=== PATIENT | male | born 1970 | race Caucasian/White ===

== ENCOUNTER 2021-06-05 08:30 | Inpatient (IN) | payer MEDICARE, SELFPAY ==
[2021-06-05] VITALS (14 sets, daily range): BP systolic 81–108; BP diastolic 46–75; PULSE 62–83; RESP 14–20; TEMP 36.1–39.4; O2SAT 94–100; BMI 25.4; BMI 25.7
--- NOTE | 2021-06-05 08:44 | RAD_ITS ---
STUDY: X-RAY CHEST REASON FOR EXAM: Male, 50 years old. Chest pain TECHNIQUE: Single AP portable view of the chest. COMPARISON: Comparison is made with prior study dated 11/25/2011. FINDINGS: EKG electrodes are seen. Patchy bilateral pulmonary infiltrates. Follow-up is recommended. There is no demonstrated pleural abnormality. Sternal cerclage wires are present from a prior sternotomy. Normal mediastinum and ang. Normal visualized pulmonary arteries. Normal visualized aortic arch and descending thoracic aorta. There is a dextroscoliosis of the thoracic spine. Normal visualized ribs, clavicles, and shoulders. There is no demonstrated abnormality of the visualized soft tissue structures of the upper abdomen. RAD/Chest 1 View (Portable) IMPRESSION: Patchy bilateral pulmonary infiltrates. Follow-up is recommended. Electronically Signed: Alex Atkinson MD at 9:15 EDT , Service support ,
--- NOTE | 2021-06-05 08:44 | EKG12_ITS ---
Test Reason : SYNCOPE Blood Pressure : / mmHG Vent. Rate : 061 BPM Atrial Rate : 061 BPM P-R Int : 140 ms QRS Dur : 090 ms QT Int : 430 ms P-R-T Axes : 038 047 027 degrees QTc Int : 432 ms Normal sinus rhythm Incomplete right bundle branch block Confirmed by MATEO PARKER, SHAYNE ([id number]), telegraph editor JOSE ARITA ([id number]) on 06/06/2021 1:21:34 PM Referred By: JANNA Confirmed By:SHAYNE GALINDO MD
--- NOTE | 2021-06-05 09:03 | EDS_ITS ---
HPI History of Present Illness Chief Complaint: Syncope Narrative Narrative: 50-year-old male with high functioning MRDD presenting with syncope. Patient initially had syncope at [facility] on Friday. His father and mother thought that he was just overheated and they put a rag with cold water on him and he seemed to be okay at that point. They state that they all ate at [facility] and all developed a little bit of diarrhea. Patient does states he has some epigastric discomfort. This morning he had an episode of syncope at home which was unwitnessed. His father states that he heard him fall in the bathroom. He states he told him to go get dressed so he can take him to the emergency room. Patient had another episode of syncope. His mother states that he was clammy. He denies any chest pain or shortness of breath. He has nausea without vomiting. His parents state that he has not been eating as much for the last couple of days. She sent him to school yesterday with a sandwich and he came back with half of a sandwich and was not very hungry. She tried to make him chicken soup. They state that he has a history of spontaneous intracranial bleeding in 2011. He had similar symptoms around that time. There is no known head injury. Patient is not on blood thinners. He is not currently having a headache. He states that he has not had fever or coughing. His father states that he watched him through the rearview mirror and he is falling asleep in the car. He was found to be incontinent of urine upon arrival to the ED. There is no known seizure activity. PFSH PFSH Home Medications bupropion HCl 150 mg PO DAILY 06/05/21 [History Last Taken Unknown] cholecalciferol (vitamin D3) [Vitamin D3] 50 mcg PO DAILY 06/05/21 [History Last Taken Unknown] levothyroxine 88 mcg PO DAILY 06/05/21 [History Last Taken Unknown] simvastatin 20 mg PO DAILY 06/05/21 [History Last Taken Unknown] Allergy/AdvReac Type Severity Reaction Status Date / Time No Known Allergies Allergy Verified 06/05/21 08:35 Social History Smoking Status: Never smoker ROS [facility] ED Constitutional Constitutional ED: Denies chills or fever(s) Eyes Eyes: Denies blurry vision or diplopia ENT ENT ED: Denies rhinorrhea or sore throat Cardiovascular Cardiovascular: Denies chest pain, palpitations or racing heartbeat Respiratory/Chest Respiratory/Chest: Denies cough or dyspnea Gastrointestinal Gastrointestinal: Reports abdominal pain, diarrhea and nausea Genitourinary Genitourinary ED: Denies dysuria or hematuria Musculoskeletal Musculoskeletal: Denies arthralgias or myalgias Integumentary Denies abscess or rash Neurologic Neurologic: Denies headache(s) or weakness EXAM Physical Exam Const Vital Signs: 06/05/21 08:31 06/05/21 10:32 Temperature 98.6 F Temperature Source Oral Pulse Rate 64 64 Respiratory Rate 18 18 Blood Pressure 83/65 L 99/69 Blood Pressure Mean 71 79 Pulse Ox 95 94 Oxygen Delivery Method Room Air Room Air Positive well nourished General Appearance ED: NAD; Negative for pallor HEENT Reports moist mucous membranes Negative for trauma or tenderness Eyes PERRL and EOMs intact bilaterally Resp normal respiratory effort and clear to auscultation bilaterally Cardio regular rate and regular rhythm GI GI Narrative: Mild epigastric tenderness. Back/Spine no CVA tenderness Extremity normal to inspection Neuro oriented x3, CN's II-XII intact bilaterally and no sensory deficits noted Sensorium / Orientation: alert Motor Exam: strength 5/5 throughout Psych mental status grossly normal Skin no rashes or lesions noted and no wounds General Skin Exam: Negative for jaundice or pallor MDM MDM MDM Narrative Medical decision making narrative: Patient presenting with 3 episodes of syncope this morning. Patient also had an episode of syncope at [facility] on Friday. His parents state that he has decreased p.o. intake since yesterday. He has not had a known fever. He did complain of some nausea. His EKG on my interpretation is a normal sinus rhythm with a ventricular rate of 61 bpm without sign of ischemic changes. Chest x-ray on my interpretation shows patchy bilateral infiltrates. Patient is leukopenic and lymphopenic. Hemoglobin and hematocrit are stable. Renal function and electrolytes are normal. LFTs are slightly elevated. Patient had a D-dimer of 7.24 [address] a CT of the chest. He does have diffuse pneumonitis but no pulmonary emboli or dissection. CT of the abdomen pelvis showed diffuse bladder wall thickening and bilateral hydronephrosis. Urinalysis was negative for infection. Patient attempted to stand to give a urine sample and had an episode of syncope while in the emergency room. Once he laid down he felt improved. He was immediately responsive and I do not believe he had a seizure. He states that he feels fine when he is laying in bed. Patient's Covid testing did come back positive. He has not required any oxygen. He was given IV fluids and his blood pressure did improve however given that episode of syncope I do not feel he will be safe to go home. Patient discussed with hospitalist and is admitted in stable condition. Impression: 1. Syncope 2. COVID-19 pneumonitis 3. Hypertension Lab Data Labs: Laboratory Results - last 24 hr 06/05/21 06/05/21 06/05/21 09:33 09:33 09:33 WBC 2.1 L RBC 4.69 Hgb 15.2 Hct 44.5 MCV 94.9 H MCH 32.4 H MCHC 34.2 RDW Std Deviation 48.6 H RDW Coeff of Annelise 13.9 Plt Count 82 L MPV 9.3 Immature Gran % (Auto) 1.400 H Neut % (Auto) 78.9 H Lymph % (Auto) 14.4 L [place] % (Auto) 4.8 Eos % (Auto) 0.0 Baso % (Auto) 0.5 Absolute Neuts (auto) 1.7 L Absolute Lymphs (auto) 0.30 L Nucleated RBC % 0 Differential Comment COMMENT Diff Path Review May foll Platelet Estimate MOD DEC PT 13.1 INR 1.1 D-Dimer Quant (PE/DVT) 7.24 H* Sodium 136 Potassium 3.6 Chloride 104 Carbon Dioxide 26.0 Anion Gap 6 BUN 13 Creatinine 1.10 Estim Creat Clear Calc 66.39 Est GFR (MDRD) Af Amer 92 Est GFR (MDRD) Non-Af 76 BUN/Creatinine Ratio 11.8 Glucose 124 H Lactic Acid Calcium 8.1 L Total Bilirubin 0.40 Direct Bilirubin 0.16 AST 189 H ALT 187 H Alkaline Phosphatase 115 Troponin I High Sens 58 Total Protein 6.7 Albumin 2.9 L Globulin 3.8 Lipase 174 Urine Color Urine Clarity Urine pH Ur Specific [place] Urine Protein Urine Glucose (UA) Urine Ketones Urine Occult Blood Urine Nitrite Urine Bilirubin Urine Urobilinogen Ur Leukocyte Esterase Urine RBC Urine WBC Ur Squamous Epith Cells Urine Bacteria Urine Mucus 06/05/21 06/05/21 09:33 11:42 WBC RBC Hgb Hct MCV MCH MCHC RDW Std Deviation RDW Coeff of Annelise Plt Count MPV Immature Gran % (Auto) Neut % (Auto) Lymph % (Auto) [place] % (Auto) Eos % (Auto) Baso % (Auto) Absolute Neuts (auto) Absolute Lymphs (auto) Nucleated RBC % Differential Comment Diff Path Review Platelet Estimate PT INR D-Dimer Quant (PE/DVT) Sodium Potassium Chloride Carbon Dioxide Anion Gap BUN Creatinine Estim Creat Clear Calc Est GFR (MDRD) Af Amer Est GFR (MDRD) Non-Af BUN/Creatinine Ratio Glucose Lactic Acid 1.1 Calcium Total Bilirubin Direct Bilirubin AST ALT Alkaline Phosphatase Troponin I High Sens Total Protein Albumin Globulin Lipase Urine Color Yellow Urine Clarity Clear Urine pH 7.0 Ur Specific [place] 1.010 Urine Protein Negative Urine Glucose (UA) Normal Urine Ketones 5 H Urine Occult Blood 50 H Urine Nitrite Negative Urine Bilirubin Negative Urine Urobilinogen Normal Ur Leukocyte Esterase Negative Urine RBC 0 SEEN Urine WBC 0 SEEN Ur Squamous Epith Cells 0 SEEN Urine Bacteria 0 SEEN Urine Mucus 0 SEEN Radiography Diagnostic Testing: Radiology Impression Chest X-Ray 06/05/21 08:44 IMPRESSION: Patchy bilateral pulmonary infiltrates. Follow-up is recommended. Electronically Signed: Alex Atkinson MD at 9:15 EDT , Service support , Brain CT 06/05/21 09:06 IMPRESSION: Findings in keeping with encephalomalacia in the deep right frontal lobe with mild degree of dilatation of the right lateral ventricle at that site. Electronically Signed: Alex Atkinson MD at 10:59 EDT , Service support , Abdomen/Pelvis CT 06/05/21 09:07 IMPRESSION: Patchy bibasilar pulmonary infiltrates. Fatty infiltration of the liver. Bilateral hydronephrosis. Diffuse bladder wall thickening with small caliber urinary bladder. Electronically Signed: Alex Atkinson MD at 11:02 EDT , Service support , Chest CTA 06/05/21 10:22 IMPRESSION: Diffuse bilateral focal alveolar infiltrates in both lungs. Pneumonitis secondary to Covid should be ruled out. Electronically Signed: Alex Atkinson MD at 11:16 EDT , Service support , Discharge Plan Disposition Disposition: Acute Care Hospital [facility] Discharge Date/Time: 06/05/21 12:43
--- NOTE | 2021-06-05 09:06 | CT_ITS ---
STUDY: CT BRAIN WITHOUT CONTRAST REASON FOR EXAM: Male, 50 years old. Syncope RADIATION DOSAGE (If Supplied By Facility): CTDIvol = ( 44.99 ) mGy, DLP = ( 796.11 ) mGycm TECHNIQUE: Transaxial CT imaging of the brain was performed without administration of intravenous contrast material. Individualized dose optimization techniques were used for this CT. COMPARISON: Comparison is made with prior study dated 09/08/2012. FINDINGS: Normal soft tissue structures. Normal calvarium. Normal size ventricles and extra-axial spaces for the patient''s age. Focal encephalomalacia is seen in the right deep frontal lobe. This most likely represents an old area of infarction. This has progressed as compared to prior study. Mild degree of compensatory dilatation of the right lateral ventricle. Normal basal ganglia and thalami. Normal brainstem. Normal cerebellum. There is no intracranial hemorrhage. There are no findings of an acute ischemic infarction. Normal visualized paranasal sinuses. CT/Brain/Head without Contrast IMPRESSION: Findings in keeping with encephalomalacia in the deep right frontal lobe with mild degree of dilatation of the right lateral ventricle at that site. Electronically Signed: Alex Atkinson MD at 10:59 EDT , Service support ,
--- NOTE | 2021-06-05 09:07 | CT_ITS ---
STUDY: CT ABDOMEN AND PELVIS WITH CONTRAST REASON FOR EXAM: Male, 50 years old. Abdominal pain RADIATION DOSAGE (If Supplied By Facility): CTDIvol = ( 12.99 ) mGy, DLP = ( 1031.89 ) mGycm TECHNIQUE: Transaxial images were obtained from the dome of the diaphragm to the symphysis pubis without oral contrast. IV 100mL Isovue-370 was administered. Sagittal and coronal images were reconstructed. Individualized dose optimization techniques were used for this CT. COMPARISON: None. FINDINGS: Patchy alveolar infiltrates are seen at the lung bases in keeping with her bilateral patchy pneumonias. The visualized portions of the heart are within normal limits. There is decreased attenuation of the liver consistent with steatosis. The patient is status post cholecystectomy. Normal spleen. Normal pancreas. Normal bilateral adrenal glands. Mild degree of bilateral hydronephrosis. Normal visualized stomach. Normal small intestine. Normal colon. The appendix is visualized and appears normal. Normal abdominal aorta. Normal inferior vena cava. Normal retroperitoneum. Diffuse bladder wall thickening. Small capacity urinary bladder. There is a small umbilical hernia containing fat. There are degenerative changes of the visualized lumbar spine. CT/Abdomen/Pelvis W IV Cont ONLY IMPRESSION: Patchy bibasilar pulmonary infiltrates. Fatty infiltration of the liver. Bilateral hydronephrosis. Diffuse bladder wall thickening with small caliber urinary bladder. Electronically Signed: Alex Atkinson MD at 11:02 EDT , Service support ,
[2021-06-05 09:47] LABS: Absolute Neutrophil Count 1.7 X10^3/uL (2.0-7.7); Basophil# 0.01 X10^3/uL; Basophil% 0.5 % (0-1); Differential Indicated SCAN CRITERIA MET; Hematocrit 44.5 % (40-54); Hemoglobin 15.2 g/dL (13.0-16.5); Lymphocyte % 14.4 % (19-41); Mean Corp Hgb Conc 34.2 g/dL (32-36); Mean Corpuscular Hgb 32.4 pg (27.0-32.0); Mean Corpuscular Volume 94.9 fL (80-94); Mean Platelet Vol. 9.3 fl (6.2-12.0); Monocyte% 4.8 % (0-10); NRBC Flagged by Analyzer 0 % (0-5); Neutrophil # 1.65 X10^3/uL (2.7-7.7); Neutrophil % 78.9 % (47-70); POSITIVE COUNT YES; POSITIVE DIFFERENTIAL YES; POSITIVE MORPHOLOGY YES; Platelet Count 82 K/mm3 (150-450); RBC Distribution Width CV 13.9 % (11.6-14.6); RBC Distribution Width SD 48.6 fl (35.1-43.9); Red Blood Count 4.69 M/mm3 (4.6-6.2); White Blood Count 2.1 K/mm3 (4.4-11.0)
[2021-06-05 09:57] LABS: International Normalized Ratio 1.1; Prothrombin Time (Protime)PT. 13.1 SECONDS (11.7-14.9)
[2021-06-05 10:03] LABS: AST(SGOT) 189 U/L (15-37); Alanine Aminotransfer ALT/SGPT 187 U/L (16-61); Albumin, Serum 2.9 g/dL (3.2-5.0); Alkaline Phosphatase 115 U/L (45-117); Anion Gap 6 (5-15); BUN 13 mg/dL (7-18); BUN/Creat Ratio 11.8 RATIO (10-20); Bilirubin, Direct 0.16 mg/dL (0.00-0.30); Calcium,Total 8.1 mg/dL (8.5-10.1); Chloride 104 mmol/L (98-107); EST Glomerular Filtration Rate 76 mL/min (>60); Est Glom Filt Rate - Afr Amer 92 mL/min (>60); Estimated Creatinine Clearance 66.39 ml/min; Globulin 3.8 g/dL (2.2-4.2); Glucose 124 mg/dL (74-106); Lipase 174 U/L (73-393); Potassium 3.6 mmol/L (3.5-5.1); Protein, Total 6.7 g/dL (6.4-8.2); Sodium Level 136 mmol/L (136-145); Troponin-I HS 58 pg/mL (3.0-78.0)
[2021-06-05 10:20] LABS: D-Dimer Quantitative (DVT/PE) 7.24 FEU/ug/m (0.27-0.49)
--- NOTE | 2021-06-05 10:22 | CT_ITS ---
STUDY: CTA CHEST REASON FOR EXAM: Male, 50 years old. Dyspnea RADIATION DOSAGE (If Supplied By Facility): CTDIvol = ( 12.99 ) mGy, DLP = ( 1031.89 ) mGycm TECHNIQUE: The examination was performed with the intravenous administration of IV 100mL Isovue-370. Post-processing of the angiographic images was performed, with multiplanar reformation and 3D reconstruction. Individualized dose optimization techniques were used for this CT. COMPARISON: Comparison is made with prior chest radiograph done earlier in the day. FINDINGS: Normal enhancement of the main pulmonary artery and right and left pulmonary arteries. Normal enhancement of the bilateral peripheral pulmonary arteries. There is no demonstrated pulmonary embolism. Normal thoracic aorta and visualized great vessels. There is no demonstrated aortic dissection. Normal heart and pericardium. Normal mediastinum. Normal hilar regions. Normal visualized trachea and bronchi. The lungs are well expanded. There are diffuse bilateral focal alveolar infiltrates in both lungs. This is more prominent in the lower lobes. Pneumonitis secondary to Covid should be ruled out. Normal pleura. Normal chest wall structures. Normal osseous structures. Normal visualized upper abdomen. CT/CTA Chest W/WO Contrast IMPRESSION: Diffuse bilateral focal alveolar infiltrates in both lungs. Pneumonitis secondary to Covid should be ruled out. Electronically Signed: Alex Atkinson MD at 11:16 EDT , Service support ,
[2021-06-05 10:27] LABS: Platelet Estimate MOD DEC (ADEQ)
[2021-06-05 10:29] LABS: Lactic Acid 1.1 mmol/L (0.4-1.9)
[2021-06-05 11:46] LABS: Bacteria 0 SEEN /hpf (None Seen); Mucous, Urine 0 SEEN /hpf (<or=2+); Red Blood Cells-Urine 0 SEEN /hpf (0-5); Squamous Epithelial Cells - UA 0 SEEN /hpf (0-5); White Blood Cells 0 SEEN /hpf (0-5)
[2021-06-05 11:47] LABS: Color, Urine Yellow (Yellow); Glucose, Dipstick Normal (Normal); Ketone-Dipstick 5 mg/dl (Negative); Leukocyte Esterase-Dipstick Negative /ul (Negative); Nitrite-Dipstick Negative (Negative); Occult Blood-Urine 50 /ul (Negative); Protein-Dipstick Negative (Negative); Urine Bilirubin Dipstick Negative (Negative); Urine Clarity Clear (Clear); Urine Urobilinogen Normal (Normal)
--- NOTE | 2021-06-05 12:06 | NURSING ---
HOSPITALIST FOR DR [facility]
--- NOTE | 2021-06-05 12:14 | NURSING ---
[facility] COVID [facility], SYNCOPE
--- NOTE | 2021-06-05 12:24 | HP.PCM.HOS_ITS ---
HPI - General General Date of Admission: 06/05/21 Date of Service: 06/05/21 Chief Complaint: Recurrent syncope HPI Narrative RAMYA GUILLERMO, is a 50 M who presents with the above. Patient was seen in [place] over the weekend and subsequently was in [facility]. The weather was hot. Patient had a syncopal episode of the symmetry the lasted for few minutes. He was treated like heat exhaustion with cool packs. On the way home to [place], he slept for the most of the journey. On the day of admission, patient was in the bathroom and had a syncopal episode. It was not known how long this lasted. His dad found him on the bathroom floor, helped him out. He asked him to go to the bedroom and change. He had a witnessed syncope. In the emergency room, patient also had and a syncopal episode. He has history of Down syndrome, status post open heart surgery for VSD. History of hemorrhagic stroke in 2011. He has not been vaccinated. Vitals in the ED were low. Patient received IV fluids [facility] Medical History (Updated 06/06/21 @ 07:[address] Laila Bergman MD) Congenital heart disease Stroke, hemorrhagic Home Medications bupropion HCl 150 mg PO DAILY 06/05/21 [History Last Taken Unknown] cholecalciferol (vitamin D3) [Vitamin D3] 50 mcg PO DAILY 06/05/21 [History Last Taken Unknown] levothyroxine 88 mcg PO DAILY 06/05/21 [History Last Taken Unknown] simvastatin 20 mg PO DAILY 06/05/21 [History Last Taken Unknown] Allergy/AdvReac Type Severity Reaction Status Date / Time No Known Allergies Allergy Verified 06/05/21 08:35 Family History (Updated 06/06/21 @ 07:[address] Laila Bergman MD) Father No problems noted. Mother No problems noted. Surgical History (Updated 06/06/21 @ 07:[address] Laila Bergman MD) Hx of cholecystectomy S/P VSD repair Social History (Updated 06/06/21 @ 07:[address] Laila Bergman MD) household members: family Smoking Status: Never smoker alcohol intake: never substance use type: does not use ROS Review of Systems ROS Unobtainable: other Details: Unable to obtain secondary to MRDD Vital Signs Vital Signs Vital Signs: 06/05/21 08:31 06/05/21 10:32 06/05/21 12:21 Temperature 98.6 F 97 F L Temperature Source Oral Temporal Pulse Rate 64 64 67 Respiratory Rate 18 18 20 H Blood Pressure 83/65 L 99/69 98/75 Blood Pressure Mean 71 79 82 Pulse Ox 95 94 95 Oxygen Delivery Method Room Air Room Air Room Air Weight Weight: 57.153 kg Body Mass Index (BMI) 25.4 Physical Exam Narrative Physical exam: General: Alert, Oriented x3, Cooperative, No apparent distress, Well developed HEENT: Atraumatic, moist oral mucosa Oral: Moist Mucosa Neck: Supple Lungs: Clear to auscultation Cardiovascular: HS I+II, regular, no murmurs Abdomen: Bowel Sounds Present, Soft, Non Tender Results Lab / Micro Data Result Diagrams: 06/06/21 06:55 06/06/21 06:55 Labs: Laboratory Results - last 24 hr 06/05/21 09:33: WBC 2.1 L, RBC 4.69, Hgb 15.2, Hct 44.5, MCV 94.9 H, MCH 32.4 H, MCHC 34.2, RDW Std Deviation 48.6 H, RDW Coeff of Annelise 13.9, Plt Count 82 L, MPV 9.3, Immature Gran % (Auto) 1.400 H, Neut % (Auto) 78.9 H, Lymph % (Auto) 14.4 L , [place] % (Auto) 4.8, Eos % (Auto) 0.0, Baso % (Auto) 0.5, Absolute Neuts (auto) 1.7 L, Absolute Lymphs (auto) 0.30 L, Nucleated RBC % 0, Differential Comment COMMENT, Diff Path Review May foll, Platelet Estimate MOD 06/05/21 09:33: Sodium 136, Potassium 3.6, Chloride 104, Carbon Dioxide 26.0, Anion Gap 6, BUN 13, Creatinine 1.10, Estim Creat Clear Calc 66.39, Est GFR (MDRD) Af Amer 92, Est GFR (MDRD) Non-Af 76, BUN/Creatinine Ratio 11.8, Glucose 124 H, Calcium 8.1 L, Total Bilirubin 0.40, Direct Bilirubin 0.16, AST 189 H, ALT 187 H, Alkaline Phosphatase 115, Troponin I High Sens 58, Total Protein 6.7, Albumin 2.9 L, Globulin 3.8, Lipase 174 06/05/21 09:33: PT 13.1, INR 1.1, D-Dimer Quant (PE/DVT) 7.24 H* 06/05/21 09:33: Lactic Acid 1.1 06/05/21 11:42: Urine Color Yellow, Urine Clarity Clear, Urine pH 7.0, Ur Specific [place] 1.010, Urine Protein Negative, Urine Glucose (UA) Normal, Urine Ketones 5 H, Urine Occult Blood 50 H, Urine Nitrite Negative, Urine Bilirubin Negative, Urine Urobilinogen Normal, Ur Leukocyte Esterase Negative, Urine RBC 0 SEEN, Urine WBC 0 SEEN, Ur Squamous Epith Cells 0 SEEN, Urine Bacteria 0 SEEN, Urine Mucus 0 SEEN Micro: Microbiology 06/05/21 09:10 Nasal Secretion SARS-CoV-2 Antigen (Rapid) - Final SARS-CoV-2 (COVID 19) Radiology Impression Chest X-Ray 06/05/21 08:44 IMPRESSION: Patchy bilateral pulmonary infiltrates. Follow-up is recommended. Electronically Signed: Alex Atkinson MD at 9:15 EDT , Service support , Brain CT 06/05/21 09:06 IMPRESSION: Findings in keeping with encephalomalacia in the deep right frontal lobe with mild degree of dilatation of the right lateral ventricle at that site. Electronically Signed: Alex Atkinson MD at 10:59 EDT , Service support , Abdomen/Pelvis CT 06/05/21 09:07 IMPRESSION: Patchy bibasilar pulmonary infiltrates. Fatty infiltration of the liver. Bilateral hydronephrosis. Diffuse bladder wall thickening with small caliber urinary bladder. Electronically Signed: Alex Atkinson MD at 11:02 EDT , Service support , Chest CTA 06/05/21 10:22 IMPRESSION: Diffuse bilateral focal alveolar infiltrates in both lungs. Pneumonitis secondary to Covid should be ruled out. Electronically Signed: Alex Atkinson MD at 11:16 EDT , Service support , Assessment & Plan Assessment/Plan (1) Pneumonia due to COVID-19 virus: (2) Recurrent syncope: (3) Dehydration: PLAN: 1. Recurrent syncope, likely secondary to dehydration, CT brain shows encephalomalacia in the deep right frontal lobe with mild degree of dilatation of the right lateral ventricle. Blood pressure was low in the ED, status post fluid boluses Check orthostatic vitals, continue gentle IV fluids, recheck orthostatic vitals in a.m. 2. Acute COVID-19 pneumonia without hypoxia, Chest x-ray shows bilateral patchy pulmonary infiltrates CTA chest shows diffuse bilateral focal alveolar infiltrates in both lungs. We will continue to monitor patient 3. Leukopenia secondary to COVID-19 pneumonia, will trend 4. Elevated D-dimer, acute PE ruled out 5. Elevated liver function test secondary to COVID-19 pneumonia, will trend 6. Slight elevation in troponin, likely demand secondary to #2 EKG shows no acute ST changes We will get 2D echo 7. Abnormal CT of the abdomen and pelvis - Bilateral hydronephrosis, diffuse bladder wall thickening with small caliber urinary bladder.\ UA is unremarkable Will start empiric antibiotics, urology consult, check bladder scan, possible gibson catheter placement Charges/Coding Visit Charges Inpatient E&M: 77930 Init Hosp L3
[2021-06-05] MEDS: 0.9% Normal Saline 1,000 ML 999 ML IV (12:40)
[2021-06-05 14:21] LABS: Troponin-I HS 80 pg/mL (3.0-78.0)
[2021-06-05 16:30] LABS: Troponin-I HS 81 pg/mL (3.0-78.0)
[2021-06-05] MEDS: Mag Hydrox/Al Hydrox/Simeth 30 ML UDC PO (21:09)
[2021-06-05] MEDS: Acetaminophen 325 MG Tablet 650 MG PO (21:10)
[2021-06-05] MEDS: 0.9% Normal Saline 1,000 ML 100 ML IV (21:26)
[2021-06-05] MEDS: Ceftriaxone 1 GM/50 ML BAG IV (21:27)
[2021-06-05] MEDS: Atorvastatin Calcium 10 MG Tablet PO (23:33)
[2021-06-05] MEDS: buPROPion (XL) 150 MG TABLET.XL PO (23:33)
[2021-06-05] MEDS: Levothyroxine 88 MCG Tablet PO (23:33)
[2021-06-06 02:55] VITALS: PULSE 67
[2021-06-06 05:45] VITALS: BP 95/60; PULSE 64; RESP 18; TEMP 36.9; O2SAT 93
[2021-06-06 07:00] VITALS: PULSE 61
[2021-06-06 07:10] LABS: Absolute Lymphocyte Count 0.55 X10^3/uL (0.83-4.51); Absolute Neutrophil Count 1.8 X10^3/uL (2.0-7.7); Basophil# 0.01 X10^3/uL; Basophil% 0.4 % (0-1); Hematocrit 41.3 % (40-54); Hemoglobin 14.1 g/dL (13.0-16.5); Lymphocyte # 0.55 X10^3/ul (0.83-4.51); Lymphocyte % 22.2 % (19-41); Mean Corp Hgb Conc 34.1 g/dL (32-36); Mean Corpuscular Hgb 32.3 pg (27.0-32.0); Mean Corpuscular Volume 94.5 fL (80-94); Mean Platelet Vol. 9.6 fl (6.2-12.0); NRBC Flagged by Analyzer 0 % (0-5); Neutrophil # 1.81 X10^3/uL (2.7-7.7); POSITIVE COUNT YES; POSITIVE DIFFERENTIAL YES; POSITIVE MORPHOLOGY YES; Platelet Count 85 K/mm3 (150-450); RBC Distribution Width CV 13.9 % (11.6-14.6); RBC Distribution Width SD 48.6 fl (35.1-43.9); Red Blood Count 4.37 M/mm3 (4.6-6.2); White Blood Count 2.5 K/mm3 (4.4-11.0)
[2021-06-06 07:12] LABS: Differential Indicated SCAN CRITERIA MET
--- NOTE | 2021-06-06 07:27 | ECHOD_ITS ---
Reason For Study: Syncope Procedure This was a 2D Doppler, Color Flow transthoracic echocardiogram. The study was technically difficult. Exam performed portable in patient room. The exam was abbreviated due to the COVID 19 protocol. Left Ventricle Normal LV size. Left ventricular systolic function is normal. The estimated ejection fraction is 55 %. No evidence for diastolic dysfunction. No regional wall motion abnormalities noted. Right Ventricle Normal RV size. Normal systolic function. Atria Normal left atrium. Normal right atrium. No doppler evidence for ASD. Mitral Valve There is no mitral annular calcification. Normal mitral valve. Trivial mitral valve insufficiency. Tricuspid Valve Normal tricuspid valve. Trivial tricuspid valve insufficiency. Right ventricular systolic pressure estimated to be 21 mmHg. Aortic Valve Trisinus/trileaflet aortic valve. Mild focal aortic valve thickening. Pulmonic Valve The pulmonic valve is not well visualized. Trivial pulmonic valve insufficiency. Great Vessels Normal sized aortic root. Pericardium/Pleural No pericardial effusion. MMode/2D Measurements & Calculations LVIDd: 3.7 cm IVSd: 0.76 cm Ao root diam: 3.2 cm LVIDs: 2.4 cm LVPWd: 0.68 cm FS: 35.6 % LAV(MOD-bp): 25.6 ml LA A4 area: 12.1 cm2 LA dimension(2D): 3.5 cm LAV(MOD-bp) Indexed: 16.9 ml/m2 LAV(MOD-sp2): 22.2 ml LAV(MOD-sp4): 26.5 ml RA A4 area: 8.7 cm2 Doppler Measurements & Calculations MV E max ronnie: 92.5 cm/sec Lat Peak E' Ronnie: 11.3 cm/sec Med Peak E' Ronnie: 9.4 cm/sec MV A max ronnie: 52.8 cm/sec E/E' lat: 8.2 E/E' med: 9.8 MV E/A: 1.8 Ao V2 max: 92.5 cm/sec LV V1 max: 77.8 cm/sec PA V2 max: 94.4 cm/sec Ao max P.4 mmHg LV V1 max P.4 mmHg TR max ronnie: 209.9 cm/sec TR max P.6 mmHg ECHO/Echo Complete Interpretation Summary The study was technically difficult. Left ventricular systolic function is normal. The estimated ejection fraction is 55 %. Trivial mitral valve insufficiency. Trivial tricuspid valve insufficiency. Mild focal aortic valve thickening. Trivial pulmonic valve insufficiency. Right ventricular systolic pressure estimated to be 21 mmHg. No evidence for diastolic dysfunction. Ordering Physician: Laila Bergman Referring Physician: Sunday Mcclelland Performed By: Patricia Norris RDCS
[2021-06-06 07:29] LABS: ALB/GLOB Ratio 0.7 RATIO (0.9-2.4); AST(SGOT) 147 U/L (15-37); Alanine Aminotransfer ALT/SGPT 148 U/L (16-61); Albumin, Serum 2.3 g/dL (3.2-5.0); Alkaline Phosphatase 103 U/L (45-117); Anion Gap 5 (5-15); BUN 9 mg/dL (7-18); BUN/Creat Ratio 11.2 RATIO (10-20); Calcium,Total 7.4 mg/dL (8.5-10.1); Chloride 108 mmol/L (98-107); EST Glomerular Filtration Rate 109 mL/min (>60); Est Glom Filt Rate - Afr Amer 131 mL/min (>60); Estimated Creatinine Clearance 92.16 ml/min; Globulin 3.2 g/dL (2.2-4.2); Glucose 119 mg/dL (74-106); Potassium 3.5 mmol/L (3.5-5.1); Protein, Total 5.5 g/dL (6.4-8.2); Sodium Level 139 mmol/L (136-145)
[2021-06-06 07:43] LABS: Platelet Estimate MOD DEC (ADEQ)
[2021-06-06] MEDS: 0.9% Normal Saline 1,000 ML 100 ML IV (09:26)
[2021-06-06] MEDS: Cholecalciferol (VIT D3) 25 MCG TABLET (1,000 UNITS) 50 MCG PO (09:27)
[2021-06-06] MEDS: buPROPion (XL) 150 MG TABLET.XL PO (09:27)
[2021-06-06 09:40] VITALS: BP 91/57; PULSE 60; RESP 18; TEMP 37.1; O2SAT 96
--- NOTE | 2021-06-06 11:25 | PCM.DC ---
Discharge Instructions Diet Discharge Diet: No restrictions Activity Discharge Activity: Return to Normal Activity Follow Up Care Test Results: Test results from this visit will be discussed in further detail at your follow-up appointment, if applicable. Discharge Plan Admission Admit Date/Time: 06/05/21 12:07 Primary Reason for Your Visit: Recurrent syncope Attending Provider: Laila Bergman Primary Care Provider: Sunday Mcclelland Consulting Providers: Coy Drake Instructions Additional Instructions / Restrictions: Take note of your new medications. Complete your antibiotics. Keep yourself hydrated. Follow-up with your primary care doctor within 2 weeks. Continue to current time for a total of 10 days from start of symptoms. Discharge Orders/Prescriptions Prescriptions: New cefdinir 300 mg Capsule 300 mg PO Q12 5 Days Qty: 10 RF: 0 tamsulosin [Flomax] 0.4 mg capsule 0.4 mg PO DAILY 30 Days Qty: 30 RF: 0 Continued levothyroxine 88 mcg tablet 88 mcg PO DAILY RF: 0 simvastatin 20 mg tablet 20 mg PO DAILY RF: 0 bupropion HCl 150 mg tablet extended release 24 hr 150 mg PO DAILY RF: 0 cholecalciferol (vitamin D3) [Vitamin D3] 50 mcg (2,000 unit) Tablet 50 mcg PO DAILY RF: 0 Referrals / Follow Up: Sunday Mcclelland MD [Primary Care Provider] - Within 2 Weeks Coy Drake MD [STAFF PHYSICIAN] - Within 2 Weeks Disposition Disposition (needs filled in before D/C Order can be placed): Home, Self Care
--- NOTE | 2021-06-06 11:29 | PCM.PN.BLA ---
Progress Note 50-year-old male seen here today had a CAT scan done that demonstrated some mild hydronephrosis bilaterally but this does not look from obstruction just looks normal anatomy I do not think there is no hydroureter. He does have a very thickened bladder on CAT scan he has some symptoms of obstruction I wonder if he has some chronic obstruction from his prostate recommend we put him on Flomax and also an antibiotic he can follow-up in my office as a new patient in a few weeks.
--- NOTE | 2021-06-06 11:37 | DS.PCM_ITS ---
Providers Date of Admission: 06/05/21 Date of Discharge: 06/06/21 Primary Care Physician: Dr. Sunday Mcclelland MD Consultations 06/05/21 19:09 Consult: Urology Routine Consulting Provider: Coy Drake Reason for Consult: Abnormal CT scan EMERGENT Consult: No MD Notified: Yes Date Notified: 06/05/21 Time Notified: 19:09 Method of Notification: Verbal Reason For Visit: SYNCOPE/COVID19 Diagnosis Discharge Diagnosis (1) Pneumonia due to COVID-19 virus: Status: Acute Code(s): U07.1 - COVID-19; J12.82 - Pneumonia due to coronavirus disease 2019 (2) Recurrent syncope: Status: Acute Code(s): R55 - Syncope and collapse (3) Dehydration: Status: Acute Code(s): E86.0 - Dehydration (4) BPH (benign prostatic hyperplasia): Status: Acute Code(s): N40.0 - Benign prostatic hyperplasia without lower urinary tract symptoms (5) Elevated d-dimer: Status: Acute Code(s): R79.89 - Other specified abnormal findings of blood chemistry (6) Abnormal CT of the abdomen: Status: Acute Code(s): R93.5 - Abnormal findings on diagnostic imaging of other abdominal regions, including retroperitoneum (7) UTI symptoms: Status: Acute Code(s): R39.9 - Unspecified symptoms and signs involving the genitourinary system Medications at Discharge Home Medications bupropion HCl 150 mg PO DAILY 06/05/21 cholecalciferol (vitamin D3) [Vitamin D3] 50 mcg PO DAILY 06/05/21 levothyroxine 88 mcg PO DAILY 06/05/21 simvastatin 20 mg PO DAILY 06/05/21 cefdinir 300 mg PO BID 5 Days #10 cap 06/06/21 tamsulosin [Flomax] 0.4 mg PO DAILY 30 Days #30 cap 06/06/21 Hospital Course Operations None Procedures 2-D Echocardiogram Summary of Care Provided Minutes Spent on Discharge: 50 Hospital Course: 50-year-old male with past medical history of MRDD, history of VSD status post repair, 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 Patient was with his parents in [place] and subsequently went to [facility]. The weather was hot. [place] Subsequently he had 3 syncopal episodes on the day of admission. Patient's blood pressure was low in the 70s?80s in the ED. Patient received IV fluids. His work-up was unremarkable except for positive Covid. He was not on oxygen. CT of the chest showed diffuse bilateral focal alveolar infiltrates in both lungs. Chest x-ray showed patchy bilateral pulmonary infiltrates. Abdomen/pelvis CT shows bilateral hydronephrosis, fatty infiltration of the liver, diffuse bladder wall thickening with small caliber urinary bladder. Patient's UA was unremarkable. He was started on empiric antibiotics-IV ceftriaxone. Urology was consulted. Bladder scan was normal. Urology felt that patient had BPH. Recommended the patient be started on Flomax. He was discharged on empiric 5 days of antibiotics -cefdinir. He will follow up with urology outpatient. His orthostatic vitals were negative during this hospital stay. He was recomm ended to complete 10 days of quarantine. Physical Exam Narrative Physical exam: General: Alert, Oriented x3, Cooperative, No apparent distress, Well developed HEENT: Atraumatic, moist oral mucosa Oral: Moist Mucosa Neck: Supple Lungs: Clear to auscultation Cardiovascular: HS I+II, regular, no murmurs Abdomen: Bowel Sounds Present, Soft, Non Tender Weight / BMI Weight Weight: 59.6 kg Body Mass Index (BMI) 25.7 ABG / Lab / Microbiology Data Result Diagrams: 06/06/21 06:55 06/06/21 06:55 Laboratory: Laboratory Results - last 24 hr 06/05/21 11:42: Urine Color Yellow, Urine Clarity Clear, Urine pH 7.0, Ur Specific [place] 1.010, Urine Protein Negative, Urine Glucose (UA) Normal, Urine Ketones 5 H, Urine Occult Blood 50 H, Urine Nitrite Negative, Urine Bilirubin Negative, Urine Urobilinogen Normal, Ur Leukocyte Esterase Negative, Urine RBC 0 SEEN, Urine WBC 0 SEEN, Ur Squamous Epith Cells 0 SEEN, Urine Bacteria 0 SEEN, Urine Mucus 0 SEEN 06/05/21 13:56: Troponin I High Sens 80 H 06/05/21 15:50: Troponin I High Sens 81 H 06/06/21 06:55: WBC 2.5 L, RBC 4.37 L, Hgb 14.1, Hct 41.3, MCV 94.5 H, MCH 32.3 H, MCHC 34.1, RDW Std Deviation 48.6 H, RDW Coeff of Annelise 13.9, Plt Count 85 L, MPV 9.6, Immature Gran % (Auto) 0.400, Neut % (Auto) 73.0 H, Lymph % (Auto) 22.2, [place] % (Auto) 4.0, Eos % (Auto) 0.0, Baso % (Auto) 0.4, Absolute Neuts (auto) 1.8 L, Absolute Lymphs (auto) 0.55 L, Nucleated RBC % 0, Differential Comment COMMENT, Diff Path Review January foll, Platelet Estimate MOD 06/06/21 06:55: Sodium 139, Potassium 3.5, Chloride 108 H, Carbon Dioxide 26.0, Anion Gap 5, BUN 9, Creatinine 0.80, Estim Creat Clear Calc 92.16, Est GFR (MDRD) Af Amer 131, Est GFR (MDRD) Non-Af 109, BUN/Creatinine Ratio 11.2, Glucose 119 H, Calcium 7.4 L, Total Bilirubin 0.30, AST 147 H, ALT 148 H, Alkaline Phosphatase 103, Total Protein 5.5 L, Albumin 2.3 L, Globulin 3.2, Albumin/Globulin Ratio 0.7 L Microbiology: Microbiology 06/05/21 11:42 Urine, Clean Catch Urine Culture - Preliminary Culture exhibits no growth. 06/05/21 09:10 Nasal Secretion SARS-CoV-2 Antigen (Rapid) - Final SARS-CoV-2 (COVID 19) Radiography Diagnostic Testing: Radiology Impression Echocardiogram 06/06/21 07:27 Interpretation Summary The study was technically difficult. Left ventricular systolic function is normal. The estimated ejection fraction is 55 %. Trivial mitral valve insufficiency. Trivial tricuspid valve insufficiency. Mild focal aortic valve thickening. Trivial pulmonic valve insufficiency. Right ventricular systolic pressure estimated to be 21 mmHg. No evidence for diastolic dysfunction. Ordering Physician: Laila Bergman Referring Physician: Sunday Mcclelland Performed By: Patricia Norris RDCS D/C Instructions Discharge Diet: No restrictions Meaningful Use Info Meaningful Use Diagnoses (Choose all that apply): None applicable Discharge Plan Admission Admit Date/Time: 06/05/21 12:07 Primary Reason for Your Visit: Recurrent syncope Attending Provider: Laila Bergman Primary Care Provider: Sunday Mcclelland Consulting Providers: Coy Drake Instructions Additional Instructions / Restrictions: Take note of your new medications. Complete your antibiotics. Keep yourself hydrated. Follow-up with your primary care doctor within 2 weeks. Continue to current time for a total of 10 days from start of symptoms. Discharge Orders/Prescriptions Prescriptions: New tamsulosin [Flomax] 0.4 mg capsule 0.4 mg PO DAILY 30 Days Qty: 30 RF: 0 cefdinir 300 mg capsule 300 mg PO BID 5 Days Qty: 10 RF: 0 Continued levothyroxine 88 mcg tablet 88 mcg PO DAILY RF: 0 simvastatin 20 mg tablet 20 mg PO DAILY RF: 0 bupropion HCl 150 mg tablet extended release 24 hr 150 mg PO DAILY RF: 0 cholecalciferol (vitamin D3) [Vitamin D3] 50 mcg (2,000 unit) Tablet 50 mcg PO DAILY RF: 0 Referrals / Follow Up: Sunday Mcclelland MD [Primary Care Provider] - Within 2 Weeks Coy Drake MD [STAFF PHYSICIAN] - Within 2 Weeks Disposition Disposition (needs filled in before D/C Order can be placed): Home, Self Care Charges/Coding Visit Charges Inpatient E&M: 70222 Disch Hosp
[2021-06-06] MEDS: Potassium Chloride Oral Tablet 20 MEQ PO (12:08)
[2021-06-06 12:23] VITALS: BP 91/57; PULSE 60; RESP 18; TEMP 37.1; O2SAT 96
--- NOTE | 2021-06-06 12:28 | PCM.CONS.U ---
Assessment & Plan Assessment/Plan (1) BPH (benign prostatic hyperplasia): HPI Consult Data Date of Consult: 06/06/21 HPI Narrative HPI Narrative: RAMYA GUILLERMO, is a 50 M who presents to the hospital with episodes of syncope, work-up has been negative. History of Down syndrome, CAT scan revealed dilated renal pelvises bilaterally but no hydroureter or hydronephrosis does have a very thickened bladder and the family does report some difficulty with urination frequency at night can sleep the whole night through during the daytime has to go frequently has a slow stream occasionally a strong stream. CAT scan does demonstrate a very thick bladder but no obvious tumors. The prostate does not appear to be enlarged on CAT scan but I suspect he has outlet obstruction. [facility] Medical History (Updated 06/06/21 @ 12:[address] Coy Drake MD) Congenital heart disease Stroke, hemorrhagic Home Medications bupropion HCl 150 mg PO DAILY 06/05/21 [History Last Taken Unknown] cholecalciferol (vitamin D3) [Vitamin D3] 50 mcg PO DAILY 06/05/21 [History Last Taken Unknown] levothyroxine 88 mcg PO DAILY 06/05/21 [History Last Taken Unknown] simvastatin 20 mg PO DAILY 06/05/21 [History Last Taken Unknown] cefdinir 300 mg PO BID 5 Days #10 cap 06/06/21 [Rx Last Taken Unknown] tamsulosin [Flomax] 0.4 mg PO DAILY 30 Days #30 cap 06/06/21 [Rx Last Taken Unknown] Allergy/AdvReac Type Severity Reaction Status Date / Time No Known Allergies Allergy Verified 06/05/21 08:35 Family History (Updated 06/06/21 @ 07:[address] Laila Bergman MD) Father No problems noted. Mother No problems noted. Surgical History (Updated 06/06/21 @ 07:[address] Laila Bergman MD) Hx of cholecystectomy S/P VSD repair Social History (Updated 06/06/21 @ 07:[address] Laila Bergman MD) household members: family Smoking Status: Never smoker alcohol intake: never substance use type: does not use ROS Constitutional Constitutional: Denies chills, fever(s) or malaise Eyes Eyes: Denies blurry vision or change in vision ENT HEENT: Reports none Cardiovascular Cardiovascular: Denies chest pain or palpitations Respiratory/Chest Respiratory/Chest: Denies cough or shortness of breath with exertion Gastrointestinal Gastrointestinal: Denies abdominal pain, constipation or diarrhea Musculoskeletal Musculoskeletal: Denies back pain, joint stiffness or joint swelling Integumentary Integumentary: Denies dry skin, jaundice, lesions or rash Neurologic Neurologic: Denies confusion, syncope or weakness Psychiatric Psychiatric: Reports none; Denies anxiety or depression Endocrine Endocrinology: Denies excessive sweating, fatigue or flushing Hematologic/Lymphatic Hematologic/Lymphatic: Denies anemia, easy bleeding or easy bruising Physical Exam Const alert and oriented x3 General Appearance: cooperative HEENT normocephalic, head/scalp atraumatic, EAC's normal and TM's normal bilaterally Eyes PERRL and EOMs intact bilaterally Pupil: sluggish Neck no lymphadenopathy, supple and no JVD General: trachea midline Lymph Lymphatic: no lymphadenopathy noted, lymphedema and lymphadenopathy Resp normal respiratory effort, normal air movement and clear to auscultation bilaterally Cardio regular rate, regular rhythm and peripheral pulses 2+ throughout GI soft to palpation, non-tender and non-distended Extremity normal capillary refill and no clubbing, cyanosis or edema General Extremity: no tenderness to palpation of joints or extremities Skin no rashes or lesions noted General Skin Exam: turgor normal Lesions: no lesions Rashes: no rashes Neuro CN's II-XII intact bilaterally Speech: speech normal Motor Exam: strength 5/5 throughout; Negative for general weakness Psych thought process normal, cooperative and affect normal Appearance: appropriate Lab / Micro Data Result Diagrams: 06/06/21 06:55 06/06/21 06:55 Labs: Laboratory Results - last 24 hr 06/05/21 13:56: Troponin I High Sens 80 H 06/05/21 15:50: Troponin I High Sens 81 H 06/06/21 06:55: WBC 2.5 L, RBC 4.37 L, Hgb 14.1, Hct 41.3, MCV 94.5 H, MCH 32.3 H, MCHC 34.1, RDW Std Deviation 48.6 H, RDW Coeff of Annelise 13.9, Plt Count 85 L, MPV 9.6, Immature Gran % (Auto) 0.400, Neut % (Auto) 73.0 H, Lymph % (Auto) 22.2, [place] % (Auto) 4.0, Eos % (Auto) 0.0, Baso % (Auto) 0.4, Absolute Neuts (auto) 1.8 L, Absolute Lymphs (auto) 0.55 L, Nucleated RBC % 0, Differential Comment COMMENT, Diff Path Review May foll, Platelet Estimate MOD 06/06/21 06:55: Sodium 139, Potassium 3.5, Chloride 108 H, Carbon Dioxide 26.0, Anion Gap 5, BUN 9, Creatinine 0.80, Estim Creat Clear Calc 92.16, Est GFR (MDRD) Af Amer 131, Est GFR (MDRD) Non-Af 109, BUN/Creatinine Ratio 11.2, Glucose 119 H, Calcium 7.4 L, Total Bilirubin 0.30, AST 147 H, ALT 148 H, Alkaline Phosphatase 103, Total Protein 5.5 L, Albumin 2.3 L, Globulin 3.2, Albumin/Globulin Ratio 0.7 L Micro: Microbiology 06/05/21 11:42 Urine, Clean Catch Urine Culture - Preliminary Culture exhibits no growth. 06/05/21 09:10 Nasal Secretion SARS-CoV-2 Antigen (Rapid) - Final SARS-CoV-2 (COVID 19) Radiology Impression Echocardiogram 06/06/21 07:27 Interpretation Summary The study was technically difficult. Left ventricular systolic function is normal. The estimated ejection fraction is 55 %. Trivial mitral valve insufficiency. Trivial tricuspid valve insufficiency. Mild focal aortic valve thickening. Trivial pulmonic valve insufficiency. Right ventricular systolic pressure estimated to be 21 mmHg. No evidence for diastolic dysfunction. Ordering Physician: Laila Bergman Referring Physician: Sunday Mcclelland Performed By: Patricia Norris, JORGE
--- NOTE | 2021-06-06 12:40 | CASEMGMT ---
RN [facility] [employer] CM to room to meet with patient and father who is at bedside for initial transition planning/care coordination assessment. SUHAS BYRD introduced self and role at [facility]. Pt is [facility]. Father voices understanding and consents to assessment at this time. Pt sitting up in recliner chair in room in no distress at this time. Care providers, pharmacy, and demographics verified/updated at this time w/father and the following information also obtained from pt's father. PCP: Dr Mcclelland Specialists:None previously. They are planning on scheduling appt w/Dr Drake Preferred Pharmacy: [facility] Retail Insurance: [employer] Secure Prescription Benefit: Yes LNOK: Parents: Leonardo Living Arrangements: Lives w/his parents in 2-story home w/2 steps to enter. No difficulty w/stairs. Pt is independent w/ADL's, does his own laundry and some cooking. Parents help to take care of pt. Pt involved in [facility]: [employer] [facility] [employer] recovery program @ the [facility]. He goes M-F from 11:30-3 PM. They provide transportation to/from. Pt also goes to [employer] program Tues and Thurs. Transportation: Parents DME: Uses no DME and father declines any needs. If pt qualifies for O2, father has no preference of DME co. He was provided w/list of local DME co. HHC/SNF: Hx of [facility] RU after cerebral hemorrhage in 2011. Father declines need for HHC or OP therapy. Father wishes for pt to return home and states has no concerns with him going home at time of discharge. CM to follow for home oxygen needs and any further discharge planning/needs. Father voices no concerns/needs at this time. Advised him to ask for CM if any further questions/concerns/needs arise. Voices understanding. PLAN: Home w/family support and discharge plans in place. Follow for any O2 needs @ discharge. Mick ALVES RN, CM
[2021-06-06] MEDS: Cefdinir 300 MG Capsule PO (13:19)
[2021-06-06 13:20] VITALS: O2SAT 96; O2SAT 97
--- NOTE | 2021-06-06 13:23 | PHA.DC.MR ---
Pharmacy Service has performed discharge medication reconciliation for this patient. The patient's discharge medication list was reviewed for discrepancies and discrepancies were resolved. Cefdinir was not transmitted to a pharmacy. This [facility] spoke with Dr. Bergman who then re-sent the prescription. Home Medications bupropion HCl 150 mg PO DAILY 06/05/21 cholecalciferol (vitamin D3) [Vitamin D3] 50 mcg PO DAILY 06/05/21 levothyroxine 88 mcg PO DAILY 06/05/21 simvastatin 20 mg PO DAILY 06/05/21 cefdinir 300 mg PO BID 5 Days #10 cap 06/06/21 tamsulosin [Flomax] 0.4 mg PO DAILY 30 Days #30 cap 06/06/21
--- NOTE | 2021-06-06 13:25 | CASEMGMT ---
No therapy recommended per notes. Awaiting ambulatory pulse ox prior to discharge. SStsilvio DAI CM
[2021-06-06 13:38] LABS: Pathologist Review Reviewed
[2021-06-06 13:44] LABS: Pathologist Review Reviewed
--- NOTE | 2021-06-06 14:07 | CASEMGMT ---
Per Sukhwinder, pt does not qualify for O2 at rest or with ambulation at this time. SStsilvio DAI CM
--- NOTE | 2021-06-07 15:02 | CASEMGMT ---
SUHAS BYRD Discharge F/U Phone Call LACE: 9 Strata: 2 Discharge date: 06/06/21 Call date: 06/07/21 Call time: [id number] Admission dx: Syncope/COVID 19 Call to pt's mom and she states pt 'seems pretty good.' Mother states they do have a pulse ox at home and mother aware to occasionally check, voices understanding. Mother states f/u appt with PCP on 06/21/21 and mother states no questions with d/c instructions/medications. Mother states no suggestions for [facility] and states It was good, they let us stay with him. Mother voices no further questions/concerns/needs. SStaten SUHAS BYRD
== END 2021-06-06 15:09 | disposition home or self-care (01) | DRG 177 ==
LOC: ED 09:32 → PCU 12:32
PROVIDERS: Admitting Provider Internal Medicine; Emergency Provider Student in an Organized Health Care Education/Training Program; PCP Family Medicine; Visit Provider Internal Medicine
DX: U07.1 COVID-19 (principal); J12.82 Pneumonia due to coronavirus disease 2019; N13.30 Unspecified hydronephrosis; R55 Syncope and collapse; N40.0 Benign prostatic hyperplasia without lower urinary tract symptoms; I10 Essential (primary) hypertension; Q90.9 Down syndrome, unspecified; Z86.73 Personal history of transient ischemic attack (TIA), and cerebral infarction without residual deficits; Z79.899 Other long term (current) drug therapy; E86.0 Dehydration; D72.819 Decreased white blood cell count, unspecified; R79.1 Abnormal coagulation profile; R94.5 Abnormal results of liver function studies; Z87.74 Personal history of (corrected) congenital malformations of heart and circulatory system; K76.0 Fatty (change of) liver, not elsewhere classified
CPT/HCPCS: 36415; 70450; 71045; 71275; 74177; 80048; 80053; 80076; 81001; 83605; 83690; 84484; 85025; 85379; 85610; 87040; 87086; 87426; 93005; 93306; 97162; 97165; 97802; 99285; J7030; J7040; Q9967

== ENCOUNTER 2021-06-09 11:04 | Inpatient (IN) | payer MEDICARE, SELFPAY ==
[2021-06-09] VITALS (13 sets, daily range): BP systolic 87–104; BP diastolic 53–66; PULSE 59–79; RESP 18–33; TEMP 36.3–37.1; O2SAT 89–96; BMI 27.5; BMI 26.4
--- NOTE | 2021-06-09 11:18 | RAD_ITS ---
STUDY: X-RAY CHEST REASON FOR EXAM: Male, 50 years old. Dyspnea TECHNIQUE: Single AP portable view of the chest. COMPARISON: June 05, 2021 chest x-ray FINDINGS: There are multiple focal patchy groundglass opacities throughout the lungs. There is no demonstrated pleural abnormality. Sternal cerclage wires are present from a prior sternotomy. Normal mediastinum and ang. Normal visualized pulmonary arteries. Normal visualized aortic arch and descending thoracic aorta. Normal visualized thoracic spine. Normal visualized ribs, clavicles, and shoulders. There is no demonstrated abnormality of the visualized soft tissue structures of the upper abdomen. RAD/Chest 1 View (Portable) IMPRESSION: Multifocal pneumonia. Slightly worse than prior study Electronically Signed: Ban An MD at 12:19 EDT Tel , Service support ,
--- NOTE | 2021-06-09 11:18 | EKG12_ITS ---
Test Reason : SOB Blood Pressure : / mmHG Vent. Rate : 070 BPM Atrial Rate : 070 BPM P-R Int : 136 ms QRS Dur : 084 ms QT Int : 404 ms P-R-T Axes : 028 056 052 degrees QTc Int : 436 ms Normal sinus rhythm Abnormal ECG Confirmed by MATEO PARKER, SHAYNE ([id number]), online editor JOSE ARITA ([id number]) on 06/11/2021 10:34:50 AM Referred By: REGGIE Confirmed By:SHAYNE GALINDO MD
--- NOTE | 2021-06-09 11:20 | ED.VIS.DYS ---
HPI History of Present Illness Chief Complaint: Shortness of Breath Detail of Chief Complaint: Generalized weakness, hypotension, and hypoxemia Informant: parent Narrative Narrative: Patient presents to the ED via EMS from home. Patient was diagnosed with COVID-19 on June 05 and was admitted to this hospital for syncope and hypotension overnight. Today patient went to the bathroom and he was too weak needed assistance ambulating. Parents checked this oxygen saturation and it was in the 70s at times in the 80s. Patient also noted to have low blood pressure. Both parents of had Covid remotely. Patient does admit to some chest discomfort but is somewhat of a poor historian. He does have history of Down syndrome as well as high cholesterol, prior hemorrhagic stroke, and hypothyroidism. Patient had had history of ventricular septal defect repair. [facility] Medical History (Updated 06/09/21 @ 12:[address] Cassy Obregon DO) Congenital heart disease Stroke, hemorrhagic Home Medications bupropion HCl 150 mg PO DAILY 06/05/21 [History Last Taken Unknown] cholecalciferol (vitamin D3) [Vitamin D3] 50 mcg PO DAILY 06/05/21 [History Last Taken Unknown] levothyroxine 88 mcg PO DAILY 06/05/21 [History Last Taken Unknown] simvastatin 20 mg PO DAILY 06/05/21 [History Last Taken Unknown] cefdinir 300 mg PO BID 5 Days #10 cap 06/06/21 [Rx Last Taken Unknown] tamsulosin [Flomax] 0.4 mg PO DAILY 30 Days #30 cap 06/06/21 [Rx Last Taken Unknown] Allergy/AdvReac Type Severity Reaction Status Date / Time No Known Allergies Allergy Verified 06/09/21 11:08 Family History (Updated 06/06/21 @ 07:[address] Laila Bergman MD) Father No problems noted. Mother No problems noted. Surgical History Hx of cholecystectomy S/P VSD repair Social History (Updated 06/06/21 @ 07:[address] Laila Bergman MD) household members: family Smoking Status: Never smoker alcohol intake: never substance use type: does not use ROS ROS ED Constitutional Constitutional ED: Reports systems reviewed and no addt'l complaints, except as documented; Denies body ache(s), change in weight or chills Eyes Eyes: Denies acute decrease in peripheral vision, change in vision, double vision or loss of vision ENT ENT ED: Reports none; Denies ear pain, lip swelling, loss taste/smell, neck pain, otalgia or sore throat Cardiovascular Cardiovascular: Reports none and chest pain; Denies abdominal pain, chest pain with activity, leg edema, lightheadedness, palpitations, rapid heart rate or syncope Respiratory/Chest Respiratory/Chest: Reports none, cough and dyspnea; Denies change in mental status, dry cough, hemoptysis, shortness of breath at rest or shortness of breath with exertion Gastrointestinal Gastrointestinal: Reports none; Denies abdominal pain, change in stool character, diarrhea, hematemesis, hematochezia, melena, rectal bleeding or vomiting Genitourinary Genitourinary ED: Reports none; Denies abdominal discomfort, anuria, dysuria, genital pain or polyuria Musculoskeletal Musculoskeletal: Reports none; Denies arthralgias, back pain, difficulty walking, extremity pain, muscle weakness or myalgias Integumentary Reports none; Denies abscess or rash Neurologic Neurologic: Reports none; Denies abnormal gait, confusion, focal weakness, frequent falls, headache(s), loss of vision, numbness, paresthesias, radicular pain, vertigo or weakness Psychiatric Psychiatric: Reports systems reviewed and no addt'l complaints, except as documented and none; Denies behavioral changes, confusion, difficulty concentrating, hallucinations, suicidal ideation, tactile hallucinations or visual hallucinations Endocrine Endocrinology: Denies none, cold intolerance, excessive sweating, fatigue or heat intolerance Hematologic/Lymphatic Hematologic/Lymphatic: Reports none; Denies anemia, easy bleeding or easy bruising Allergic/Immunologic Allergic/Immunologic ED: Denies as per HPI, none, lip swelling, mouth swelling, throat swelling, tongue swelling or hives EXAM Physical Exam Const Vital Signs: 06/09/21 11:05 06/09/21 11:11 06/09/21 11:31 Temperature 97.3 F L 97.9 F Temperature Source Temporal Temporal Pulse Rate 76 73 Respiratory Rate 24 H 30 H Respiratory Effort Non-Labored Short of Breath Accessory Muscle Use Respiratory Depth Shallow Respiratory Pattern Tachypnea Blood Pressure 88/63 L 87/61 L Blood Pressure Mean 71 69 Pulse Ox 93 96 Oxygen Delivery Method Room Air Non-Rebreather Non-Rebreather Oxygen Flow Rate (L/min) 15 Fraction of Inspired Oxygen (FIO2) 100 Positive well nourished and well developed General Appearance ED: well developed and NAD HEENT Reports TM's clear and moist mucous membranes normocephalic and atraumatic; Negative for trauma or tenderness Tympanic Membrane ED: Yes TM's clear Eyes PERRL and EOMs intact bilaterally General Eye ED: Negative for pale conjunctiva or scleral icterus Neck no lymphadenopathy, supple and no JVD General: Negative for tenderness Chest Wall inspection of chest normal and palpation of chest normal Chest: Negative for tenderness Resp normal respiratory effort and clear to auscultation bilaterally Effort and Inspection: Negative for respiratory distress or pain with movement Auscultation: Negative for rhonchi, wheezes or diminished lung sounds Cardio regular rate, regular rhythm, S1 normal heart sound, S2 normal heart sound and no murmurs Peripheral Pulses: pulses 2+ throughout GI normal to inspection, nondistended, normoactive bowel sounds, soft to palpation, non-tender, non-distended and no masses Back/Spine no CVA tenderness and no thoracic nor lumbar tenderness Extremity normal to inspection General Extremety ED: Negative for edema General Extremity: Negative for edema Neuro oriented x3, CN's II-XII intact bilaterally, no sensory deficits noted and gait normal Sensorium / Orientation: awake, alert, oriented to person, oriented to place and oriented to time Motor Exam: strength 5/5 throughout and strength abnormal Psych mental status grossly normal Skin no rashes or lesions noted and no wounds MDM MDM MDM Narrative Medical decision making narrative: IV line established on arrival. Patient was given normal saline fluid boluses. Patient was placed on nasal cannula O2. Case will be discussed with hospitalist evaluate patient for admission for Covid pneumonia with hypoxemia Lab Data Attestation: I reviewed the patient's lab results. Labs: Laboratory Results - last 24 hr 06/09/21 06/09/21 06/09/21 11:30 11:30 11:30 WBC 3.2 L RBC 4.57 L Hgb 14.8 Hct 42.5 MCV 93.0 MCH 32.4 H MCHC 34.8 RDW Std Deviation 49.3 H RDW Coeff of Annelise 14.5 Plt Count 137 L MPV 9.3 Immature Gran % (Auto) 1.900 H Neut % (Auto) 84.2 H Lymph % (Auto) 8.5 L [place] % (Auto) 5.4 Eos % (Auto) 0.0 Baso % (Auto) 0.0 Absolute Neuts (auto) 2.7 Absolute Lymphs (auto) 0.27 L Nucleated RBC % 0 Diff Path Review May foll Platelet Estimate SLT DEC RBC Morphology NORM C+C Sodium 135 L Potassium 3.7 Chloride 102 Carbon Dioxide 24.0 Anion Gap 9 BUN 10 Creatinine 0.75 Estim Creat Clear Calc 105.29 Est GFR (MDRD) Af Amer 143 Est GFR (MDRD) Non-Af 118 BUN/Creatinine Ratio 13.4 Glucose 109 H Lactic Acid 1.4 Calcium 7.9 L Troponin I High Sens 58 Radiography Chest X-Ray - ED: 1 View Diagnostic Testing: Radiology Impression Chest X-Ray 06/09/21 11:18 IMPRESSION: Multifocal pneumonia. Slightly worse than prior study Electronically Signed: Ban An MD at 12:19 EDT Tel , Service support , 1 view chest x-ray obtained interpreted by myself as bilateral infiltrates. Radiology in agreement. EKG Initial EKG: Attestation: I personally reviewed and interpreted this EKG as follows: Comments: Sinus rhythm with a ventricular rate 70 bpm with Discharge Plan Triage Chief Complaint: Shortness of Breath ED Provider: Cassy Obregon Dx/Rx/DC Orders Clinical Impression: Pneumonia due to COVID-19 virus, Hypoxemia, Acute hypotension, Weakness Prescriptions: No Action levothyroxine 88 mcg tablet 88 mcg PO DAILY RF: 0 simvastatin 20 mg tablet 20 mg PO DAILY RF: 0 bupropion HCl 150 mg tablet extended release 24 hr 150 mg PO DAILY RF: 0 cholecalciferol (vitamin D3) [Vitamin D3] 50 mcg (2,000 unit) Tablet 50 mcg PO DAILY RF: 0 tamsulosin [Flomax] 0.4 mg capsule 0.4 mg PO DAILY 30 Days Qty: 30 RF: 0 cefdinir 300 mg capsule 300 mg PO BID 5 Days Qty: 10 RF: 0 Primary Care Provider: Sunday Mcclelland Referrals: Sunday Mcclelland MD [Primary Care Provider] - Disposition Disposition: Acute Care Hospital [facility]
[2021-06-09] MEDS: 0.9% Normal Saline 1,000 ML 150 ML IV (11:30)
[2021-06-09 11:39] LABS: Absolute Lymphocyte Count 0.27 X10^3/uL (0.83-4.51); Absolute Neutrophil Count 2.7 X10^3/uL (2.0-7.7); Hematocrit 42.5 % (40-54); Hemoglobin 14.8 g/dL (13.0-16.5); Lymphocyte # 0.27 X10^3/ul (0.83-4.51); Lymphocyte % 8.5 % (19-41); Mean Corp Hgb Conc 34.8 g/dL (32-36); Mean Corpuscular Hgb 32.4 pg (27.0-32.0); Mean Platelet Vol. 9.3 fl (6.2-12.0); Monocyte# 0.17 X10^3/uL; Monocyte% 5.4 % (0-10); NRBC Flagged by Analyzer 0 % (0-5); Neutrophil # 2.67 X10^3/uL (2.7-7.7); Neutrophil % 84.2 % (47-70); POSITIVE DIFFERENTIAL YES; Platelet Count 137 K/mm3 (150-450); RBC Distribution Width CV 14.5 % (11.6-14.6); RBC Distribution Width SD 49.3 fl (35.1-43.9); Red Blood Count 4.57 M/mm3 (4.6-6.2); White Blood Count 3.2 K/mm3 (4.4-11.0)
[2021-06-09 11:43] LABS: Differential Indicated SCAN CRITERIA MET
[2021-06-09 11:56] LABS: BUN 10 mg/dL (7-18); BUN/Creat Ratio 13.4 RATIO (10-20); Calcium,Total 7.9 mg/dL (8.5-10.1); Chloride 102 mmol/L (98-107); Creatinine, Serum 0.75 mg/dL (0.70-1.30); EST Glomerular Filtration Rate 118 mL/min (>60); Est Glom Filt Rate - Afr Amer 143 mL/min (>60); Estimated Creatinine Clearance 105.29 ml/min; Glucose 109 mg/dL (74-106); Potassium 3.7 mmol/L (3.5-5.1); Sodium Level 135 mmol/L (136-145); Troponin-I HS 58 pg/mL (3.0-78.0)
[2021-06-09 11:57] LABS: Anion Gap 9 (5-15)
[2021-06-09 12:04] LABS: Platelet Estimate SLT DEC (ADEQ); Red Cell Morphology NORM C+C NORMAL (NORM C&C)
[2021-06-09 12:17] LABS: Lactic Acid 1.4 mmol/L (0.4-1.9)
[2021-06-09] MEDS: dexAMETHasone 4 MG Tablet 6 MG PO (12:48)
[2021-06-09] MEDS: Acetaminophen 325 MG Tablet 650 MG PO (14:28)
--- NOTE | 2021-06-09 14:28 | PCM.HP.STD ---
HPI - General General Date of Admission: 06/09/21 HPI Narrative RAMYA GUILLERMO, is a 50 M with Down syndrome who presents with shortness of breath, exertional dyspnea and feeling unwell, generalized fatigue and malaise for the last several days. Presented to the hospital with similar symptoms a few days earlier and was found to be hypotensive and to have bilateral lung infiltrates on chest x-ray. Was diagnosed with COVID-19 infection at that time. Patient has not received vaccine. [facility] Medical History (Updated 06/09/21 @ 14:[address] August Schmitz MD) Congenital heart disease Stroke, hemorrhagic Home Medications bupropion HCl 150 mg PO DAILY 06/05/21 [History Last Taken Unknown] cholecalciferol (vitamin D3) [Vitamin D3] 50 mcg PO DAILY 06/05/21 [History Last Taken Unknown] levothyroxine 88 mcg PO DAILY 06/05/21 [History Last Taken Unknown] simvastatin 20 mg PO DAILY 06/05/21 [History Last Taken Unknown] cefdinir 300 mg PO BID 5 Days #10 cap 06/06/21 [Rx Last Taken Unknown] tamsulosin [Flomax] 0.4 mg PO DAILY 30 Days #30 cap 06/06/21 [Rx Last Taken Unknown] Allergy/AdvReac Type Severity Reaction Status Date / Time No Known Allergies Allergy Verified 06/09/21 11:08 Family History (Updated 06/06/21 @ 07:[address] Laila Bergman MD) Father No problems noted. Mother No problems noted. Surgical History Hx of cholecystectomy S/P VSD repair Social History (Updated 06/06/21 @ 07:[address] Laila Bergman MD) household members: family Smoking Status: Never smoker alcohol intake: never substance use type: does not use ROS ROS Narrative Patient has Down's with significant intellectual difficulties. Unable to provide much if any of a review of systems. Limited review of systems from the parents. Vital Signs Vital Signs Vital Signs: 06/09/21 11:05 06/09/21 11:11 06/09/21 11:31 Temperature 36.3 C L 36.6 C Temperature Source Temporal Temporal Pulse Rate 76 73 Respiratory Rate 24 H 30 H Respiratory Effort Non-Labored Short of Breath Accessory Muscle Use Respiratory Depth Shallow Respiratory Pattern Tachypnea Blood Pressure 88/63 L 87/61 L Blood Pressure Mean 71 69 Pulse Ox 93 96 Oxygen Delivery Method Room Air Non-Rebreather Non-Rebreather Oxygen Flow Rate (L/min) 15 Fraction of Inspired Oxygen (FIO2) 100 06/09/21 12:54 06/09/21 13:37 Temperature 36.6 C 37.0 C Temperature Source Temporal Temporal Pulse Rate 72 79 Respiratory Rate 22 H 30 H Respiratory Effort Respiratory Depth Respiratory Pattern Blood Pressure 87/63 L 97/66 Blood Pressure Mean 71 76 Pulse Ox 94 96 Oxygen Delivery Method Nasal Cannula Nasal Cannula Oxygen Flow Rate (L/min) 6 6 Fraction of Inspired Oxygen (FIO2) Weight Weight: 61.8 kg Body Mass Index (BMI) 27.5 Physical Exam Narrative General. Lung man, Down syndrome, ill-appearing, anxious appearing. HEENT. Oral mucosa slightly dry Neck. Supple. Heart. First and second heart sounds heard no murmurs. Lungs. Harsh breath sounds but otherwise fairly clear. Abdomen. Full, moves with respiration. Nontender. No masses felt. Extremities. No pedal edema. 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 Conscious and alert. Cranial nerves II through XII grossly intact. Skin. No ecchymosis. Results Lab / Micro Data Result Diagrams: 06/09/21 11:30 06/09/21 11:30 Labs: Laboratory Results - last 24 hr 06/09/21 11:30: WBC 3.2 L, RBC 4.57 L, Hgb 14.8, Hct 42.5, MCV 93.0, MCH 32.4 H, MCHC 34.8, RDW Std Deviation 49.3 H, RDW Coeff of Annelise 14.5, Plt Count 137 L, MPV 9.3, Immature Gran % (Auto) 1.900 H, Neut % (Auto) 84.2 H, Lymph % (Auto) 8.5 L, [place] % (Auto) 5.4, Eos % (Auto) 0.0, Baso % (Auto) 0.0, Absolute Neuts (auto) 2.7, Absolute Lymphs (auto) 0.27 L, Nucleated RBC % 0, Diff Path Review May , Platelet Estimate SLT DEC, RBC Morphology NORM C+C 06/09/21 11:30: Sodium 135 L, Potassium 3.7, Chloride 102, Carbon Dioxide 24.0, Anion Gap 9, BUN 10, Creatinine 0.75, Estim Creat Clear Calc 105.29, Est GFR (MDRD) Af Amer 143, Est GFR (MDRD) Non-Af 118, BUN/Creatinine Ratio 13.4, Glucose 109 H, Calcium 7.9 L, Troponin I High Sens 58 06/09/21 11:30: Lactic Acid 1.4 Radiology Impression Chest X-Ray 06/09/21 11:18 IMPRESSION: Multifocal pneumonia. Slightly worse than prior study Electronically Signed: Ban An MD at 12:19 EDT Tel , Service support , Assessment & Plan Assessment/Plan (1) Pneumonia due to COVID-19 virus: PLAN: Start treatment with remdesivir and dexamethasone. Other supportive care including oxygen supplementation. Monitor CMP, check ferritin, LDH and D-dimer. (2) Acute respiratory failure with hypoxia: PLAN: Secondary to COVID-19 pneumonia. Supplemental oxygen. (3) Acute hypotension: PLAN: Most likely secondary to severe to viral infection and volume depletion from dehydration. Continue fluid resuscitation. Charges/Coding Visit Charges Inpatient E&M: 75304 Init Hosp L3
--- NOTE | 2021-06-09 14:56 | NURSING ---
Pt aware that mother is going home to get a few things and will be back to room.
[2021-06-09] MEDS: KCL 20MEQ in 0.9% NS 20 MEQ/1,000 ML IV.SOLN. 125 MEQ IV ×2 (15:40→22:11)
[2021-06-09] MEDS: Remdesivir 200 MG IV x1 (Inital Dose)-All Patients 125 MG IV (16:57)
[2021-06-09] MEDS: Atorvastatin Calcium 10 MG Tablet PO (22:11)
--- NOTE | 2021-06-09 23:32 | NURSING ---
Patient able to lay in right side from approx 10:15 to 10:45.
--- NOTE | 2021-06-09 23:37 | PCS.PANDOC ---
PANDEMIC DOCUMENTATION INITIATED: Date: 05/07/2021 Time: 190
[2021-06-10] VITALS (26 sets, daily range): BP systolic 80–101; BP diastolic 50–66; PULSE 52–86; RESP 20–60; TEMP 36.3–36.9; O2SAT 74–100
--- NOTE | 2021-06-10 00:55 | NURSING ---
Nonrebreather applied at this time- SP02 87%
[2021-06-10] MEDS: Levothyroxine 88 MCG Tablet PO (05:18)
--- NOTE | 2021-06-10 05:44 | NURSING ---
RT notified that patient's SP02 dropped even when lab was drawing blood. When this RN called into room and spoke with patients mom about how patient appered and how he was doing after lab draw per mom he's breathing heavier, Sp02 was at 84% on NRB. This RN reported findings to the RT. Per RT she stated she would let dayshift know and they can talk with the hospitalists. This RN will continue to monitor. gas systems worker aware of patients respiratory status.
[2021-06-10] MEDS: KCL 20MEQ in 0.9% NS 20 MEQ/1,000 ML IV.SOLN. 125 MEQ IV ×2 (06:21→14:31)
[2021-06-10 06:25] LABS: Absolute Lymphocyte Count 0.27 X10^3/uL (0.83-4.51); Absolute Neutrophil Count 2.5 X10^3/uL (2.0-7.7); Hematocrit 40.4 % (40-54); Hemoglobin 13.8 g/dL (13.0-16.5); Lymphocyte # 0.27 X10^3/ul (0.83-4.51); Lymphocyte % 8.7 % (19-41); Mean Corp Hgb Conc 34.2 g/dL (32-36); Mean Corpuscular Hgb 32.1 pg (27.0-32.0); Mean Platelet Vol. 9.7 fl (6.2-12.0); Monocyte# 0.23 X10^3/uL; Monocyte% 7.4 % (0-10); NRBC Flagged by Analyzer 0 % (0-5); Neutrophil # 2.51 X10^3/uL (2.7-7.7); POSITIVE DIFFERENTIAL YES; POSITIVE MORPHOLOGY YES; Platelet Count 150 K/mm3 (150-450); RBC Distribution Width CV 14.7 % (11.6-14.6); RBC Distribution Width SD 51.3 fl (35.1-43.9); White Blood Count 3.1 K/mm3 (4.4-11.0)
[2021-06-10 06:39] LABS: Differential Indicated SCAN CRITERIA MET
[2021-06-10 06:55] LABS: Anisocytosis 1+
[2021-06-10 07:01] LABS: International Normalized Ratio 1.1; Prothrombin Time (Protime)PT. 13.5 SECONDS (11.7-14.9)
[2021-06-10 07:16] LABS: D-Dimer Quantitative (DVT/PE) 1.62 FEU/ug/m (0.27-0.49)
[2021-06-10 08:13] LABS: ALB/GLOB Ratio 0.7 RATIO (0.9-2.4); AST(SGOT) 177 U/L (15-37); Alanine Aminotransfer ALT/SGPT 163 U/L (16-61); Albumin, Serum 2.2 g/dL (3.2-5.0); Alkaline Phosphatase 132 U/L (45-117); Anion Gap 6 (5-15); BUN 12 mg/dL (7-18); BUN/Creat Ratio 20.2 RATIO (10-20); Calcium,Total 7.4 mg/dL (8.5-10.1); Chloride 110 mmol/L (98-107); EST Glomerular Filtration Rate 154 mL/min (>60); Est Glom Filt Rate - Afr Amer 186 mL/min (>60); Estimated Creatinine Clearance 126.71 ml/min; Ferritin 4574 ng/mL (26-388); Globulin 3.3 g/dL (2.2-4.2); Glucose 101 mg/dL (74-106); LDH 984 U/L (87-241); Potassium 4.3 mmol/L (3.5-5.1); Protein, Total 5.5 g/dL (6.4-8.2); Sodium Level 137 mmol/L (136-145)
[2021-06-10] MEDS: buPROPion (XL) 150 MG TABLET.XL PO (10:45)
[2021-06-10] MEDS: dexAMETHasone 10 MG/ML Vial 6 MG IV (10:45)
[2021-06-10] MEDS: Tamsulosin HCl 0.4 MG Capsule PO (10:45)
--- NOTE | 2021-06-10 13:06 | EX.PCM.CONCC ---
Assessment & Plan Assessment/Plan (1) Acute respiratory failure with hypoxia: (2) Pneumonia due to COVID-19 virus: (3) Acute hypotension: (4) Dehydration: PLAN: RECOMMENDATIONS: 1. Consider ID consult for NATALIIA therapy 2. Continue remdesivir and Decadron 3. Monitor blood sugars. Insulin if indicated 4. Confirmed full CODE STATUS 5. Avoid further fluid boluses if possible 6. Administer diuretics as patient tolerates 7. Consider prone positioning if possible IMPRESSIONS: 1. Acute hypoxic respiratory failure secondary to COVID-19 Patient with significant progression in oxygen demands over the last 24 hours. This may be secondary to fluid boluses received initially or represent progression of disease. Would hold on further fluid bolusing. Patient is appropriate for remdesivir and Decadron. Would consider an infectious disease consult for possible NATALIIA therapy. Prone positioning would be optimal, but given mental status this may not be an option. Family does state that full measures should be considered. 2. History of VSD/Down syndrome Complicates care, management, recovery and prognosis. Mother at the bedside is helpful. Patient will be at high risk for delirium, so recommend nursing protocol. Avoid benzodiazepines HPI Consult Data Date of Consult: 06/10/21 HPI Narrative HPI Narrative: RAMYA GUILLERMO is a 50 M, with past medical history listed below and Down syndrome, who presents to [facility] on 06/09/2021 secondary to generalized weakness, hypotension and hypoxemia. EMS was reportedly called after the patient had several syncopal episodes and hypotension. Patient was diagnosed with COVID-19 on June 05, but reportedly has been symptomatic for approximately 8 days. Parents have checked his saturations and found 70 to 80% on room air. Both parents have reportedly had Covid in the distant past. Patient does has have a history of a ventricular septal defect repair, but does not carry any respiratory diagnoses such as asthma. In the ER, patient was afebrile, but tachypneic to 30 breaths/min. Patient was requiring a nonrebreather to maintain saturations and blood pressures were marginal 87/61. Patient did receive saline boluses with improvement in blood pressure. Patient's laboratory work-up showed a white blood cell count of 3.2, sodium 135, creatinine of 0.75 and a lactate of 1.4. Chest x-ray showed worsening bilateral infiltrates, so the patient was admitted to the floor for further evaluation. Since being on the floor, patient's oxygenation status has worsened. Patient is now requiring Airvo 75% to maintain saturations. Patient's mother believes he is improved from presentation. Patient was relatively nonverbal and unable to answer any questions. Patient's mother reports no diarrhea, dysuria or focal neurologic deficits. Patient had had some syncopal episodes at various times over the last week. Patient reportedly had a syncopal episode while attending a , but recovered spontaneously and was able to go home with the family. Shortly thereafter, several people were diagnosed with COVID-19. Patient has not been immunized. Per the mother, review of systems otherwise negative from a constitutional, HEENT, respiratory, cardiovascular, GI, genitourinary, musculoskeletal, skin, neurologic, psychiatric and hematologic system unless stated above. [facility] Medical History (Updated 06/09/21 @ 14:[address] August Schmitz MD) Congenital heart disease Stroke, hemorrhagic Home Medications bupropion HCl 150 mg PO DAILY 06/05/21 [History Last Taken Unknown] cholecalciferol (vitamin D3) [Vitamin D3] 50 mcg PO DAILY 06/05/21 [History Last Taken Unknown] levothyroxine 88 mcg PO DAILY 06/05/21 [History Last Taken Unknown] simvastatin 20 mg PO DAILY 06/05/21 [History Last Taken Unknown] cefdinir 300 mg PO BID 5 Days #10 cap 06/06/21 [Rx Last Taken Unknown] tamsulosin [Flomax] 0.4 mg PO DAILY 30 Days #30 cap 06/06/21 [Rx Last Taken Unknown] Allergy/AdvReac Type Severity Reaction Status Date / Time No Known Allergies Allergy Verified 06/09/21 11:08 Family History (Updated 06/06/21 @ 07:[address] Laila Bergman MD) Father No problems noted. Mother No problems noted. Surgical History Hx of cholecystectomy S/P VSD repair Social History (Updated 06/06/21 @ 07:[address] Laila Bergman MD) household members: family Smoking Status: Never smoker alcohol intake: never substance use type: does not use ROS ROS Narrative See HPI Physical Exam Const Constitutional Narrative: Down's appearance. On Airvo. Opens eyes to voice General Appearance: cooperative and lethargic HEENT head/scalp atraumatic, EAC's normal and TM's normal bilaterally HEENT Narrative: Microcephalic Eyes PERRL and EOMs intact bilaterally Neck no lymphadenopathy, supple and no JVD General: trachea midline Lymph Lymphatic: no lymphadenopathy noted, lymphedema and lymphadenopathy Resp Effort and Inspection: tachypneic and respiratory distress; Negative for retractions or uses accessory muscles Auscultation: diminished lung sounds; Negative for rales, rhonchi or wheezes Cardio regular rate, regular rhythm, S1 normal heart sound, S2 normal heart sound, no murmurs, no rub, no gallops and peripheral pulses 2+ throughout GI soft to palpation, non-tender and non-distended Extremity normal capillary refill and no clubbing, cyanosis or edema General Extremity: no tenderness to palpation of joints or extremities Skin no rashes or lesions noted General Skin Exam: turgor normal Lesions: no lesions Rashes: no rashes Neuro CN's II-XII intact bilaterally Speech: speech normal Motor Exam: strength 5/5 throughout; Negative for general weakness Psych thought process normal, cooperative and affect normal Appearance: appropriate Lab / Micro Data Result Diagrams: 06/10/21 05:35 06/10/21 05:35 Labs: Laboratory Results - last 24 hr 06/10/21 05:35: WBC 3.1 L, RBC 4.30 L, Hgb 13.8, Hct 40.4, MCV 94.0, MCH 32.1 H, MCHC 34.2, RDW Std Deviation 51.3 H, RDW Coeff of Annelise 14.7 H, Plt Count 150, MPV 9.7, Immature Gran % (Auto) 2.900 H, Neut % (Auto) 81.0 H, Lymph % (Auto) 8.7 L, [place] % (Auto) 7.4, Eos % (Auto) 0.0, Baso % (Auto) 0.0, Absolute Neuts (auto) 2.5, Absolute Lymphs (auto) 0.27 L, Nucleated RBC % 0, Diff Path Review May foll, Anisocytosis 1+ 06/10/21 05:35: PT 13.5, INR 1.1, D-Dimer Quant (PE/DVT) 1.62 H* 06/10/21 05:35: Sodium 137, Potassium 4.3, Chloride 110 H, Carbon Dioxide 21.0, Anion Gap 6, BUN 12, Creatinine 0.60 L, Estim Creat Clear Calc 126.71, Est GFR (MDRD) Af Amer 186, Est GFR (MDRD) Non-Af 154, BUN/Creatinine Ratio 20.2 H, Glucose 101, Calcium 7.4 L, Ferritin 4574 H, Total Bilirubin 0.50, AST 177 H, ALT 163 H, Alkaline Phosphatase 132 H, Lactate Dehydrogenase 984 H, C-React Prot Ext Range 26.60 H, Total Protein 5.5 L, Albumin 2.2 L, Globulin 3.3, Albumin/Globulin Ratio 0.7 L Charges/Coding Visit Charges Inpatient E&M: 73486 Init Hosp L3
--- NOTE | 2021-06-10 14:00 | PCM.PN.HOSP ---
Subjective Subjective The date of this dictation should be: 06/10/2021-patient was seen and examined today, he is on BiPAP, he is asleep and appears comfortable. I asked pulmonary medicine to see the patient today. I talked briefly with the patient's mother today. Objective Data Objective Data Vital Signs: Vital Signs Temp Pulse Resp BP Pulse Ox 97.3 F L 61 24 H 92/58 L 96 06/11/21 18:38 06/11/21 18:38 06/11/21 18:38 06/11/21 18:38 06/11/21 18:38 Oxygen Flow Rate (L/min) 60 Oxygen Delivery Method Airvo Weight: 59.5 kg Body Mass Index (BMI) 26.4 Intake & Output: Intake and Output for Last 24 Hours 06/09/21 06/10/21 06/11/21 23:59 23:59 23:59 Intake Total 2675.0 / 2675.0 2318.75 / 2418.75 1128.13 / 1128.13 Output Total 1950 / 2150 1200 / 1200 Balance 2675.0 / 2675.0 368.75 / 268.75 -71.87 / -71.87 Lab / Micro Data Result Diagrams: 06/10/21 05:35 06/10/21 05:35 Labs: Laboratory Results - last 24 hr 06/09/21 11:30: Diff Path Review Reviewed 06/10/21 05:35: Diff Path Review Reviewed Micro: Microbiology 06/09/21 11:35 Blood Culture (Wb) - Arm Left Blood Culture - Preliminary No growth in 48 hours. 06/09/21 11:30 Blood Culture (Wb) - Left Hand Blood Culture - Preliminary No growth in 48 hours. Physical Exam Const no apparent distress and healthy appearing Constitutional Narrative: Patient has the appearance of Down's syndrome General Appearance: cooperative, well kempt and well developed Orientation / Consciousness: awake, oriented to person, oriented to place, oriented to time and lethargic HEENT normocephalic, head/scalp atraumatic and moist oral mucous membranes Head and Scalp: normocephalic Eyes PERRL, EOMs intact bilaterally and conjunctivae normal Neck nuchal rigidity, supple, no JVD, thyroid normal and no carotid bruits General: trachea midline Resp normal respiratory effort, no retractions, no use of accessory muscles and clear to auscultation bilaterally Auscultation: Negative for rales, rhonchi or wheezes Cardio regular rate, regular rhythm, S1 normal heart sound, S2 normal heart sound, no murmurs, no rub and no gallops GI normal to inspection, nondistended, normoactive bowel sounds, soft to palpation, non-tender and non-distended Extremity no clubbing, cyanosis or edema Skin no rashes or lesions noted General Skin Exam: no breakdown Neuro CN's II-XII intact bilaterally and no focal motor deficits Psych thought process normal Psych Narrative: Patient is appear anxious or depressed. Assessment & Plan Assessment/Plan (1) Pneumonia due to COVID-19 virus: PLAN: 1. COVID-19 pneumonia-continue present medications, pulmonary medicine will see patient #2 acute hypoxic respiratory failure secondary to #1 #3 hypotension #4 Down syndrome #5 BPH Charges/Coding Visit Charges Inpatient E&M: 12080 Subs Hosp L2
[2021-06-10] MEDS: Enoxaparin 40 MG/0.4 ML Syringe SC (17:44)
[2021-06-10] MEDS: Atorvastatin Calcium 10 MG Tablet PO (21:21)
[2021-06-11] VITALS (18 sets, daily range): BP systolic 82–97; BP diastolic 50–66; PULSE 53–71; RESP 22–32; TEMP 36.3–36.9; O2SAT 87–97
[2021-06-11] MEDS: Levothyroxine 88 MCG Tablet PO (05:14)
[2021-06-11] MEDS: dexAMETHasone 10 MG/ML Vial 6 MG IV (08:49)
[2021-06-11] MEDS: Tamsulosin HCl 0.4 MG Capsule PO (08:49)
[2021-06-11] MEDS: Enoxaparin 40 MG/0.4 ML Syringe SC (08:50)
--- NOTE | 2021-06-11 12:46 | PCS.PANDOC ---
PANDEMIC DOCUMENTATION INITIATED: Date: 05/07/2021 Time: 190
[2021-06-11 12:48] LABS: Pathologist Review Reviewed
[2021-06-11 12:55] LABS: Pathologist Review Reviewed
--- NOTE | 2021-06-11 15:40 | CASEMGMT ---
[facility] Readmission Note Previous Admission: 06/05/21-06/06/21 Diagnosis: syncope, COVID 19 DC Disposition: Home with family, no therapy recommended and pt did not qualify for home O2. Current Admission Diagnosis: hypoxia Pt presented to ER from home with weakness. RN CM in to pt room, pt mother at bedside. Pt lying in bed in no distress with Airvo on. Pt mother states pt went home and became weak but did not have any syncopal event. Pt and mother reports pt was taking his medications correctly. Pt has an appt with and on June 21. Discussed with patient and mother local in [facility]. Pt mother chose [facility]. Pt and mother do not anticipate any further needs upon dc. [facility] to follow. Pt mother and father have had COVID 19 and do not plan to quarantine from pt. Plan: DC home, follow for home O2.
--- NOTE | 2021-06-11 18:43 | PN.HOSP_ITS ---
Subjective Subjective Patient was seen and examined today, he is alert and he appears comfortable, he is on Airvo. Patient's mother is in the room and I talked her briefly about some of his medications, patient was decreasing his Wellbutrin as an outpatient to go off this medication, patient's mother is okay with me stopping the medica tion at this time. Patient's mother was concerned that he was not emptying his bladder properly, he was placed on Flomax recently according to her, I have elected to increase the dosage to 0.8 mg daily. Objective Data Objective Data Vital Signs: Vital Signs Temp Pulse Resp BP Pulse Ox 97.3 F L 61 24 H 92/58 L 96 06/11/21 18:38 06/11/21 18:38 06/11/21 18:38 06/11/21 18:38 06/11/21 18:38 Oxygen Flow Rate (L/min) 60 Oxygen Delivery Method Airvo Weight: 59.5 kg Body Mass Index (BMI) 26.4 Intake & Output: Intake and Output for Last 24 Hours 06/09/21 06/10/21 06/11/21 23:59 23:59 23:59 Intake Total 2675.0 / 2675.0 2318.75 / 2418.75 1128.13 / 1128.13 Output Total 1950 / 2150 1200 / 1200 Balance 2675.0 / 2675.0 368.75 / 268.75 -71.87 / -71.87 Lab / Micro Data Result Diagrams: 06/10/21 05:35 06/10/21 05:35 Labs: Laboratory Results - last 24 hr 06/09/21 11:30: Diff Path Review Reviewed 06/10/21 05:35: Diff Path Review Reviewed Micro: Microbiology 06/09/21 11:35 Blood Culture (Wb) - Arm Left Blood Culture - Preliminary No growth in 48 hours. 06/09/21 11:30 Blood Culture (Wb) - Left Hand Blood Culture - Preliminary No growth in 48 hours. Physical Exam Const alert and no apparent distress Constitutional Narrative: Patient appears to have Down's syndrome appearance General Appearance: cooperative, well kempt and well developed Orientation / Consciousness: awake, oriented to person, oriented to place and oriented to time HEENT normocephalic, head/scalp atraumatic and moist oral mucous membranes Head and Scalp: normocephalic Eyes PERRL, EOMs intact bilaterally and conjunctivae normal Neck nuchal rigidity, supple, no JVD, thyroid normal and no carotid bruits General: trachea midline Resp normal respiratory effort, no retractions, no use of accessory muscles and clear to auscultation bilaterally Auscultation: Negative for rales, rhonchi or wheezes Cardio regular rate, regular rhythm, S1 normal heart sound, S2 normal heart sound, no murmurs, no rub and no gallops GI normal to inspection, nondistended, normoactive bowel sounds, soft to palpation, non-tender and non-distended Extremity no clubbing, cyanosis or edema Skin no rashes or lesions noted General Skin Exam: no breakdown Neuro CN's II-XII intact bilaterally, no focal motor deficits and no sensory deficits noted Sensorium / Orientation: awake and alert Psych thought process normal Psych Narrative: Patient does not appear anxious or depressed Assessment & Plan Assessment/Plan (1) Pneumonia due to COVID-19 virus: PLAN: 1. COVID-19 pneumonia, continue dexamethasone remdesivir, I will have infectious diseases see the patient tomorrow. #2 acute hypoxic respiratory failure secondary to #1-patient's oxygen saturation will be monitored #3 BPH-Flomax will be increased to 0.8 mg daily #4 Down syndrome Charges/Coding Visit Charges Inpatient E&M: 61120 Subs Hosp L2
[2021-06-11] MEDS: MELATONIN 10 MG TABLET PO (22:13)
[2021-06-11] MEDS: Atorvastatin Calcium 10 MG Tablet PO (22:13)
--- NOTE | 2021-06-11 23:57 | CPS ---
AirVo increased to 93% due to pt desaturating while asleep
[2021-06-12] VITALS (19 sets, daily range): BP systolic 84–101; BP diastolic 53–69; PULSE 54–86; RESP 20–28; TEMP 36.1–36.7; O2SAT 88–99
--- NOTE | 2021-06-12 00:20 | CPS ---
added non rebreather mask to AirVo, d/t oxygen desats during sleeping.
[2021-06-12] MEDS: Levothyroxine 88 MCG Tablet PO (06:08)
[2021-06-12] MEDS: dexAMETHasone 10 MG/ML Vial 6 MG IV (09:03)
[2021-06-12] MEDS: Tamsulosin HCl 0.4 MG Capsule 0.8 MG PO (09:04)
[2021-06-12] MEDS: Enoxaparin 40 MG/0.4 ML Syringe SC (09:05)
--- NOTE | 2021-06-12 10:41 | CON.PCM.ID_ITS ---
Assessment & Plan Assessment/Plan (1) Acute respiratory failure with hypoxia: (2) Pneumonia due to COVID-19 virus: PLAN: Sx started around 06/06. Unvaccinated. On dex and remdesivir. Will add baricitinib, reviewed EUA with his mother. Ordered daily lab monitoring for remdesivir and danette. Isolate for 20 days. Recommended his mom get tested and for them all to get vaccine once he is past this acute illness. Will follow, thank you HPI Consult Data Date of Consult: 06/12/21 HPI Narrative HPI Narrative: RAMYA GUILLERMO, is a 50 M who presented 06/09 with several days not feeling well, cough, dyspnea. He and family unvaccinated. Mom with covid in November, no symptoms, has not been tested. She is at bedside and provided history. Admitted, started on dex, remdesivir. Worsening O2. Full ROS performed and neg except as noted above. [facility] Medical History Congenital heart disease Stroke, hemorrhagic Home Medications bupropion HCl 150 mg PO DAILY 06/05/21 [History Last Taken Unknown] cholecalciferol (vitamin D3) [Vitamin D3] 50 mcg PO DAILY 06/05/21 [History Last Taken Unknown] levothyroxine 88 mcg PO DAILY 06/05/21 [History Last Taken Unknown] simvastatin 20 mg PO DAILY 06/05/21 [History Last Taken Unknown] cefdinir 300 mg PO BID 5 Days #10 cap 06/06/21 [Rx Last Taken Unknown] tamsulosin [Flomax] 0.4 mg PO DAILY 30 Days #30 cap 06/06/21 [Rx Last Taken Unknown] Allergy/AdvReac Type Severity Reaction Status Date / Time No Known Allergies Allergy Verified 06/09/21 11:08 Family History (Updated 06/06/21 @ 07:[address] Laila Bergman MD) Father No problems noted. Mother No problems noted. Surgical History Hx of cholecystectomy S/P VSD repair Social History (Updated 06/06/21 @ 07:[address] Laila Bergman MD) household members: family Smoking Status: Never smoker alcohol intake: never substance use type: does not use Physical Exam Const no apparent distress General Appearance: cooperative Exam Limitations: other limitations HEENT normocephalic and head/scalp atraumatic Eyes PERRL and EOMs intact bilaterally Neck supple and No nodes Resp Auscultation: diminished lung sounds Cardio regular rate and regular rhythm GI normal to inspection, nondistended, normoactive bowel sounds Extremity no clubbing, cyanosis or edema Skin no rashes or lesions noted Neuro CN's II-XII intact bilaterally Lab / Micro Data Result Diagrams: 06/10/21 05:35 06/10/21 05:35 Labs: Laboratory Results - last 24 hr 06/09/21 11:30: Diff Path Review Reviewed 06/10/21 05:35: Diff Path Review Reviewed Micro: Microbiology 06/09/21 11:35 Blood Culture (Wb) - Arm Left Blood Culture - Preliminary No growth in 48 hours. 06/09/21 11:30 Blood Culture (Wb) - Left Hand Blood Culture - Preliminary No growth in 48 hours.
--- NOTE | 2021-06-12 12:41 | PCM.PN.INT ---
Assessment & Plan Assessment/Plan (1) Acute respiratory failure with hypoxia: (2) Pneumonia due to COVID-19 virus: (3) Acute hypotension: (4) Dehydration: PLAN: RECOMMENDATIONS: 1. Continue heated high flow oxygen and wean FiO2 to maintain saturations at or above 90%. 2. Continue remdesivir to complete 5-day treatment course. Continue to monitor liver and renal function. 3. Continue Decadron to complete 10-day treatment course. 4. Continue baricitinib per ID recommendations. 5. Continue Lovenox. IMPRESSIONS: 1. Acute hypoxic respiratory failure secondary to COVID-19 Plan to continue supportive measures including heated high flow oxygen to maintain saturations at or above 90%. The patient will be continued on remdesivir and Decadron to complete treatment courses. In addition, there is setting it will be continued per ID recommendations. Continue Lovenox twice daily. Intermittent use of diuretics can be utilized to maintain euvolemic state. 2. History of VSD/Down syndrome Complicates care, management, recovery and prognosis. Continue home medications as indicated. This note was generated with [employer] dictation software. It may contain incorrect words, spelling, and punctuation that were not noted in checking the note before signing. Subjective Subjective The patient was seen and examined at the bedside this morning. Events from the last 24 hours have been reviewed. The patient is currently afebrile, hemodynamically stable and maintaining appropriate oxygen saturations on Airvo heated high flow with an FiO2 requirement of 90% and flow rate of 55 L/min. The patient is currently documented to be overall net +3.6 L for the hospital admission. The patient remains on remdesivir, Decadron, Lovenox and baricitinib. Objective Data Objective Data The patient's most recent lab work, culture data and imaging studies have all been personally reviewed. Rapid coronavirus antigen testing was positive on June 05. Vital Signs: Vital Signs Temp Pulse Resp BP Pulse Ox 97.2 F L 60 22 H 101/69 99 06/12/21 11:34 06/12/21 11:34 06/12/21 11:34 06/12/21 11:34 06/12/21 11:34 Oxygen Flow Rate (L/min) 55 Oxygen Delivery Method Airvo Weight: 59.5 kg Body Mass Index (BMI) 26.4 Intake & Output: Intake and Output for Last 24 Hours 06/10/21 06/11/21 06/12/21 23:59 23:59 23:59 Intake Total 2318.75 / 2418.75 1128.13 / 1128.13 885 / 885 Output Total 1950 / 2150 1200 / 1200 250 / 250 Balance 368.75 / 268.75 -71.87 / -71.87 635 / 635 Lab / Micro Data Attestation: I reviewed the patient's lab results. Result Diagrams: 06/14/21 05:45 06/14/21 05:45 Labs: Laboratory Results - last 24 hr 06/09/21 11:30: Diff Path Review Reviewed 06/10/21 05:35: Diff Path Review Reviewed Micro: Microbiology 06/09/21 11:35 Blood Culture (Wb) - Arm Left Blood Culture - Preliminary No growth in 48 hours. 06/09/21 11:30 Blood Culture (Wb) - Left Hand Blood Culture - Preliminary No growth in 48 hours. Physical Exam Const no apparent distress Constitutional Narrative: MRDD in appearance General Appearance: cooperative HEENT head/scalp atraumatic and moist oral mucous membranes Eyes PERRL and EOMs intact bilaterally Neck supple General: trachea midline Resp Effort and Inspection: tachypneic Auscultation: diminished lung sounds; Negative for rales, rhonchi or wheezes Cardio regular rate and regular rhythm GI normal to inspection, nondistended, normoactive bowel sounds Extremity no clubbing, cyanosis or edema Skin no rashes or lesions noted Neuro no focal motor deficits Psych Mood & Affect: flat affect Charges/Coding Visit Charges Inpatient E&M: 93468 Subs Hosp L3
--- NOTE | 2021-06-12 18:05 | PCM.PN.HOSP ---
Subjective Subjective Patient was seen and examined today, he remains on Airvo, he does not appear in any distress, I talked with his mother who was in the room today. Patient was seen by infectious diseases and they placed him on baricitinib. Objective Data Objective Data Vital Signs: Vital Signs Temp Pulse Resp BP Pulse Ox 98.1 F 59 L 20 H 93/53 L 96 06/12/21 17:48 06/12/21 17:48 06/12/21 17:48 06/12/21 17:48 06/12/21 17:48 Oxygen Flow Rate (L/min) 60 Oxygen Delivery Method Airvo Weight: 59.5 kg Body Mass Index (BMI) 26.4 Intake & Output: Intake and Output for Last 24 Hours 06/10/21 06/11/21 06/12/21 23:59 23:59 23:59 Intake Total 2318.75 / 2418.75 1128.13 / 1128.13 1235 / 1235 Output Total 1950 / 2150 1200 / 1200 800 / 800 Balance 368.75 / 268.75 -71.87 / -71.87 435 / 435 Lab / Micro Data Result Diagrams: 06/10/21 05:35 06/10/21 05:35 Micro: Microbiology 06/09/21 11:35 Blood Culture (Wb) - Arm Left Blood Culture - Preliminary No growth in 48 hours. 06/09/21 11:30 Blood Culture (Wb) - Left Hand Blood Culture - Preliminary No growth in 48 hours. Physical Exam Narrative alert and no apparent distress Constitutional Narrative: Patient appears to have Down's syndrome appearance General Appearance: cooperative, well kempt and well developed Orientation / Consciousness: awake, oriented to person, oriented to place and oriented to time HEENT normocephalic, head/scalp atraumatic and moist oral mucous membranes Head and Scalp: normocephalic Eyes PERRL, EOMs intact bilaterally and conjunctivae normal Neck nuchal rigidity, supple, no JVD, thyroid normal and no carotid bruits General: trachea midline Resp normal respiratory effort, no retractions, no use of accessory muscles and clear to auscultation bilaterally Auscultation: Negative for rales, rhonchi or wheezes Cardio regular rate, regular rhythm, S1 normal heart sound, S2 normal heart sound, no murmurs, no rub and no gallops GI normal to inspection, nondistended, normoactive bowel sounds, soft to palpation, non-tender and non-distended Extremity no clubbing, cyanosis or edema Skin no rashes or lesions noted General Skin Exam: no breakdown Neuro CN's II-XII intact bilaterally, no focal motor deficits and no sensory deficits noted Sensorium / Orientation: awake and alert Psych thought process normal Psych Narrative: Patient does not appear anxious or depressed Assessment & Plan Assessment/Plan (1) Acute respiratory failure with hypoxia: (2) Pneumonia due to COVID-19 virus: PLAN: 1. COVID-19 pneumonia-continue present medications, pulmonary medicine and infectious diseases is seeing the patient #2 acute hypoxic respiratory failure secondary to #1 #3 hypotension #4 Down's syndrome #5 BPH Charges/Coding Visit Charges Inpatient E&M: 63648 Subs Hosp L2
[2021-06-12] MEDS: Acetaminophen 325 MG Tablet 650 MG PO (22:01)
[2021-06-12] MEDS: MELATONIN 10 MG TABLET PO (22:01)
[2021-06-12] MEDS: Atorvastatin Calcium 10 MG Tablet PO (22:05)
[2021-06-13] VITALS (23 sets, daily range): BP systolic 90–106; BP diastolic 56–72; PULSE 53–88; RESP 15–26; TEMP 36.2–36.7; O2SAT 90–98
[2021-06-13] MEDS: Levothyroxine 88 MCG Tablet PO (06:21)
[2021-06-13 07:03] LABS: Hematocrit 43.1 % (40-54); Hemoglobin 14.7 g/dL (13.0-16.5); Mean Corp Hgb Conc 34.1 g/dL (32-36); Mean Corpuscular Volume 93.9 fL (80-94); Mean Platelet Vol. 9.7 fl (6.2-12.0); Platelet Count 198 K/mm3 (150-450); RBC Distribution Width CV 14.2 % (11.6-14.6); RBC Distribution Width SD 49.3 fl (35.1-43.9); Red Blood Count 4.59 M/mm3 (4.6-6.2); White Blood Count 8.4 K/mm3 (4.4-11.0)
[2021-06-13 07:46] LABS: ALB/GLOB Ratio 0.7 RATIO (0.9-2.4); AST(SGOT) 92 U/L (15-37); Alanine Aminotransfer ALT/SGPT 156 U/L (16-61); Albumin, Serum 2.4 g/dL (3.2-5.0); Alkaline Phosphatase 142 U/L (45-117); Anion Gap 6 (5-15); BUN 14 mg/dL (7-18); BUN/Creat Ratio 23.2 RATIO (10-20); Calcium,Total 7.8 mg/dL (8.5-10.1); Chloride 108 mmol/L (98-107); EST Glomerular Filtration Rate 151 mL/min (>60); Est Glom Filt Rate - Afr Amer 183 mL/min (>60); Estimated Creatinine Clearance 126.71 ml/min; Globulin 3.4 g/dL (2.2-4.2); Glucose 135 mg/dL (74-106); Potassium 4.2 mmol/L (3.5-5.1); Protein, Total 5.8 g/dL (6.4-8.2); Sodium Level 137 mmol/L (136-145)
[2021-06-13] MEDS: dexAMETHasone 10 MG/ML Vial 6 MG IV (10:02)
[2021-06-13] MEDS: Enoxaparin 40 MG/0.4 ML Syringe SC (10:05)
[2021-06-13] MEDS: 0.9% Saline Lock 10 ML Syringe IV (10:05)
[2021-06-13] MEDS: Tamsulosin HCl 0.4 MG Capsule 0.8 MG PO (10:05)
--- NOTE | 2021-06-13 18:57 | PCM.PN.HOSP ---
Subjective Subjective Patient was seen and examined today, he does not voice any complaints this examiner of shortness of breath or chest discomfort. Patient appears comfortable and in no distress. Objective Data Objective Data Vital Signs: Vital Signs Temp Pulse Resp BP Pulse Ox 98.0 F 72 22 H 102/68 94 06/13/21 14:58 06/13/21 15:06 06/13/21 15:06 06/13/21 14:58 06/13/21 15:06 Oxygen Flow Rate (L/min) 25 Oxygen Delivery Method Airvo Weight: 59.5 kg Body Mass Index (BMI) 26.4 Intake & Output: Intake and Output for Last 24 Hours 06/11/21 06/12/21 06/13/21 23:59 23:59 23:59 Intake Total 1128.13 / 1128.13 2135 / 2135 1110 / 1110 Output Total 1200 / 1200 1100 / 1100 1250 / 1250 Balance -71.87 / -71.87 1035 / 1035 -140 / -140 Lab / Micro Data Result Diagrams: 06/13/21 06:30 06/13/21 06:30 Labs: Laboratory Results - last 24 hr 06/13/21 06:30: WBC 8.4, RBC 4.59 L, Hgb 14.7, Hct 43.1, MCV 93.9, MCH 32.0, MCHC 34.1, RDW Std Deviation 49.3 H, RDW Coeff of Annelise 14.2, Plt Count 198, MPV 9.7 06/13/21 06:30: Sodium 137, Potassium 4.2, Chloride 108 H, Carbon Dioxide 23.0, Anion Gap 6, BUN 14, Creatinine 0.60 L, Estim Creat Clear Calc 126.71, Est GFR (MDRD) Af Amer 183, Est GFR (MDRD) Non-Af 151, BUN/Creatinine Ratio 23.2 H, Glucose 135 H, Calcium 7.8 L, Total Bilirubin 0.60, AST 92 H, ALT 156 H, Alkaline Phosphatase 142 H, Total Protein 5.8 L, Albumin 2.4 L, Globulin 3.4, Albumin/Globulin Ratio 0.7 L Micro: Microbiology 06/09/21 11:35 Blood Culture (Wb) - Arm Left Blood Culture - Preliminary No growth in 48 hours. 06/09/21 11:30 Blood Culture (Wb) - Left Hand Blood Culture - Preliminary No growth in 48 hours. Physical Exam Narrative alert and no apparent distress Constitutional Narrative: Patient appears to have Down's syndrome appearance General Appearance: cooperative, well kempt and well developed Orientation / Consciousness: awake, oriented to person, oriented to place and oriented to time HEENT normocephalic, head/scalp atraumatic and moist oral mucous membranes Head and Scalp: normocephalic Eyes PERRL, EOMs intact bilaterally and conjunctivae normal Neck nuchal rigidity, supple, no JVD, thyroid normal and no carotid bruits General: trachea midline Resp normal respiratory effort, no retractions, no use of accessory muscles and clear to auscultation bilaterally Auscultation: Negative for rales, rhonchi or wheezes Cardio regular rate, regular rhythm, S1 normal heart sound, S2 normal heart sound, no murmurs, no rub and no gallops GI normal to inspection, nondistended, normoactive bowel sounds, soft to palpation, non-tender and non-distended Extremity no clubbing, cyanosis or edema Skin no rashes or lesions noted General Skin Exam: no breakdown Neuro CN's II-XII intact bilaterally, no focal motor deficits and no sensory deficits noted Sensorium / Orientation: awake and alert Psych thought process normal Psych Narrative: Patient does not appear anxious or depressed Assessment & Plan Assessment/Plan (1) Acute respiratory failure with hypoxia: (2) Pneumonia due to COVID-19 virus: PLAN: 1. COVID-19 pneumonia-continue present medications, pulmonary medicine and infectious diseases is seeing the patient, no overall change in his medical care at this time #2 acute hypoxic respiratory failure secondary to #1 #3 hypotension #4 Down's syndrome #5 BPH Charges/Coding Visit Charges Inpatient E&M: 34864 Subs Hosp L2
[2021-06-13] MEDS: Atorvastatin Calcium 10 MG Tablet PO (22:32)
[2021-06-13] MEDS: MELATONIN 10 MG TABLET PO (22:32)
[2021-06-14] VITALS (13 sets, daily range): BP systolic 88–105; BP diastolic 55–63; PULSE 54–88; RESP 16–26; TEMP 36.2–36.9; O2SAT 91–98
[2021-06-14 05:57] LABS: Hematocrit 44.8 % (40-54); Hemoglobin 15.4 g/dL (13.0-16.5); Mean Corp Hgb Conc 34.4 g/dL (32-36); Mean Corpuscular Hgb 31.9 pg (27.0-32.0); Mean Corpuscular Volume 92.8 fL (80-94); Mean Platelet Vol. 9.7 fl (6.2-12.0); Platelet Count 201 K/mm3 (150-450); RBC Distribution Width CV 13.8 % (11.6-14.6); RBC Distribution Width SD 47.4 fl (35.1-43.9); Red Blood Count 4.83 M/mm3 (4.6-6.2); White Blood Count 12.6 K/mm3 (4.4-11.0)
[2021-06-14 06:27] LABS: ALB/GLOB Ratio 0.6 RATIO (0.9-2.4); AST(SGOT) 62 U/L (15-37); Alanine Aminotransfer ALT/SGPT 149 U/L (16-61); Albumin, Serum 2.4 g/dL (3.2-5.0); Alkaline Phosphatase 145 U/L (45-117); Anion Gap 5 (5-15); BUN 14 mg/dL (7-18); BUN/Creat Ratio 23.8 RATIO (10-20); Calcium,Total 7.8 mg/dL (8.5-10.1); Chloride 104 mmol/L (98-107); Creatinine, Serum 0.59 mg/dL (0.70-1.30); EST Glomerular Filtration Rate 156 mL/min (>60); Est Glom Filt Rate - Afr Amer 188 mL/min (>60); Estimated Creatinine Clearance 128.86 ml/min; Globulin 3.7 g/dL (2.2-4.2); Glucose 140 mg/dL (74-106); Potassium 4.2 mmol/L (3.5-5.1); Protein, Total 6.1 g/dL (6.4-8.2); Sodium Level 134 mmol/L (136-145)
[2021-06-14] MEDS: Levothyroxine 88 MCG Tablet PO (06:34)
[2021-06-14] MEDS: 0.9% Saline Lock 10 ML Syringe IV ×2 (06:35→08:10)
[2021-06-14] MEDS: Enoxaparin 40 MG/0.4 ML Syringe SC (08:09)
[2021-06-14] MEDS: dexAMETHasone 10 MG/ML Vial 6 MG IV (08:09)
[2021-06-14] MEDS: Tamsulosin HCl 0.4 MG Capsule 0.8 MG PO (08:10)
--- NOTE | 2021-06-14 19:04 | PCM.PN.HOSP ---
Subjective Subjective Patient was seen and examined today, his mother is in the room at the time of my examination. Patient is currently on Airvo, he appears comfortable at this time. Objective Data Objective Data Vital Signs: Vital Signs Temp Pulse Resp BP Pulse Ox 98.0 F 65 20 H 100/63 96 06/14/21 17:18 06/14/21 17:18 06/14/21 17:18 06/14/21 17:18 06/14/21 17:18 Oxygen Flow Rate (L/min) 50 Oxygen Delivery Method Airvo Weight: 59.5 kg Body Mass Index (BMI) 26.4 Intake & Output: Intake and Output for Last 24 Hours 06/12/21 06/13/21 06/14/21 23:59 23:59 23:59 Intake Total 2135 / 2135 1110 / 1110 800 / 800 Output Total 1100 / 1100 1475 / 1475 1050 / 1050 Balance 1035 / 1035 -365 / -365 -250 / -250 Lab / Micro Data Result Diagrams: 06/14/21 05:45 06/14/21 05:45 Labs: Laboratory Results - last 24 hr 06/14/21 05:45: WBC 12.6 H, RBC 4.83, Hgb 15.4, Hct 44.8, MCV 92.8, MCH 31.9, MCHC 34.4, RDW Std Deviation 47.4 H, RDW Coeff of Annelise 13.8, Plt Count 201, MPV 9.7 06/14/21 05:45: Sodium 134 L, Potassium 4.2, Chloride 104, Carbon Dioxide 25.0, Anion Gap 5, BUN 14, Creatinine 0.59 L, Estim Creat Clear Calc 128.86, Est GFR (MDRD) Af Amer 188, Est GFR (MDRD) Non-Af 156, BUN/Creatinine Ratio 23.8 H, Glucose 140 H, Calcium 7.8 L, Total Bilirubin 0.70, AST 62 H, ALT 149 H, Alkaline Phosphatase 145 H, Total Protein 6.1 L, Albumin 2.4 L, Globulin 3.7, Albumin/Globulin Ratio 0.6 L Micro: Microbiology 06/09/21 11:30 Blood Culture (Wb) - Left Hand Blood Culture - Final No growth in 5 days. 06/09/21 11:35 Blood Culture (Wb) - Arm Left Blood Culture - Final No growth in 5 days. Physical Exam Narrative alert and no apparent distress Constitutional Narrative: Patient appears to have Down's syndrome appearance General Appearance: cooperative, well kempt and well developed Orientation / Consciousness: awake, oriented to person, oriented to place and oriented to time HEENT normocephalic, head/scalp atraumatic and moist oral mucous membranes Head and Scalp: normocephalic Eyes PERRL, EOMs intact bilaterally and conjunctivae normal Neck nuchal rigidity, supple, no JVD, thyroid normal and no carotid bruits General: trachea midline Resp normal respiratory effort, no retractions, no use of accessory muscles and clear to auscultation bilaterally Auscultation: Negative for rales, rhonchi or wheezes Cardio regular rate, regular rhythm, S1 normal heart sound, S2 normal heart sound, no murmurs, no rub and no gallops GI normal to inspection, nondistended, normoactive bowel sounds, soft to palpation, non-tender and non-distended Extremity no clubbing, cyanosis or edema Skin no rashes or lesions noted General Skin Exam: no breakdown Neuro CN's II-XII intact bilaterally, no focal motor deficits and no sensory deficits noted Sensorium / Orientation: awake and alert Psych thought process normal Psych Narrative: Patient does not appear anxious or depressed Assessment & Plan Assessment/Plan (1) Acute respiratory failure with hypoxia: (2) Pneumonia due to COVID-19 virus: PLAN: 1. COVID-19 pneumonia-continue present medications, pulmonary medicine and infectious diseases is seeing the patient, no overall change in his medical care at this time, patient is currently on dexamethasone day 5 and baricitinib day 3 #2 acute hypoxic respiratory failure secondary to #1 #3 hypotension #4 Down's syndrome #5 BPH Charges/Coding Visit Charges Inpatient E&M: 27642 Subs Hosp L2
[2021-06-14] MEDS: Atorvastatin Calcium 10 MG Tablet PO (20:59)
[2021-06-15] VITALS (12 sets, daily range): BP systolic 77–104; BP diastolic 50–65; PULSE 60–88; RESP 18–20; TEMP 36.2–36.8; O2SAT 92–98
[2021-06-15] MEDS: Levothyroxine 88 MCG Tablet PO (05:13)
[2021-06-15 06:29] LABS: Hematocrit 43.1 % (40-54); Hemoglobin 15.2 g/dL (13.0-16.5); Mean Corp Hgb Conc 35.3 g/dL (32-36); Mean Corpuscular Hgb 32.1 pg (27.0-32.0); Mean Corpuscular Volume 91.1 fL (80-94); Mean Platelet Vol. 10.4 fl (6.2-12.0); Platelet Count 165 K/mm3 (150-450); RBC Distribution Width CV 13.6 % (11.6-14.6); RBC Distribution Width SD 46.1 fl (35.1-43.9); Red Blood Count 4.73 M/mm3 (4.6-6.2); White Blood Count 13.7 K/mm3 (4.4-11.0)
[2021-06-15 06:50] LABS: ALB/GLOB Ratio 0.7 RATIO (0.9-2.4); AST(SGOT) 50 U/L (15-37); Alanine Aminotransfer ALT/SGPT 138 U/L (16-61); Albumin, Serum 2.4 g/dL (3.2-5.0); Alkaline Phosphatase 147 U/L (45-117); Anion Gap 2 (5-15); BUN 15 mg/dL (7-18); BUN/Creat Ratio 26.6 RATIO (10-20); Calcium,Total 7.8 mg/dL (8.5-10.1); Chloride 102 mmol/L (98-107); Creatinine, Serum 0.56 mg/dL (0.70-1.30); EST Glomerular Filtration Rate 164 mL/min (>60); Est Glom Filt Rate - Afr Amer 198 mL/min (>60); Estimated Creatinine Clearance 135.76 ml/min; Globulin 3.6 g/dL (2.2-4.2); Glucose 130 mg/dL (74-106); Sodium Level 133 mmol/L (136-145)
[2021-06-15] MEDS: dexAMETHasone 10 MG/ML Vial 6 MG IV (09:30)
[2021-06-15] MEDS: Tamsulosin HCl 0.4 MG Capsule 0.8 MG PO (09:30)
[2021-06-15] MEDS: 0.9% Saline Lock 10 ML Syringe IV (09:31)
[2021-06-15] MEDS: Enoxaparin 40 MG/0.4 ML Syringe SC (09:35)
--- NOTE | 2021-06-15 18:33 | PCM.PN.HOSP ---
Subjective Subjective Patient was seen and examined today, he remains on Airvo at this time, he does not appear in any respiratory distress, his mother was in his room when I talked with her briefly today about his care. Objective Data Objective Data Vital Signs: Vital Signs Temp Pulse Resp BP Pulse Ox 97.1 F L 71 18 96/60 96 06/15/21 17:28 06/15/21 17:28 06/15/21 17:28 06/15/21 17:28 06/15/21 17:28 Oxygen Flow Rate (L/min) 50 Oxygen Delivery Method Airvo Weight: 59.5 kg Body Mass Index (BMI) 26.4 Intake & Output: Intake and Output for Last 24 Hours 06/13/21 06/14/21 06/15/21 23:59 23:59 23:59 Intake Total 1110 / 1110 800 / 800 Output Total 1475 / 1475 1050 / 1050 225 / 225 Balance -365 / -365 -250 / -250 -225 / -225 Lab / Micro Data Result Diagrams: 06/15/21 05:50 06/15/21 05:50 Labs: Laboratory Results - last 24 hr 06/15/21 05:50: WBC 13.7 H, RBC 4.73, Hgb 15.2, Hct 43.1, MCV 91.1, MCH 32.1 H, MCHC 35.3, RDW Std Deviation 46.1 H, RDW Coeff of Annelise 13.6, Plt Count 165, MPV 10.4 06/15/21 05:50: Sodium 133 L, Potassium 4.0, Chloride 102, Carbon Dioxide 29.0, Anion Gap 2 L, BUN 15, Creatinine 0.56 L, Estim Creat Clear Calc 135.76, Est GFR (MDRD) Af Amer 198, Est GFR (MDRD) Non-Af 164, BUN/Creatinine Ratio 26.6 H, Glucose 130 H, Calcium 7.8 L, Total Bilirubin 0.60, AST 50 H, ALT 138 H, Alkaline Phosphatase 147 H, Total Protein 6.0 L, Albumin 2.4 L, Globulin 3.6, Albumin/Globulin Ratio 0.7 L Micro: Microbiology 06/09/21 11:30 Blood Culture (Wb) - Left Hand Blood Culture - Final No growth in 5 days. 06/09/21 11:35 Blood Culture (Wb) - Arm Left Blood Culture - Final No growth in 5 days. Physical Exam Narrative alert and no apparent distress Constitutional Narrative: Patient appears to have Down's syndrome appearance General Appearance: cooperative, well kempt and well developed Orientation / Consciousness: awake, oriented to person, oriented to place and oriented to time HEENT normocephalic, head/scalp atraumatic and moist oral mucous membranes Head and Scalp: normocephalic Eyes PERRL, EOMs intact bilaterally and conjunctivae normal Neck nuchal rigidity, supple, no JVD, thyroid normal and no carotid bruits General: trachea midline Resp normal respiratory effort, no retractions, no use of accessory muscles and clear to auscultation bilaterally Auscultation: Negative for rales, rhonchi or wheezes Cardio regular rate, regular rhythm, S1 normal heart sound, S2 normal heart sound, no murmurs, no rub and no gallops GI normal to inspection, nondistended, normoactive bowel sounds, soft to palpation, non-tender and non-distended Extremity no clubbing, cyanosis or edema Skin no rashes or lesions noted General Skin Exam: no breakdown Neuro CN's II-XII intact bilaterally, no focal motor deficits and no sensory deficits noted Sensorium / Orientation: awake and alert Psych thought process normal Psych Narrative: Patient does not appear anxious or depressed Assessment & Plan Assessment/Plan (1) Acute respiratory failure with hypoxia: (2) Pneumonia due to COVID-19 virus: PLAN: 1. COVID-19 pneumonia-continue present medications, pulmonary medicine and infectious diseases is seeing the patient, no overall change in his medical care at this time, patient is currently on dexamethasone day 6 and baricitinib day 4. Patient has already finished his remdesivir course. #2 acute hypoxic respiratory failure secondary to #1 #3 hypotension #4 Down's syndrome #5 BPH Charges/Coding Visit Charges Inpatient E&M: 32226 Subs Hosp L2
[2021-06-15] MEDS: Atorvastatin Calcium 10 MG Tablet PO (20:40)
[2021-06-16] VITALS (11 sets, daily range): BP systolic 88–103; BP diastolic 55–71; PULSE 65–88; RESP 18–24; TEMP 36.3–37.1; O2SAT 91–98
[2021-06-16] MEDS: Levothyroxine 88 MCG Tablet PO (05:18)
[2021-06-16 08:16] LABS: Hematocrit 44.4 % (40-54); Hemoglobin 14.9 g/dL (13.0-16.5); Mean Corp Hgb Conc 33.6 g/dL (32-36); Mean Corpuscular Hgb 31.6 pg (27.0-32.0); Mean Corpuscular Volume 94.3 fL (80-94); Mean Platelet Vol. 10.5 fl (6.2-12.0); Platelet Count 162 K/mm3 (150-450); RBC Distribution Width CV 14.1 % (11.6-14.6); RBC Distribution Width SD 48.6 fl (35.1-43.9); Red Blood Count 4.71 M/mm3 (4.6-6.2); White Blood Count 14.7 K/mm3 (4.4-11.0)
[2021-06-16 08:34] LABS: ALB/GLOB Ratio 0.6 RATIO (0.9-2.4); AST(SGOT) 37 U/L (15-37); Alanine Aminotransfer ALT/SGPT 115 U/L (16-61); Albumin, Serum 2.3 g/dL (3.2-5.0); Alkaline Phosphatase 142 U/L (45-117); Anion Gap 3 (5-15); BUN 13 mg/dL (7-18); BUN/Creat Ratio 19.1 RATIO (10-20); Chloride 99 mmol/L (98-107); Creatinine, Serum 0.68 mg/dL (0.70-1.30); EST Glomerular Filtration Rate 132 mL/min (>60); Est Glom Filt Rate - Afr Amer 159 mL/min (>60); Estimated Creatinine Clearance 111.81 ml/min; Globulin 3.6 g/dL (2.2-4.2); Glucose 122 mg/dL (74-106); Potassium 4.3 mmol/L (3.5-5.1); Protein, Total 5.9 g/dL (6.4-8.2); Sodium Level 135 mmol/L (136-145)
[2021-06-16] MEDS: Enoxaparin 40 MG/0.4 ML Syringe SC (10:38)
[2021-06-16] MEDS: dexAMETHasone 10 MG/ML Vial 6 MG IV (10:38)
[2021-06-16] MEDS: Tamsulosin HCl 0.4 MG Capsule 0.8 MG PO (10:39)
--- NOTE | 2021-06-16 11:31 | NURSING ---
Olumiant not given to pt per pt mother request, after reading more about medication she does not want to risk the side effects.
--- NOTE | 2021-06-16 16:04 | PCM.PN.HOSP ---
Subjective Subjective Patient was seen and examined today, presently he is on nasal cannula oxygen at 10 L/min, patient does not complain of any shortness of breath at rest Objective Data Objective Data Vital Signs: Vital Signs Temp Pulse Resp BP Pulse Ox 97.9 F 66 18 103/71 95 06/16/21 15:13 06/16/21 15:13 06/16/21 15:13 06/16/21 15:13 06/16/21 15:13 Oxygen Flow Rate (L/min) 10 Oxygen Delivery Method Nasal Cannula Weight: 59.5 kg Body Mass Index (BMI) 26.4 Intake & Output: Intake and Output for Last 24 Hours 06/14/21 06/15/21 06/16/21 23:59 23:59 23:59 Intake Total 800 / 800 900 / 900 Output Total 1050 / 1050 700 / 700 500 / 500 Balance -250 / -250 -700 / -700 400 / 400 Lab / Micro Data Result Diagrams: 06/16/21 07:10 06/16/21 07:10 Labs: Laboratory Results - last 24 hr 06/16/21 07:10: WBC 14.7 H, RBC 4.71, Hgb 14.9, Hct 44.4, MCV 94.3 H, MCH 31.6, MCHC 33.6, RDW Std Deviation 48.6 H, RDW Coeff of Annelise 14.1, Plt Count 162, MPV 10.5 06/16/21 07:10: Sodium 135 L, Potassium 4.3, Chloride 99, Carbon Dioxide 33.0 H, Anion Gap 3 L, BUN 13, Creatinine 0.68 L, Estim Creat Clear Calc 111.81, Est GFR (MDRD) Af Amer 159, Est GFR (MDRD) Non-Af 132, BUN/Creatinine Ratio 19.1, Glucose 122 H, Calcium 8.0 L, Total Bilirubin 0.50, AST 37, ALT 115 H, Alkaline Phosphatase 142 H, Total Protein 5.9 L, Albumin 2.3 L, Globulin 3.6, Albumin/Globulin Ratio 0.6 L Micro: Microbiology 06/09/21 11:30 Blood Culture (Wb) - Left Hand Blood Culture - Final No growth in 5 days. 06/09/21 11:35 Blood Culture (Wb) - Arm Left Blood Culture - Final No growth in 5 days. Physical Exam Narrative alert and no apparent distress Constitutional Narrative: Patient appears to have Down's syndrome appearance General Appearance: cooperative, well kempt and well developed Orientation / Consciousness: awake, oriented to person, oriented to place and oriented to time HEENT normocephalic, head/scalp atraumatic and moist oral mucous membranes Head and Scalp: normocephalic Eyes PERRL, EOMs intact bilaterally and conjunctivae normal Neck nuchal rigidity, supple, no JVD, thyroid normal and no carotid bruits General: trachea midline Resp normal respiratory effort, no retractions, no use of accessory muscles and clear to auscultation bilaterally Auscultation: Negative for rales, rhonchi or wheezes Cardio regular rate, regular rhythm, S1 normal heart sound, S2 normal heart sound, no murmurs, no rub and no gallops GI normal to inspection, nondistended, normoactive bowel sounds, soft to palpation, non-tender and non-distended Extremity no clubbing, cyanosis or edema Skin no rashes or lesions noted General Skin Exam: no breakdown Neuro CN's II-XII intact bilaterally, no focal motor deficits and no sensory deficits noted Sensorium / Orientation: awake and alert Psych thought process normal Psych Narrative: Patient does not appear anxious or depressed Assessment & Plan Assessment/Plan (1) Acute respiratory failure with hypoxia: (2) Pneumonia due to COVID-19 virus: PLAN: 1. COVID-19 pneumonia-continue present medications, pulmonary medicine and infectious diseases is seeing the patient, no overall change in his medical care at this time, patient is currently on dexamethasone day 7 and baricitinib day 5. Patient has already finished his remdesivir course. #2 acute hypoxic respiratory failure secondary to #1, patient's oxygen requirement has improved today #3 hypotension #4 Down's syndrome #5 BPH Charges/Coding Visit Charges Inpatient E&M: 80619 Subs Hosp L2
[2021-06-16] MEDS: Atorvastatin Calcium 10 MG Tablet PO (22:12)
[2021-06-16] MEDS: 0.9% Saline Lock 10 ML Syringe IV (22:12)
[2021-06-16] MEDS: MELATONIN 10 MG TABLET PO (22:12)
[2021-06-17] VITALS (9 sets, daily range): BP systolic 89–114; BP diastolic 54–80; PULSE 57–88; RESP 20–24; TEMP 36.5–36.9; O2SAT 90–99
[2021-06-17 06:12] LABS: Hematocrit 42.3 % (40-54); Hemoglobin 14.9 g/dL (13.0-16.5); Mean Corp Hgb Conc 35.2 g/dL (32-36); Mean Corpuscular Hgb 32.5 pg (27.0-32.0); Mean Corpuscular Volume 92.4 fL (80-94); Mean Platelet Vol. 10.3 fl (6.2-12.0); POSITIVE MORPHOLOGY YES; Platelet Count 155 K/mm3 (150-450); RBC Distribution Width CV 14.1 % (11.6-14.6); RBC Distribution Width SD 47.8 fl (35.1-43.9); Red Blood Count 4.58 M/mm3 (4.6-6.2); White Blood Count 12.7 K/mm3 (4.4-11.0)
[2021-06-17 06:38] LABS: Scan Indicated on CBC? Y/N YES- FLAGS NOTED
[2021-06-17] MEDS: Levothyroxine 88 MCG Tablet PO (06:48)
[2021-06-17 06:55] LABS: ALB/GLOB Ratio 0.6 RATIO (0.9-2.4); AST(SGOT) 37 U/L (15-37); Alanine Aminotransfer ALT/SGPT 108 U/L (16-61); Albumin, Serum 2.2 g/dL (3.2-5.0); Alkaline Phosphatase 141 U/L (45-117); Anion Gap 7 (5-15); BUN 13 mg/dL (7-18); BUN/Creat Ratio 20.5 RATIO (10-20); Chloride 99 mmol/L (98-107); Creatinine, Serum 0.63 mg/dL (0.70-1.30); EST Glomerular Filtration Rate 143 mL/min (>60); Est Glom Filt Rate - Afr Amer 173 mL/min (>60); Estimated Creatinine Clearance 120.68 ml/min; Globulin 3.9 g/dL (2.2-4.2); Glucose 140 mg/dL (74-106); Potassium 4.1 mmol/L (3.5-5.1); Protein, Total 6.1 g/dL (6.4-8.2); Sodium Level 135 mmol/L (136-145)
--- NOTE | 2021-06-17 07:46 | PCM.PN.INT ---
Assessment & Plan Assessment/Plan (1) Acute respiratory failure with hypoxia: (2) Pneumonia due to COVID-19 virus: (3) Acute hypotension: (4) Dehydration: PLAN: RECOMMENDATIONS: 1. Continue to wean supplemental oxygen to maintain saturations at or above 90%. 2. Continue Decadron to complete 10-day treatment course. 3. Continue Lovenox as ordered. 4. Intermittent use of diuretics to maintain euvolemic state. 5. Encourage incentive spirometer use and mobilize patient as tolerated. IMPRESSIONS: 1. Acute hypoxic respiratory failure secondary to COVID-19 The patient's oxygenation status is slowly improving. He is currently doing well on nasal cannula supplemental O2. Continue to wean as tolerated to maintain saturations at or above 90%. Continue Decadron to finish 10-day treatment course. Although the patient was started on baricitinib, his POA refused the medication after 3 days of therapy. Continue intermittent use of diuretics to maintain euvolemic state. Encourage incentive spirometer use and mobilize patient as tolerated. 2. History of VSD/Down syndrome Complicates care, management, recovery and prognosis. Continue home medications as indicated. This note was generated with [employer] dictation software. It may contain incorrect words, spelling, and punctuation that were not noted in checking the note before signing. Subjective Subjective The patient was seen and examined at the bedside this morning. Events from the last 24 hours have been reviewed. The patient is currently afebrile, hemodynamically stable and maintaining appropriate oxygen saturations on 10 L/min via nasal cannula. The patient is documented to be overall net +2.7 L for the hospital admission. The patient remains on Decadron. He only completed approximately 3 days of baricitinib therapy. Objective Data Objective Data The patient's most recent lab work, culture data and imaging studies have all been personally reviewed. Rapid coronavirus antigen testing was positive on June 05. Vital Signs: Vital Signs Temp Pulse Resp BP Pulse Ox 98.3 F 87 24 H 89/59 L 95 06/17/21 06:49 06/17/21 06:49 06/17/21 06:49 06/17/21 06:49 06/17/21 06:49 Oxygen Flow Rate (L/min) 10 Oxygen Delivery Method Nasal Cannula Weight: 59.5 kg Body Mass Index (BMI) 26.4 Intake & Output: Intake and Output for Last 24 Hours 06/15/21 06/16/21 06/17/21 23:59 23:59 23:59 Intake Total 1400 / 1400 Output Total 700 / 700 1375 / 1375 Balance -700 / -700 Lab / Micro Data Attestation: I reviewed the patient's lab results. Result Diagrams: 06/17/21 05:47 06/17/21 05:47 Labs: Laboratory Results - last 24 hr 06/16/21 07:10: WBC 14.7 H, RBC 4.71, Hgb 14.9, Hct 44.4, MCV 94.3 H, MCH 31.6, MCHC 33.6, RDW Std Deviation 48.6 H, RDW Coeff of Annelise 14.1, Plt Count 162, MPV 10.5 06/16/21 07:10: Sodium 135 L, Potassium 4.3, Chloride 99, Carbon Dioxide 33.0 H, Anion Gap 3 L, BUN 13, Creatinine 0.68 L, Estim Creat Clear Calc 111.81, Est GFR (MDRD) Af Amer 159, Est GFR (MDRD) Non-Af 132, BUN/Creatinine Ratio 19.1, Glucose 122 H, Calcium 8.0 L, Total Bilirubin 0.50, AST 37, ALT 115 H, Alkaline Phosphatase 142 H, Total Protein 5.9 L, Albumin 2.3 L, Globulin 3.6, Albumin/Globulin Ratio 0.6 L 06/17/21 05:47: WBC 12.7 H, RBC 4.58 L, Hgb 14.9, Hct 42.3, MCV 92.4, MCH 32.5 H, MCHC 35.2, RDW Std Deviation 47.8 H, RDW Coeff of Annelise 14.1, Plt Count 155, MPV 10.3, Differential Comment 06/17/21 05:47: Sodium 135 L, Potassium 4.1, Chloride 99, Carbon Dioxide 29.0, Anion Gap 7, BUN 13, Creatinine 0.63 L, Estim Creat Clear Calc 120.68, Est GFR (MDRD) Af Amer 173, Est GFR (MDRD) Non-Af 143, BUN/Creatinine Ratio 20.5 H, Glucose 140 H, Calcium 8.0 L, Total Bilirubin 0.50, AST 37, ALT 108 H, Alkaline Phosphatase 141 H, Total Protein 6.1 L, Albumin 2.2 L, Globulin 3.9, Albumin/Globulin Ratio 0.6 L Micro: Microbiology 06/09/21 11:30 Blood Culture (Wb) - Left Hand Blood Culture - Final No growth in 5 days. 06/09/21 11:35 Blood Culture (Wb) - Arm Left Blood Culture - Final No growth in 5 days. Physical Exam Const no apparent distress Constitutional Narrative: MRDD appearance. Resting comfortably supine in bed. General Appearance: cooperative HEENT head/scalp atraumatic and moist oral mucous membranes Eyes PERRL and EOMs intact bilaterally Neck supple General: trachea midline Resp no use of accessory muscles Auscultation: diminished lung sounds; Negative for rales, rhonchi or wheezes Cardio regular rate and regular rhythm GI normal to inspection, nondistended, normoactive bowel sounds Extremity no clubbing, cyanosis or edema Skin no rashes or lesions noted Neuro no focal motor deficits Psych Mood & Affect: flat affect Charges/Coding Visit Charges Inpatient E&M: 88538 Subs Hosp L2
[2021-06-17] MEDS: Tamsulosin HCl 0.4 MG Capsule 0.8 MG PO (08:32)
[2021-06-17] MEDS: 0.9% Saline Lock 10 ML Syringe IV ×2 (08:33→21:17)
[2021-06-17] MEDS: dexAMETHasone 10 MG/ML Vial 6 MG IV (08:33)
[2021-06-17] MEDS: Enoxaparin 40 MG/0.4 ML Syringe SC (08:33)
--- NOTE | 2021-06-17 17:41 | PN.HOSP_ITS ---
Subjective Subjective Patient was seen and examined today, he does not appear to be in any respiratory distress at rest, I talked briefly with his mother who was in the room at the time of my exam. Patient is now on 8 L of oxygen via nasal cannula. Objective Data Objective Data Vital Signs: Vital Signs Temp Pulse Resp BP Pulse Ox 98.0 F 79 20 H 113/80 98 06/17/21 14:54 06/17/21 14:54 06/17/21 14:54 06/17/21 14:54 06/17/21 14:54 Oxygen Flow Rate (L/min) 8 Oxygen Delivery Method Nasal Cannula Weight: 59.5 kg Body Mass Index (BMI) 26.4 Intake & Output: Intake and Output for Last 24 Hours 06/15/21 06/16/21 06/17/21 23:59 23:59 23:59 Intake Total 1400 / 1400 400 / 400 Output Total 700 / 700 1375 / 1375 300 / 300 Balance -700 / -700 / 100 / 100 Lab / Micro Data Result Diagrams: 06/17/21 05:47 06/17/21 05:47 Labs: Laboratory Results - last 24 hr 06/17/21 05:47: WBC 12.7 H, RBC 4.58 L, Hgb 14.9, Hct 42.3, MCV 92.4, MCH 32.5 H , MCHC 35.2, RDW Std Deviation 47.8 H, RDW Coeff of Annelise 14.1, Plt Count 155, MPV 10.3, Differential Comment 06/17/21 05:47: Sodium 135 L, Potassium 4.1, Chloride 99, Carbon Dioxide 29.0, Anion Gap 7, BUN 13, Creatinine 0.63 L, Estim Creat Clear Calc 120.68, Est GFR (MDRD) Af Amer 173, Est GFR (MDRD) Non-Af 143, BUN/Creatinine Ratio 20.5 H, Glucose 140 H, Calcium 8.0 L, Total Bilirubin 0.50, AST 37, ALT 108 H, Alkaline Phosphatase 141 H, Total Protein 6.1 L, Albumin 2.2 L, Globulin 3.9, Albumin/Globulin Ratio 0.6 L Micro: Microbiology 06/09/21 11:30 Blood Culture (Wb) - Left Hand Blood Culture - Final No growth in 5 days. 06/09/21 11:35 Blood Culture (Wb) - Arm Left Blood Culture - Final No growth in 5 days. Physical Exam Narrative alert and no apparent distress Constitutional Narrative: Patient appears to have Down's syndrome appearance General Appearance: cooperative, well kempt and well developed Orientation / Consciousness: awake, oriented to person, oriented to place and oriented to time HEENT normocephalic, head/scalp atraumatic and moist oral mucous membranes Head and Scalp: normocephalic Eyes PERRL, EOMs intact bilaterally and conjunctivae normal Neck nuchal rigidity, supple, no JVD, thyroid normal and no carotid bruits General: trachea midline Resp normal respiratory effort, no retractions, no use of accessory muscles and clear to auscultation bilaterally Auscultation: Negative for rales, rhonchi or wheezes Cardio regular rate, regular rhythm, S1 normal heart sound, S2 normal heart sound, no murmurs, no rub and no gallops GI normal to inspection, nondistended, normoactive bowel sounds, soft to palpation, non-tender and non-distended Extremity no clubbing, cyanosis or edema Skin no rashes or lesions noted General Skin Exam: no breakdown Neuro CN's II-XII intact bilaterally, no focal motor deficits and no sensory deficits noted Sensorium / Orientation: awake and alert Psych thought process normal Psych Narrative: Patient does not appear anxious or depressed Assessment & Plan Assessment/Plan (1) Acute respiratory failure with hypoxia: (2) Pneumonia due to COVID-19 virus: PLAN: 1. COVID-19 pneumonia-continue present medications, pulmonary medicine and infectious diseases is seeing the patient, no overall change in his medical care at this time, patient is currently on dexamethasone day 8. Patient's mother declined the baricitinib for the patient. Patient has already finished his remdesivir course. #2 acute hypoxic respiratory failure secondary to #1, patient's oxygen require ment has improved today #3 hypotension #4 Down's syndrome #5 BPH Charges/Coding Visit Charges Inpatient E&M: 03396 Subs Hosp L2
[2021-06-17] MEDS: MELATONIN 10 MG TABLET PO (21:14)
[2021-06-17] MEDS: Atorvastatin Calcium 10 MG Tablet PO (21:14)
[2021-06-18] VITALS (7 sets, daily range): BP systolic 91–138; BP diastolic 58–95; PULSE 59–77; RESP 20–24; TEMP 36.6–37; O2SAT 93–96
[2021-06-18] MEDS: Levothyroxine 88 MCG Tablet PO (05:45)
[2021-06-18 08:57] LABS: Anion Gap 7 (5-15); BUN 14 mg/dL (7-18); Calcium,Total 8.2 mg/dL (8.5-10.1); Chloride 101 mmol/L (98-107); Creatinine, Serum 0.54 mg/dL (0.70-1.30); EST Glomerular Filtration Rate 172 mL/min (>60); Est Glom Filt Rate - Afr Amer 209 mL/min (>60); Estimated Creatinine Clearance 140.79 ml/min; Glucose 109 mg/dL (74-106); Magnesium 2.4 mg/dL (1.6-2.6); Phosphorus 3.6 mg/dL (2.5-4.9); Potassium 4.3 mmol/L (3.5-5.1); Sodium Level 135 mmol/L (136-145)
[2021-06-18] MEDS: Tamsulosin HCl 0.4 MG Capsule 0.8 MG PO (10:12)
[2021-06-18] MEDS: dexAMETHasone 10 MG/ML Vial 6 MG IV (10:12)
[2021-06-18] MEDS: 0.9% Saline Lock 10 ML Syringe IV (10:13)
[2021-06-18] MEDS: Enoxaparin 40 MG/0.4 ML Syringe SC (10:13)
--- NOTE | 2021-06-18 10:27 | PCM.PN.INT ---
Assessment & Plan Assessment/Plan (1) Acute respiratory failure with hypoxia: (2) Pneumonia due to COVID-19 virus: (3) Acute hypotension: (4) Dehydration: PLAN: RECOMMENDATIONS: 1. Continue to wean supplemental oxygen to maintain saturations at or above 90%. 2. Continue Decadron to complete 10-day treatment course. 3. Continue Lovenox as ordered. 4. Intermittent use of diuretics to maintain euvolemic state. 5. Encourage incentive spirometer use and mobilize patient as tolerated. IMPRESSIONS: 1. Acute hypoxic respiratory failure secondary to COVID-19 The patient's oxygenation status is slowly improving. He is currently doing well on nasal cannula supplemental O2. Continue to wean as tolerated to maintain saturations at or above 90%. Continue Decadron to finish 10-day treatment course. Although the patient was started on baricitinib, his POA refused the medication after 3 days of therapy. Continue intermittent use of diuretics to maintain euvolemic state. Encourage incentive spirometer use and mobilize patient as tolerated. Potential discharge if patient is able to ambulate on 6 L or less 2. History of VSD/Down syndrome Complicates care, management, recovery and prognosis. Continue home medications as indicated. This note was generated with [email or web address] dictation software. It may contain incorrect words, spelling, and punctuation that were not noted in checking the note before signing. Subjective Subjective Patient did okay overnight. Mother reports that she has had difficulty getting the patient to use incentive spirometer, but he has been using his Acapella. Patient did desaturate with sleep requiring increased to 10 L nasal cannula to maintain saturations. Objective Data Objective Data Vital Signs: Vital Signs Temp Pulse Resp BP Pulse Ox 36.6 C 59 L 24 H 138/95 H 93 06/18/21 05:54 06/18/21 05:54 06/18/21 05:54 06/18/21 05:54 06/18/21 05:54 Oxygen Flow Rate (L/min) 12 Oxygen Delivery Method Nasal Cannula Weight: 59.5 kg Body Mass Index (BMI) 26.4 Intake & Output: Intake and Output for Last 24 Hours 06/16/21 06/17/21 06/18/21 23:59 23:59 23:59 Intake Total 1400 / 1400 1000 / 1000 Output Total 1375 / 1375 1000 / 1000 Balance 0 / 0 Lab / Micro Data Result Diagrams: 06/17/21 05:47 06/18/21 08:09 Labs: Laboratory Results - last 24 hr 06/18/21 08:09: Sodium 135 L, Potassium 4.3, Chloride 101, Carbon Dioxide 27.0, Anion Gap 7, BUN 14, Creatinine 0.54 L, Estim Creat Clear Calc 140.79, Est GFR (MDRD) Af Amer 209, Est GFR (MDRD) Non-Af 172, BUN/Creatinine Ratio 26.0 H, Glucose 109 H, Calcium 8.2 L, Phosphorus 3.6, Magnesium 2.4 Micro: Microbiology 06/09/21 11:30 Blood Culture (Wb) - Left Hand Blood Culture - Final No growth in 5 days. 06/09/21 11:35 Blood Culture (Wb) - Arm Left Blood Culture - Final No growth in 5 days. Physical Exam Const no apparent distress Constitutional Narrative: MRDD appearance. Resting comfortably supine in bed. General Appearance: cooperative HEENT head/scalp atraumatic and moist oral mucous membranes Eyes PERRL and EOMs intact bilaterally Neck supple General: trachea midline Resp no use of accessory muscles Auscultation: diminished lung sounds; Negative for rales, rhonchi or wheezes Cardio regular rate and regular rhythm GI normal to inspection, nondistended, normoactive bowel sounds Extremity no clubbing, cyanosis or edema Skin no rashes or lesions noted Neuro no focal motor deficits Psych Mood & Affect: flat affect Charges/Coding Visit Charges Inpatient E&M: 60001 Subs Hosp L2
[2021-06-18] MEDS: Furosemide 20 MG Tablet PO (10:46)
--- NOTE | 2021-06-18 19:27 | PCM.PN.HOSP ---
Subjective Subjective Doing well, breathing little bit better. Maintaining oxygen saturations on 6 L, will obtain ambulatory pulse ox in the morning Objective Data Objective Data Vital Signs: Vital Signs Temp Pulse Resp BP Pulse Ox 98.6 F 77 20 H 95/64 96 06/18/21 18:18 06/18/21 18:18 06/18/21 18:18 06/18/21 18:18 06/18/21 18:18 Oxygen Flow Rate (L/min) 4 Oxygen Delivery Method Nasal Cannula Weight: 131 lb 2.801 oz Body Mass Index (BMI) 26.4 Intake & Output: Intake and Output for Last 24 Hours 06/17/21 06/18/21 06/19/21 03:59 03:59 03:59 Intake Total 1400 / 1400 1000 / 1000 500 / 500 Output Total 1375 / 1375 1000 / 1000 850 / 850 Balance 0 / 0 -350 / -350 Lab / Micro Data Result Diagrams: 06/17/21 05:47 06/18/21 08:09 Labs: Laboratory Results - last 24 hr 06/18/21 08:09: Sodium 135 L, Potassium 4.3, Chloride 101, Carbon Dioxide 27.0, Anion Gap 7, BUN 14, Creatinine 0.54 L, Estim Creat Clear Calc 140.79, Est GFR (MDRD) Af Amer 209, Est GFR (MDRD) Non-Af 172, BUN/Creatinine Ratio 26.0 H, Glucose 109 H, Calcium 8.2 L, Phosphorus 3.6, Magnesium 2.4 Micro: Microbiology 06/09/21 11:30 Blood Culture (Wb) - Left Hand Blood Culture - Final No growth in 5 days. 06/09/21 11:35 Blood Culture (Wb) - Arm Left Blood Culture - Final No growth in 5 days. Physical Exam Const alert, oriented x3 and no apparent distress General Appearance: cooperative HEENT normocephalic and moist oral mucous membranes Eyes PERRL, EOMs intact bilaterally and conjunctivae normal Neck supple and no JVD Resp normal respiratory effort, no retractions, no use of accessory muscles and clear to auscultation bilaterally Auscultation: diminished lung sounds; Negative for crackles, rales, rhonchi or wheezes Cardio regular rate, regular rhythm, S1 normal heart sound, S2 normal heart sound and no murmurs GI soft to palpation, non-tender and non-distended; Negative for hepatosplenomegaly Extremity no clubbing, cyanosis or edema Skin no rashes or lesions noted Neuro no focal motor deficits and no sensory deficits noted Psych affect normal Appearance: appropriate Assessment & Plan Assessment/Plan (1) Acute respiratory failure with hypoxia: (2) Pneumonia due to COVID-19 virus: PLAN: 1. Acute hypoxic respiratory failure secondary to COVID-19 pneumonia -He is unvaccinated as is his mother -Continue with Decadron, he finished of remdesivir -His mother declined baricitinib treatment -We will obtain an ambulatory pulse ox in the morning of he is able to maintain his ambulatory oxygen at or below 6 L can consider discharge -As needed Lasix 2. Hyperlipidemia -Continue with simvastatin 3. Hypothyroidism -Stable -Continue with Synthroid 4. Anxiety/depression/Down syndrome -Stable -Continue with Wellbutrin 5. BPH -Stable -Continue with Flomax DVT: Lovenox Charges/Coding Visit Charges Inpatient E&M: 71636 Subs Hosp L2
[2021-06-18] MEDS: Atorvastatin Calcium 10 MG Tablet PO (20:58)
[2021-06-19] VITALS (8 sets, daily range): BP systolic 95–116; BP diastolic 56–78; PULSE 64–77; RESP 18–20; TEMP 36.5–36.9; O2SAT 86–98
[2021-06-19] MEDS: Levothyroxine 88 MCG Tablet PO (06:08)
[2021-06-19 07:17] LABS: Absolute Lymphocyte Count 0.46 X10^3/uL (0.83-4.51); Absolute Neutrophil Count 8.7 X10^3/uL (2.0-7.7); Basophil# 0.03 X10^3/uL; Basophil% 0.3 % (0-1); Hematocrit 43.2 % (40-54); Hemoglobin 14.8 g/dL (13.0-16.5); Lymphocyte # 0.46 X10^3/ul (0.83-4.51); Lymphocyte % 4.4 % (19-41); Mean Corp Hgb Conc 34.3 g/dL (32-36); Mean Corpuscular Hgb 32.4 pg (27.0-32.0); Mean Corpuscular Volume 94.5 fL (80-94); Mean Platelet Vol. 10.3 fl (6.2-12.0); Monocyte# 1.08 X10^3/uL; Monocyte% 10.2 % (0-10); NRBC Flagged by Analyzer 0 % (0-5); Neutrophil # 8.67 X10^3/uL (2.7-7.7); Neutrophil % 82.2 % (47-70); POSITIVE DIFFERENTIAL YES; Platelet Count 174 K/mm3 (150-450); RBC Distribution Width CV 14.2 % (11.6-14.6); Red Blood Count 4.57 M/mm3 (4.6-6.2); White Blood Count 10.6 K/mm3 (4.4-11.0)
[2021-06-19 07:41] LABS: Differential Indicated SCAN CRITERIA MET
[2021-06-19 07:44] LABS: Differential Comment SCANNED
[2021-06-19 07:54] LABS: Anion Gap 8 (5-15); BUN 13 mg/dL (7-18); BUN/Creat Ratio 22.4 RATIO (10-20); Chloride 99 mmol/L (98-107); Creatinine, Serum 0.58 mg/dL (0.70-1.30); EST Glomerular Filtration Rate 158 mL/min (>60); Est Glom Filt Rate - Afr Amer 192 mL/min (>60); Estimated Creatinine Clearance 131.08 ml/min; Glucose 120 mg/dL (74-106); Potassium 4.2 mmol/L (3.5-5.1); Sodium Level 135 mmol/L (136-145)
[2021-06-19] MEDS: Tamsulosin HCl 0.4 MG Capsule 0.8 MG PO (10:14)
[2021-06-19] MEDS: Enoxaparin 40 MG/0.4 ML Syringe SC (10:15)
--- NOTE | 2021-06-19 12:41 | PN.CC_ITS ---
Assessment & Plan Assessment/Plan (1) Acute respiratory failure with hypoxia: (2) Pneumonia due to COVID-19 virus: (3) Acute hypotension: (4) Dehydration: PLAN: RECOMMENDATIONS: 1. Continue to wean supplemental oxygen to maintain saturations at or above 90%. 2. Continue Decadron to complete 10-day treatment course. 3. Continue Lovenox as ordered. 4. Intermittent use of diuretics to maintain euvolemic state. 5. Encourage incentive spirometer use and mobilize patient as tolerated. 6. Walking oximetry with potential discharge IMPRESSIONS: 1. Acute hypoxic respiratory failure secondary to COVID-19 The patient's oxygenation status is slowly improving. He is currently doing well on nasal cannula supplemental O2. Continue to wean as tolerated to maintain saturations at or above 90%. Continue Decadron to finish 10-day treatment course. Although the patient was started on baricitinib, his POA refused the medication after 3 days of therapy. Continue intermittent use of diuretics to maintain euvolemic state. Encourage incentive spirometer use and mobilize patient as tolerated. Potential discharge if patient is able to ambulate on 6 L or less. Patient should follow-up in our office in 4 to 6 weeks to see if oxygen can be discontinued. Did discuss with the mother about the appropriate use of supplemental oxygen. 2. History of VSD/Down syndrome Complicates care, management, recovery and prognosis. Continue home medications as indicated. This note was generated with [employer] dictation software. It may contain incorrect words, spelling, and punctuation that were not noted in checking the note before signing. Subjective Subjective Patient did okay overnight. No acute issues were reported. Patient has been tolerating nasal cannula oxygen. Patient has had some dyspnea on exertion per the mother. Patient did not report any pain. Objective Data Objective Data Vital Signs: Vital Signs Temp Pulse Resp BP Pulse Ox 36.9 C 64 20 H 95/56 L 90 06/19/21 10:05 06/19/21 10:05 06/19/21 10:06/19/21 10:06/19/21 10:35 Oxygen Flow Rate (L/min) [ 5 AMBULATING with Oxygen #1] Oxygen Flow Rate (L/min) [ 0 AMBULATING on Room Air] Oxygen Flow Rate (L/min) [At 0 REST on Room Air] Oxygen Flow Rate (L/min) 5 Oxygen Delivery Method Nasal Cannula Weight: 59.5 kg Body Mass Index (BMI) 26.4 Intake & Output: Intake and Output for Last 24 Hours 06/17/21 06/18/21 06/19/21 23:59 23:59 23:59 Intake Total 1000 / 1000 500 / 500 200 / 200 Output Total 1000 / 1000 850 / 850 500 / 500 Balance 0 / 0 -350 / -350 -300 / -300 Lab / Micro Data Result Diagrams: 06/19/21 07:04 06/19/21 07:04 Labs: Laboratory Results - last 24 hr 06/19/21 07:04: WBC 10.6, RBC 4.57 L, Hgb 14.8, Hct 43.2, MCV 94.5 H, MCH 32.4 H , MCHC 34.3, RDW Std Deviation 49.0 H, RDW Coeff of Annelise 14.2, Plt Count 174, MPV 10.3, Immature Gran % (Auto) 2.900 H, Neut % (Auto) 82.2 H, Lymph % (Auto) 4.4 L , [place] % (Auto) 10.2 H, Eos % (Auto) 0.0, Baso % (Auto) 0.3, Absolute Neuts (auto) 8.7 H, Absolute Lymphs (auto) 0.46 L, Nucleated RBC % 0, Differential Comment SCANNED 06/19/21 07:04: Sodium 135 L, Potassium 4.2, Chloride 99, Carbon Dioxide 28.0, Anion Gap 8, BUN 13, Creatinine 0.58 L, Estim Creat Clear Calc 131.08, Est GFR (MDRD) Af Amer 192, Est GFR (MDRD) Non-Af 158, BUN/Creatinine Ratio 22.4 H, Glucose 120 H, Calcium 8.0 L Micro: Microbiology 06/09/21 11:30 Blood Culture (Wb) - Left Hand Blood Culture - Final No growth in 5 days. 06/09/21 11:35 Blood Culture (Wb) - Arm Left Blood Culture - Final No growth in 5 days. Physical Exam Const no apparent distress Constitutional Narrative: MRDD appearance. Sitting comfortably supine in chair. General Appearance: cooperative HEENT head/scalp atraumatic and moist oral mucous membranes Eyes PERRL and EOMs intact bilaterally Neck supple General: trachea midline Resp no use of accessory muscles Auscultation: diminished lung sounds; Negative for rales, rhonchi or wheezes Cardio regular rate and regular rhythm GI normal to inspection, nondistended, normoactive bowel sounds Extremity no clubbing, cyanosis or edema Skin no rashes or lesions noted Neuro no focal motor deficits Psych Mood & Affect: flat affect Charges/Coding Visit Charges Inpatient E&M: 01747 Subs Hosp L2
[2021-06-19] MEDS: Furosemide 20 MG Tablet PO (13:21)
--- NOTE | 2021-06-19 14:10 | PCM.DC ---
Discharge Instructions Diet Discharge Diet: No restrictions Activity Discharge Activity: Return to Normal Activity Dressing / Incision Call your doctor if you observe: Fever of 101 or Higher, Shortness of breath, Dizziness, Fainting spells, Swelling in the ankles, Chest pain and Increased palpitations (irregular heartbeat) Follow Up Care Test Results: Test results from this visit will be discussed in further detail at your follow-up appointment, if applicable. Discharge Plan Admission Admit Date/Time: 06/09/21 16:22 Attending Provider: Prince Rose Primary Care Provider: Sunday Mcclelland Consulting Providers: Segun Delgado ; Shane Fitzgerald ; Mar Hays NP ; Juan Pablo Gómez Discharge Orders/Prescriptions Prescriptions: Continued levothyroxine 88 mcg tablet 88 mcg PO DAILY RF: 0 simvastatin 20 mg tablet 20 mg PO DAILY RF: 0 bupropion HCl 150 mg tablet extended release 24 hr 150 mg PO DAILY RF: 0 cholecalciferol (vitamin D3) [Vitamin D3] 50 mcg (2,000 unit) Tablet 50 mcg PO DAILY RF: 0 tamsulosin [Flomax] 0.4 mg capsule 0.4 mg PO DAILY 30 Days Qty: 30 RF: 0 Discontinued cefdinir 300 mg capsule 300 mg PO BID 5 Days Qty: 10 RF: 0 Referrals / Follow Up: Sunday Mcclelland MD [Primary Care Provider] - Within 1 Week Disposition Disposition (needs filled in before D/C Order can be placed): Home, Self Care
--- NOTE | 2021-06-19 14:19 | PCM.DC.SUM ---
Providers Date of Admission: 06/09/21 Primary Care Physician: Dr. Sunday Mcclelland MD Consultations 06/10/21 08:57 Consult: Repair Service Dispatcher / Pulmonary Medicine Routine Consulting Provider: Pulmonary Medicine emelina Vernon Reason for Consult: respiratory failure EMERGENT Consult: No Notified: Yes Date Notified: 06/10/21 Time Notified: 08:58 Method of Notification: Verbal 06/11/21 19:05 Consult: Infectious Disease Routine Consulting Provider: Juan Pablo Gómez Reason for Consult: COVID-19 EMERGENT Consult: No Notified: Yes Date Notified: 06/12/21 Time Notified: 07:33 Method of Notification: Answering Service Reason For Visit: hypoxia Diagnosis Discharge Diagnosis (1) Acute respiratory failure with hypoxia: Status: Acute Code(s): J96.01 - Acute respiratory failure with hypoxia (2) Pneumonia due to COVID-19 virus: Status: Acute Code(s): U07.1 - COVID-19; J12.82 - Pneumonia due to coronavirus disease 2019 (3) Acute hypotension: Status: Acute Code(s): I95.9 - Hypotension, unspecified (4) Dehydration: Status: Resolved Code(s): E86.0 - Dehydration Medications at Discharge Home Medications bupropion HCl 150 mg PO DAILY 06/05/21 cholecalciferol (vitamin D3) [Vitamin D3] 50 mcg PO DAILY 06/05/21 levothyroxine 88 mcg PO DAILY 06/05/21 simvastatin 20 mg PO DAILY 06/05/21 tamsulosin [Flomax] 0.4 mg PO DAILY 30 Days #30 cap 06/06/21 Hospital Course Operations None Procedures None Summary of Care Provided Minutes Spent on Discharge: 40 Hospital Course: Per HPI: RAMYA GUILLERMO, is a 50 M with Down syndrome who presents with shortness of breath, exertional dyspnea and feeling unwell, generalized fatigue and malaise for the last several days. Presented to the hospital with similar symptoms a few days earlier and was found to be hypotensive and to have bilateral lung infiltrates on chest x-ray. Was diagnosed with COVID-19 infection at that time. Patient has not received vaccine. Hospital Course: 1. Acute hypoxic respiratory failure secondary to COVID-19 [id number] male with history of Down syndrome presents to the hospital with shortness of breath. He tested positive for Covid on 06/04/2021. Do recommend that he complete a 20-day quarantine, he is currently on 5 L nasal cannula and only needs 5 L to ambulate as well. He has completed remdesivir and Decadron. His mother did decline baricitinib treatment secondary to its experimental nature. I discussed with her the plan for discharge today and she expressed understanding of the risk benefits going home and would like to take him home today. I did discuss with her that Covid is unpredictable and if he does get worse from a respiratory standpoint to bring him back to the hospital. Continue to recommend vaccination for him and his family. 2. Hyperlipidemia, hypothyroidism, anxiety, depression, BPH, Down syndrome all chronic medical conditions which complicate his care. His home medications were continued where appropriate Physical Exam Const alert, oriented x3 and no apparent distress General Appearance: cooperative HEENT normocephalic and moist oral mucous membranes Eyes PERRL, EOMs intact bilaterally and conjunctivae normal Neck supple and no JVD Resp normal respiratory effort, no retractions, no use of accessory muscles and clear to auscultation bilaterally Auscultation: diminished lung sounds; Negative for crackles, rales, rhonchi or wheezes Cardio regular rate, regular rhythm, S1 normal heart sound, S2 normal heart sound and no murmurs GI soft to palpation, non-tender and non-distended; Negative for hepatosplenomegaly Extremity no clubbing, cyanosis or edema Skin no rashes or lesions noted Neuro no focal motor deficits and no sensory deficits noted Psych affect normal Appearance: appropriate Weight / BMI Weight Weight: 131 lb 2.801 oz Body Mass Index (BMI) 26.4 ABG / Lab / Microbiology Data Result Diagrams: 06/19/21 07:04 06/19/21 07:04 Laboratory: Laboratory Results - last 24 hr 06/19/21 07:04: WBC 10.6, RBC 4.57 L, Hgb 14.8, Hct 43.2, MCV 94.5 H, MCH 32.4 H, MCHC 34.3, RDW Std Deviation 49.0 H, RDW Coeff of Annelise 14.2, Plt Count 174, MPV 10.3, Immature Gran % (Auto) 2.900 H, Neut % (Auto) 82.2 H, Lymph % (Auto) 4.4 L, Thayer % (Auto) 10.2 H, Eos % (Auto) 0.0, Baso % (Auto) 0.3, Absolute Neuts (auto) 8.7 H, Absolute Lymphs (auto) 0.46 L, Nucleated RBC % 0, Differential Comment SCANNED 06/19/21 07:04: Sodium 135 L, Potassium 4.2, Chloride 99, Carbon Dioxide 28.0, Anion Gap 8, BUN 13, Creatinine 0.58 L, Estim Creat Clear Calc 131.08, Est GFR (MDRD) Af Amer 192, Est GFR (MDRD) Non-Af 158, BUN/Creatinine Ratio 22.4 H, Glucose 120 H, Calcium 8.0 L Microbiology: Microbiology 06/09/21 11:30 Blood Culture (Wb) - Left Hand Blood Culture - Final No growth in 5 days. 06/09/21 11:35 Blood Culture (Wb) - Arm Left Blood Culture - Final No growth in 5 days. D/C Instructions Discharge Diet: No restrictions Call your doctor if you observe: Fever of 101 or Higher, Shortness of breath, Dizziness, Fainting spells, Swelling in the ankles, Chest pain and Increased palpitations (irregular heartbeat) Meaningful Use Info Meaningful Use Diagnoses (Choose all that apply): None applicable Discharge Plan Admission Admit Date/Time: 06/09/21 16:22 Attending Provider: Prince Rose Primary Care Provider: Sunday Mcclelland Consulting Providers: Segun Delgado ; Shane Fitzgerald ; Mar Hays NP ; Juan Pablo Gómez Discharge Orders/Prescriptions Prescriptions: Continued levothyroxine 88 mcg tablet 88 mcg PO DAILY RF: 0 simvastatin 20 mg tablet 20 mg PO DAILY RF: 0 bupropion HCl 150 mg tablet extended release 24 hr 150 mg PO DAILY RF: 0 cholecalciferol (vitamin D3) [Vitamin D3] 50 mcg (2,000 unit) Tablet 50 mcg PO DAILY RF: 0 tamsulosin [Flomax] 0.4 mg capsule 0.4 mg PO DAILY 30 Days Qty: 30 RF: 0 Discontinued cefdinir 300 mg capsule 300 mg PO BID 5 Days Qty: 10 RF: 0 Referrals / Follow Up: Sunday Mcclelland MD [Primary Care Provider] - Within 1 Week Disposition Disposition (needs filled in before D/C Order can be placed): Home, Self Care Charges/Coding Visit Charges Inpatient E&M: 64086 Disch Hosp
--- NOTE | 2021-06-19 15:52 | CASEMGMT ---
Pt qualifies for home O2, faxed referral at this time. TC to [facility], spoke with Elfego who is aware of referral.
--- NOTE | 2021-06-20 16:45 | CASEMGMT ---
RN CM Discharge Follow Up Phone Call: JENNIEE: 14 Strata:4 Call Date: 06/20/21 Discharge Date: 06/19/21 Time of Call:1644 Duration:<1 min Admitting Dx:COVID 19 SUHAS BYRD attempted to complete follow up phone call after recent hospitalization. No message left on unidentified voicemail.
== END 2021-06-19 17:43 | disposition home or self-care (01) | DRG 177 ==
LOC: ED 12:57 → MS3 06-10 07:24
PROVIDERS: Internal Medicine Critical Care Medicine; Internal Medicine Infectious Disease; Admitting Provider Internal Medicine; Emergency Provider Emergency Medicine; PCP Family Medicine; Visit Provider Family Medicine
DX: U07.1 COVID-19 (principal); J12.82 Pneumonia due to coronavirus disease 2019; J96.01 Acute respiratory failure with hypoxia; Q90.9 Down syndrome, unspecified; I95.9 Hypotension, unspecified; E86.0 Dehydration; E03.9 Hypothyroidism, unspecified; E78.5 Hyperlipidemia, unspecified; F32.9 Major depressive disorder, single episode, unspecified; F41.9 Anxiety disorder, unspecified; N40.0 Benign prostatic hyperplasia without lower urinary tract symptoms; Z86.73 Personal history of transient ischemic attack (TIA), and cerebral infarction without residual deficits; Z79.899 Other long term (current) drug therapy
CPT/HCPCS: 36415; 71045; 80048; 80053; 82728; 83605; 83615; 83735; 84100; 84484; 85025; 85027; 85379; 85610; 86140; 87040; 93005; 94660; 94762; 99285; J7030; J7040; J7050; A4216

== ENCOUNTER → 2021-07-05 09:31 | Outpatient (CLI) | payer MEDICARE, SELFPAY ==
[2021-07-05 11:23] LABS: Anion Gap 5 (5-15); BUN 11 mg/dL (7-18); BUN/Creat Ratio 12.7 RATIO (10-20); Calcium,Total 9.1 mg/dL (8.5-10.1); Chloride 105 mmol/L (98-107); Creatinine, Serum 0.86 mg/dL (0.70-1.30); EST Glomerular Filtration Rate 100 mL/min (>60); Est Glom Filt Rate - Afr Amer 121 mL/min (>60); Glucose 101 mg/dL (74-106); PSA,Total- Diagnostic 0.12 ng/mL (0.0-4.0); Sodium Level 141 mmol/L (136-145)
== END ==
PROVIDERS: PCP Family Medicine; Referring Provider Urology; Visit Provider Urology
DX: N40.1 Benign prostatic hyperplasia with lower urinary tract symptoms (principal)
CPT/HCPCS: 36415; 80048; 84153

== ENCOUNTER → 2021-09-12 10:09 | Outpatient (CLI) | payer MEDICARE, SELFPAY | PROVIDERS: PCP Family Medicine; Referring Provider Urology; Visit Provider Urology | DX: N40.1 Benign prostatic hyperplasia with lower urinary tract symptoms (principal) | CPT/HCPCS: 87086 ==

== ENCOUNTER 2021-09-26 12:19 | Day surgery (SDC) | payer MEDICARE, SELFPAY ==
[2021-09-26] VITALS (9 sets, daily range): BP systolic 87–111; BP diastolic 52–70; PULSE 64–86; RESP 16; TEMP 35.9–36.1; O2SAT 94–100; BMI 26.2
[2021-09-26] MEDS: Lactated Ringers 1,000 ML 15 ML IV (12:25)
--- NOTE | 2021-09-26 16:20 | PCM.HP.STD ---
HPI - General HPI Narrative RAMYA GUILLERMO, is a 51 M who presents for a diagnositic cysto for gross hematuria [facility] Medical History (Updated 09/24/21 @ 11:06 by Lulu White) Anxiety Congenital heart disease Depression Down's syndrome History of echocardiogram Loss of consciousness Non-smoker Stroke, hemorrhagic Thyroid disease Wears glasses Wears hearing aid Home Medications cholecalciferol (vitamin D3) [Vitamin D3] 50 mcg PO DAILY 06/05/21 [History Last Taken Unknown] levothyroxine 88 mcg PO DAILY 06/05/21 [History Last Taken 09/26/21] simvastatin 20 mg PO DAILY 06/05/21 [History Last Taken Unknown] Zyrtec 10 mg PO DAILY 09/24/21 [History Last Taken Unknown] calcium 600 mg PO DAILY 09/24/21 [History Last Taken Unknown] fluticasone propionate [Flonase Allergy Relief] 1 spray INTRANASAL DAILY PRN 09/24/21 [History Last Taken Unknown] magnesium 250 mg PO DAILY 09/24/21 [History Last Taken Unknown] tamsulosin [Flomax] 0.4 mg PO BID 09/24/21 [History Last Taken 09/26/21] melatonin 5 mg PO QHS 09/26/21 [History Last Taken Unknown] Allergy/AdvReac Type Severity Reaction Status Date / Time No Known Allergies Allergy Verified 09/26/21 12:24 Family History (Updated 06/06/21 @ 07:[address] Laila Bergman MD) Father No problems noted. Mother No problems noted. Surgical History (Updated 09/24/21 @ 11:03 by Lulu White) Hx of cholecystectomy S/P VSD repair Social History (Updated 06/06/21 @ 07:[address] Laila Bergman MD) household members: family Smoking Status: Never smoker alcohol intake: never substance use type: does not use Vital Signs Vital Signs Vital Signs: 09/26/21 13:05 Temperature 96.7 F L Temperature Source Temporal Pulse Rate 84 Respiratory Rate 16 Respiratory Pattern Normal Blood Pressure 111/70 Blood Pressure Mean 83 Blood Pressure Source Monitor Blood Pressure Position Semi-Fowlers Blood Pressure Location Left Arm Pulse Ox 98 Oxygen Delivery Method Room Air Weight Weight: 57 kg Body Mass Index (BMI) 26.2 Results Lab / Micro Data Micro: Microbiology 09/25/21 11:17 Interface Orders SARS-CoV-2 Antigen (Rapid) - Final
--- NOTE | 2021-09-26 16:21 | DCINST_ITS ---
Discharge Instructions Diet Discharge Diet: No restrictions Activity Discharge Activity: Return to Normal Activity and May Not Drive (while taking narcotic pain medications.) Dressing / Incision Call your doctor if you observe: Fever of 101 or Higher Follow Up Care Please Follow Up With: Coy Drake MD When: Call [phone] for an appointment Test Results: Test results from this visit will be discussed in further detail at your follow-up appointment, if applicable. Discharge Plan Admission Primary Reason for Your Visit: Cystoscopy. Attending Provider: Coy Drake Primary Care Provider: Sunday Mcclelland Discharge Orders/Prescriptions Prescriptions: Continued levothyroxine 88 mcg tablet 88 mcg PO DAILY RF: 0 simvastatin 20 mg tablet 20 mg PO DAILY RF: 0 cholecalciferol (vitamin D3) [Vitamin D3] 50 mcg (2,000 unit) Tablet 50 mcg PO DAILY RF: 0 calcium 600 mg Capsule 600 mg PO DAILY RF: 0 magnesium 250 mg Tablet 250 mg PO DAILY RF: 0 fluticasone propionate [Flonase Allergy Relief] 50 mcg/actuation [place],Suspension 1 spray INTRANASAL DAILY PRN (Reason: ALLERGIES) RF: 0 Zyrtec 10 mg Capsule 10 mg PO DAILY RF: 0 tamsulosin [Flomax] 0.4 mg capsule 0.4 mg PO BID RF: 0 melatonin 5 mg Tablet 5 mg PO QHS RF: 0 Referrals / Follow Up: Sunday Mcclelland MD [Primary Care Provider] - Disposition Disposition (needs filled in before D/C Order can be placed): Home, Self Care
[2021-09-26] MEDS: Lidocaine Jelly 2% 20 ML Syringe (URO-JET) 1 APPLIC (16:25)
--- NOTE | 2021-09-26 16:35 | PCM.OPRPT ---
Report of Operation Date of Procedure: 09/26/21 Pre-Operative Diagnosis: Gross hematuria history of BPH with obstruction or voiding dysfunction Post-Operative Diagnosis: Same Surgery/Procedure Performed:: Cystoscopy diagnostic left retrograde pyelogram, and right retrograde pyelogram and interpretation of images Description of Surgical Findings:: 51-year-old male who has a history of Down syndrome comes into the office had gross hematuria I will get a taken back to the operating room for cystoscopy and bilateral retrograde pyelograms CT scan was only remarkable for very thickened bladder. Patient was taken back to the operating room at the smooth induction of general anesthesia he was placed in dorsolithotomy position. The penis and testicles were prepped and draped in usual sterile fashion went into the urethra with a 19 [place] rigid cystourethroscope the entire length of the urethra was normal the sphincter was intact the prostate really did not have any significant hypertrophy just some mild BPH tissue no median lobe no obstruction wide open channel from the room inside the bladder there are no tumors or stones within the bladder the bladder was normal slightly thickened I then cannulated the right ureter orifice with a Pollick catheter and a Glidewire performed a retrograde pyelogram this was normal, and then performed a retrograde pyelogram on the left side and this was also normal. I then drained the bladder and went and spoke to the family regarding the findings basically the essential findings were normal bladder prostate and retrograde pyelograms source of hematuria is unclear but he had negative work-up. Surgeon: linda Type of Anesthesia: General Admit VTE Documentation VTE Present on Admission: No VTE Mechan Device Prophylaxis: SCD's VTE Pharm Prophylaxis ordered?: No
== END 2021-09-26 23:59 | disposition home or self-care (01) ==
LOC: SDC 12:20 → AC 12:21
PROVIDERS: PCP Family Medicine; Referring Provider Urology; Visit Provider Urology
PROC: (CPT 52332; principal; 2021-09-26 14:25)
DX: R31.0 Gross hematuria (principal); F41.9 Anxiety disorder, unspecified; F32.A Depression, unspecified; Q90.9 Down syndrome, unspecified; E07.9 Disorder of thyroid, unspecified; Z79.899 Other long term (current) drug therapy; Q24.9 Congenital malformation of heart, unspecified; N40.0 Benign prostatic hyperplasia without lower urinary tract symptoms
CPT/HCPCS: 52005; 76000; 87426; C9803; J7120; C1769; J2405

== ENCOUNTER 2021-12-05 01:18 | Inpatient (IN) | payer MEDICARE, SELFPAY ==
[2021-12-05] VITALS (22 sets, daily range): BP systolic 80–113; BP diastolic 50–82; PULSE 60–81; RESP 14–18; TEMP 36.1–37.1; O2SAT 93–100; BMI 26.2; BMI 24.5
--- NOTE | 2021-12-05 01:33 | RAD_ITS ---
EXAM: XR CHEST, 1 VIEW CLINICAL INDICATION: fall TECHNIQUE: Frontal view of the chest. This report was created using [employer] report generation technology. COMPARISON: 06/09/2021. FINDINGS: LUNGS AND PLEURAL SPACES: Unremarkable. No consolidation or edema. No pneumothorax. No effusion. HEART: Unremarkable. Cardiac silhouette not enlarged. MEDIASTINUM: Central airways and mediastinal contour are unremarkable. BONES/JOINTS: Unremarkable. SOFT TISSUES: Unremarkable. RAD/Chest 1 View (Portable) IMPRESSION: No radiographic evidence of acute cardiopulmonary disease. Electronically Signed: Davey Spencer MD at 3:17 EDT ,
--- NOTE | 2021-12-05 01:33 | CT_ITS ---
STUDY: CT ABDOMEN AND PELVIS WITH CONTRAST REASON FOR EXAM: Male, 51 years old. Trauma RADIATION DOSAGE (If Supplied By Facility): CTDIvol = ( 8.18 ) mGy, DLP = ( 649.36 ) mGycm TECHNIQUE: Transaxial images were obtained from the dome of the diaphragm to the symphysis pubis without oral contrast. IV 100mL Isovue-300 was administered. Sagittal and coronal images were reconstructed. Individualized dose optimization techniques were used for this CT. COMPARISON: 06/05/2021 FINDINGS: Mild bibasilar atelectasis. The visualized portions of the heart are within normal limits. There is decreased attenuation of the liver consistent with steatosis. Normal gallbladder and extrahepatic biliary system. Normal spleen. Normal pancreas. Normal bilateral adrenal glands. Normal right kidney. Normal left kidney. Normal visualized stomach. Normal small intestine. Normal colon. The appendix is visualized and appears normal. Normal abdominal aorta. Normal inferior vena cava. Normal retroperitoneum. Unchanged circumferential urinary bladder wall thickening and mild bilateral hydroureteronephrosis. Normal visualized prostate gland. There is a small umbilical hernia containing fat. Normal thoracolumbar vertebral alignment. CT/Abdomen/Pelvis W IV Cont ONLY IMPRESSION: No acute abnormal finding in the abdomen or pelvis. Mild bibasilar atelectasis. Electronically Signed: Darin Chun MD at 3:53 EDT ,
--- NOTE | 2021-12-05 01:33 | CT_ITS ---
STUDY: CT CERVICAL SPINE WITHOUT CONTRAST REASON FOR EXAM: Male, 51 years old. Trauma RADIATION DOSAGE (If Supplied By Facility): CTDIvol = ( 17.58 ) mGy, DLP = ( 326.02 ) mGycm TECHNIQUE: High resolution transaxial imaging was performed without contrast material. Sagittal and coronal images were reconstructed. Individualized dose optimization techniques were used for this CT. COMPARISON: None FINDINGS: Normal craniovertebral junction. Normal anterior atlantoaxial articulation. Normal odontoid process. Normal cervical lordosis. Normal vertebral bodies and posterior osseous elements. C2-T1: Normal endplates. Normal disc height and morphology. Normal central canal and intervertebral neuroforamina. Normal visualized soft tissue structures. Infiltrates of both pulmonary apices. CT/Spine Cervical without Contras IMPRESSION: Normal unenhanced CT examination of the cervical spine. Bilateral pulmonary apex infiltrates. Electronically Signed: Darin Chun MD at 3:26 EDT ,
--- NOTE | 2021-12-05 01:33 | CT_ITS ---
EXAM: CT HEAD WITHOUT INTRAVENOUS CONTRAST CLINICAL INDICATION: trauma TECHNIQUE: Multiple axial images were obtained of the head without intravenous contrast. CTDIvol = ( 44.99 ) mGy, DLP = ( 779.24 ) mGycm This CT exam was performed using one or more of the following dose reduction techniques: automated exposure control, adjustment of the mA and/or kV according to patient size, and/or use of iterative reconstruction technique. This report was created using [employer] report generation technology. COMPARISON: None. FINDINGS: BRAIN AND EXTRA-AXIAL SPACES: Old insult involving the right frontal lobe and cephalization and extra-axial dilatation of the right lateral ventricle. The midline shift. No acute hemorrhage or acute infarct. No mass or mass effect. Posterior fossa structures are unremarkable. No hydrocephalus. Basal cisterns are patent. BONES/JOINTS: Unremarkable. No discrete lytic or blastic abnormalities. SINUSES: Unremarkable as visualized. Clear. MASTOID AIR CELLS: Unremarkable. Clear. ORBITS: Visualized globes, extraocular muscles, optic nerves and retrobulbar fat appear unremarkable. CT/Brain/Head without Contrast IMPRESSION: No acute intracranial pathology. Electronically Signed: Davey Spencer MD at 2:57 EDT ,
--- NOTE | 2021-12-05 01:34 | EKG12_ITS ---
Test Reason : RUMA Blood Pressure : / mmHG Vent. Rate : 065 BPM Atrial Rate : 065 BPM P-R Int : 168 ms QRS Dur : 106 ms QT Int : 430 ms P-R-T Axes : 044 035 033 degrees QTc Int : 447 ms Normal sinus rhythm Incomplete right bundle branch block Nonspecific T wave abnormality Abnormal ECG Confirmed by MATEO PARKER, SHAYNE ([id number]), video effects editor JOSE ARITA ([id number]) on 12/06/2021 9:40:12 AM Referred By: NEO Confirmed By:SHAYNE GALINDO MD
--- NOTE | 2021-12-05 01:37 | EDS_ITS ---
HPI History of Present Illness Chief Complaint: Syncope Detail of Chief Complaint: Syncope and fall down steps Informant: patient Narrative Narrative: Patient presents to the emergency department with his parents. Patient has history of Down's syndrome. Mother states that she heard him in the bathroom and she was standing at the bottom of the steps that he was at the top of the steps when she went to check on him. It was noted that he passed out and fell head over heels down approximately 10 carpeted steps. Mother states she really could not feel a pulse and he had slow respirations and he was unresponsive for about a minute. He did complain to her of left arm pain. Patient has remote history of a intracranial hemorrhage. Patient has prior VSD repair. He has had 1 other episode of syncope. Mother states he has been havin g some issues urinating and sees a urologist and does take Flomax. She thought he was having some trouble urinating throughout the day. Prior similar symptoms: Yes PFSH PFSH Medical History (Updated 12/05/21 @ 04:[address] Cassy Obregon DO) Anxiety Congenital heart disease Depression Down's syndrome History of echocardiogram Loss of consciousness Non-smoker Stroke, hemorrhagic Thyroid disease Wears glasses Wears hearing aid Home Medications cholecalciferol (vitamin D3) [Vitamin D3] 50 mcg PO DAILY 06/05/21 [History Last Taken Unknown] levothyroxine 88 mcg PO DAILY 06/05/21 [History Last Taken 09/26/21] simvastatin 20 mg PO DAILY 06/05/21 [History Last Taken Unknown] calcium 600 mg PO DAILY 09/24/21 [History Last Taken Unknown] fluticasone propionate [Flonase Allergy Relief] 1 spray INTRANASAL DAILY PRN 09/24/21 [History Last Taken Unknown] magnesium 250 mg PO DAILY 09/24/21 [History Last Taken Unknown] tamsulosin [Flomax] 0.4 mg PO BID 09/24/21 [History Last Taken 09/26/21] melatonin 5 mg PO QHS 09/26/21 [History Last Taken Unknown] Allergy/AdvReac Type Severity Reaction Status Date / Time latex Allergy PT UNSURE Verified 12/05/21 01:22 OF REACTION Penicillins [PCN] Allergy Rash Verified 12/05/21 01:22 Family History (Updated 06/06/21 @ 07:[address] Laila Bergman MD) Father No problems noted. Mother No problems noted. Surgical History (Updated 09/24/21 @ 11:03 by Lulu White) Hx of cholecystectomy S/P VSD repair Social History (Updated 06/06/21 @ 07:[address] Laila Bergman MD) household members: family Smoking Status: Never smoker alcohol intake: never substance use type: does not use ROS ROS ED ROS Narrative Syncope Constitutional Constitutional ED: Reports systems reviewed and no addt'l complaints, except as documented; Denies body ache(s), change in weight or chills Eyes Eyes: Denies acute decrease in peripheral vision, change in vision, double vision or loss of vision ENT ENT ED: Reports none; Denies ear pain, lip swelling, loss taste/smell, neck pain, otalgia or sore throat Cardiovascular Cardiovascular: Reports none; Denies abdominal pain, chest pain with activity, leg edema, lightheadedness, palpitations, rapid heart rate or syncope Respiratory/Chest Respiratory/Chest: Reports none; Denies change in mental status, dry cough, dyspnea, hemoptysis, shortness of breath at rest or shortness of breath with exertion Gastrointestinal Gastrointestinal: Reports none and abdominal pain; Denies change in stool character, diarrhea, hematemesis, hematochezia, melena, rectal bleeding or vomiting Genitourinary Genitourinary ED: Reports none; Denies abdominal discomfort, anuria, dysuria, genital pain or polyuria Musculoskeletal Musculoskeletal: Reports none and other Details: Left arm pain ; Denies arthralgias, back pain, difficulty walking, extremity pain, muscle weakness or myalgias Integumentary Reports none; Denies abscess or rash Neurologic Neurologic: Reports none; Denies abnormal gait, confusion, focal weakness, frequent falls, headache(s), loss of vision, numbness, paresthesias, radicular pain, vertigo or weakness Psychiatric Psychiatric: Reports systems reviewed and no addt'l complaints, except as documented and none; Denies behavioral changes, confusion, difficulty concentrating, hallucinations, suicidal ideation, tactile hallucinations or visual hallucinations Endocrine Endocrinology: Denies none, cold intolerance, excessive sweating, fatigue or heat intolerance Hematologic/Lymphatic Hematologic/Lymphatic: Reports none; Denies anemia, easy bleeding or easy bruising Allergic/Immunologic Allergic/Immunologic ED: Denies as per HPI, none, lip swelling, mouth swelling, throat swelling, tongue swelling or hives EXAM Physical Exam Const Vital Signs: 12/05/21 01:19 12/05/21 01:38 Temperature 97.1 F L Temperature Source Temporal Pulse Rate 73 Respiratory Rate 14 Respiratory Pattern Normal Blood Pressure 97/82 H Blood Pressure Mean 87 Pulse Ox 97 Oxygen Delivery Method Room Air Positive well nourished and well developed General Appearance ED: well developed and NAD HEENT Reports TM's clear and moist mucous membranes normocephalic and atraumatic; Negative for trauma or tenderness Tympanic Membrane ED: Yes TM's clear Eyes PERRL and EOMs intact bilaterally General Eye ED: Negative for pale conjunctiva or scleral icterus Neck no lymphadenopathy, supple and no JVD General: Negative for tenderness Chest Wall inspection of chest normal and palpation of chest normal Chest: Negative for tenderness Resp normal respiratory effort and clear to auscultation bilaterally Effort and Inspection: Negative for respiratory distress or pain with movement Auscultation: Negative for rhonchi, wheezes or diminished lung sounds Cardio regular rate, regular rhythm, S1 normal heart sound, S2 normal heart sound and no murmurs Peripheral Pulses: pulses 2+ throughout GI normal to inspection, nondistended, normoactive bowel sounds, soft to palpation, non-distended and no masses GI Narrative: Patient with some diffuse abdominal tenderness on exam. There are some guarding. There is no rebound, rigidity, or peritoneal signs. Back/Spine no CVA tenderness and no thoracic nor lumbar tenderness Extremity Extremity Narrative: Left upper extremity-no obvious deformity. Has some mild diffuse tenderness over the forearm and wrist as well as the distal humerus. He is neurovascularly intact. General Extremety ED: Negative for edema General Extremity: Negative for edema Neuro oriented x3, CN's II-XII intact bilaterally, no sensory deficits noted and gait normal Sensorium / Orientation: awake, alert, oriented to person, oriented to place and oriented to time Motor Exam: strength 5/5 throughout and strength abnormal Psych mental status grossly normal Skin no rashes or lesions noted and no wounds MDM MDM MDM Narrative Medical decision making narrative: IV line established on arrival. Patient placed on a inventory representative. He had a few intermittent episodes of bradycardia with heart rate down to the 20s to 30s and he was however relatively asymptomatic with this. Lab work-up was unremarkable. CT scan of the brain and C-spine were unremarkable. CT scan of the abdomen unremarkable. Chest x-ray was unremarkable. Case will be discussed with hospitalist evaluate patient for admission for diagnosis of syncope and bradycardia. Lab Data Attestation: I reviewed the patient's lab results. Labs: Laboratory Results - last 24 hr 12/05/21 12/05/21 01:26 01:26 WBC 10.3 RBC 4.61 Hgb 15.2 Hct 43.4 MCV 94.1 H MCH 33.0 H MCHC 35.0 RDW Std Deviation 50.6 H RDW Coeff of Annelise 14.7 H Plt Count 194 MPV 8.9 Immature Gran % (Auto) 0.300 Neut % (Auto) 77.5 H Lymph % (Auto) 12.7 L [place] % (Auto) 6.8 Eos % (Auto) 1.7 Baso % (Auto) 1.0 Absolute Neuts (auto) 8.0 H Absolute Lymphs (auto) 1.31 Nucleated RBC % 0 Sodium 140 Potassium 3.8 Chloride 108 H Carbon Dioxide 27.0 Anion Gap 5 BUN 20 H Creatinine 1.18 Estim Creat Clear Calc 60.84 Est GFR (MDRD) Af Amer 84 Est GFR (MDRD) Non-Af 70 BUN/Creatinine Ratio 16.9 Glucose 112 H Calcium 9.1 Troponin I High Sens 8 Radiography Chest X-Ray - ED: 1 View Diagnostic Testing: Clinical Impression(s) from Imaging Studies Abdomen/Pelvis CT 12/05/21 01:33 IMPRESSION: No acute abnormal finding in the abdomen or pelvis. Mild bibasilar atelectasis. Electronically Signed: Darin Chun MD at 3:53 EDT , Brain CT 12/05/21 01:33 IMPRESSION: No acute intracranial pathology. Electronically Signed: Davey Spencer MD at 2:57 EDT , Cervical Spine CT 12/05/21 01:33 IMPRESSION: Normal unenhanced CT examination of the cervical spine. Bilateral pulmonary apex infiltrates. Electronically Signed: Darin Chun MD at 3:26 EDT , Chest X-Ray 12/05/21 01:33 IMPRESSION: No radiographic evidence of acute cardiopulmonary disease. Electronically Signed: Davey Spencer MD at 3:17 EDT , Forearm X-Ray 12/05/21 01:37 IMPRESSION: Old healed fracture involving the distal radius. Electronically Signed: Davey Spencer MD at 3:19 EDT , Humerus X-Ray 12/05/21 01:37 IMPRESSION: Negative left humerus x-rays. Electronically Signed: Davey Spencer MD at 3:20 EDT , View chest x-ray obtained interpreted by myself as no acute disease process. Radiology in agreement. 2 view x-rays of the left humerus obtained interpreted by myself as no acute fractures. Radiology in agreement. 2 view x-rays of left forearm obtained interpreted by myself as no acute fractures or dislocations. Radiology in agreement. EKG Initial EKG: Attestation: I personally reviewed and interpreted this EKG as follows: Comments: Sinus rhythm with a rate of [address] changes Discharge Plan Triage Chief Complaint: Syncope ED Provider: Cassy Obregon Dx/Rx/DC Orders Clinical Impression: Syncope, Bradycardia Prescriptions: No Action levothyroxine 88 mcg tablet 88 mcg PO DAILY RF: 0 simvastatin 20 mg tablet 20 mg PO DAILY RF: 0 cholecalciferol (vitamin D3) [Vitamin D3] 50 mcg (2,000 unit) Tablet 50 mcg PO DAILY RF: 0 calcium 600 mg Capsule 600 mg PO DAILY RF: 0 magnesium 250 mg Tablet 250 mg PO DAILY RF: 0 fluticasone propionate [Flonase Allergy Relief] 50 mcg/actuation [place],Suspension 1 spray INTRANASAL DAILY PRN (Reason: ALLERGIES) RF: 0 tamsulosin [Flomax] 0.4 mg capsule 0.4 mg PO BID RF: 0 melatonin 5 mg Tablet 5 mg PO QHS RF: 0 Primary Care Provider: Sunday Mcclelland Referrals: Sunday Mcclelland MD [Primary Care Provider] - Disposition Disposition: Acute Care Hospital [facility]
--- NOTE | 2021-12-05 01:37 | RAD_ITS ---
EXAM: XR LEFT FOREARM, 2 VIEWS CLINICAL INDICATION: fall TECHNIQUE: Frontal and lateral views of the left forearm. This report was created using [employer] report generation technology. COMPARISON: None. FINDINGS: BONES/JOINTS: Old healed fracture deformity involving the distal radius with dorsal inclination of the distal radius articular surface. Persisting posttraumatic positive ulnar variance with no complications. No dislocation. SOFT TISSUES: Unremarkable. RAD/Forearm 2 Views IMPRESSION: Old healed fracture involving the distal radius. Electronically Signed: Davey Spencer MD at 3:19 EDT ,
--- NOTE | 2021-12-05 01:37 | RAD_ITS ---
EXAM: XR LEFT HUMERUS, 2 OR MORE VIEWS CLINICAL INDICATION: fall TECHNIQUE: Frontal and lateral views of the left humerus. This report was created using [employer] report generation technology. COMPARISON: None. FINDINGS: BONES/JOINTS: Unremarkable. No acute fracture. No subluxation. Normal alignment. Preservation of the joint space. No sclerotic or destructive changes observed. SOFT TISSUES: Unremarkable. No soft tissue swelling or gas. No radiopaque foreign body. RAD/Humerus min 2 Views IMPRESSION: Negative left humerus x-rays. Electronically Signed: Davey Spencer MD at 3:20 EDT ,
[2021-12-05 01:41] LABS: Absolute Lymphocyte Count 1.31 X10^3/uL (0.83-4.51); Eosinophil# 0.18 X10^3/uL; Eosinophils% 1.7 % (0-5); Hematocrit 43.4 % (40-54); Hemoglobin 15.2 g/dL (13.0-16.5); Lymphocyte # 1.31 X10^3/ul (0.83-4.51); Lymphocyte % 12.7 % (19-41); Mean Corpuscular Volume 94.1 fL (80-94); Mean Platelet Vol. 8.9 fl (6.2-12.0); Monocyte% 6.8 % (0-10); NRBC Flagged by Analyzer 0 % (0-5); Neutrophil % 77.5 % (47-70); Platelet Count 194 K/mm3 (150-450); RBC Distribution Width CV 14.7 % (11.6-14.6); RBC Distribution Width SD 50.6 fl (35.1-43.9); Red Blood Count 4.61 M/mm3 (4.6-6.2); White Blood Count 10.3 K/mm3 (4.4-11.0)
[2021-12-05] MEDS: 0.9% Normal Saline 1,000 ML 150 ML IV ×2 (01:54→06:01)
[2021-12-05 02:01] LABS: Anion Gap 5 (5-15); BUN 20 mg/dL (7-18); BUN/Creat Ratio 16.9 RATIO (10-20); Calcium,Total 9.1 mg/dL (8.5-10.1); Chloride 108 mmol/L (98-107); Creatinine, Serum 1.18 mg/dL (0.70-1.30); EST Glomerular Filtration Rate 70 mL/min (>60); Est Glom Filt Rate - Afr Amer 84 mL/min (>60); Estimated Creatinine Clearance 60.84 ml/min; Glucose 112 mg/dL (74-106); Potassium 3.8 mmol/L (3.5-5.1); Sodium Level 140 mmol/L (136-145); Troponin-I HS 8 pg/mL (3.0-78.0)
--- NOTE | 2021-12-05 04:14 | HP.PCM.HOS_ITS ---
[facility] - General General Date of Admission: 12/05/21 HPI Narrative RAMYA GUILLERMO, is a 51 M with a significant history of Down syndrome; intracranial hemorrhage in 2012; VSD with repair at age 9 who presents to the emergency department with syncope. History was taken from patient's mother (predominantly mother) and father who was at the bedside as patient has Down syndrome and is unable to make his needs properly known; plus patient did not have his hearing aid at the time of history taking. Reportedly patient has had urinary urgency that has made him upset. On the day of presentation patient's mother heard patient's movement upstairs while patient's mother was downstairs. Patient's mother is unsure but thought patient had just use the bathroom at that time. While patient was standing upstairs with his mother watching patient fainted and then fell and tumbled over downstairs. Reportedly the patient's mother did not feel the patient's pulse after patient had tumbled over. At the emergent department patient was found to have multiple episodes where his heart rate was noted on telemetry to be in the 20s but patient had no symptoms of bradycardia. Because of urinary urgency patient was placed on Flomax in June 2021. With Flomax his symptoms resolved except on the day of presentation his urinary urgency symptoms reoccurred. With his fall patient complained of pain in his left forearm and his left hand. Patient had COVID 19 infection in June 2021. Patient is unvaccinated against COVID-19. [facility] Medical History Anxiety Congenital heart disease Depression Down's syndrome History of echocardiogram Loss of consciousness Non-smoker Stroke, hemorrhagic Thyroid disease Wears glasses Wears hearing aid Home Medications cholecalciferol (vitamin D3) [Vitamin D3] 50 mcg PO DAILY 06/05/21 [History Last Taken Unknown] levothyroxine 88 mcg PO DAILY 06/05/21 [History Last Taken 09/26/21] simvastatin 20 mg PO DAILY 06/05/21 [History Last Taken Unknown] calcium 600 mg PO DAILY 09/24/21 [History Last Taken Unknown] fluticasone propionate [Flonase Allergy Relief] 1 spray INTRANASAL DAILY PRN 09/24/21 [History Last Taken Unknown] magnesium 250 mg PO DAILY 09/24/21 [History Last Taken Unknown] tamsulosin [Flomax] 0.4 mg PO BID 09/24/21 [History Last Taken 09/26/21] melatonin 5 mg PO QHS 09/26/21 [History Last Taken Unknown] Allergy/AdvReac Type Severity Reaction Status Date / Time latex Allergy PT UNSURE Verified 12/05/21 01:22 OF REACTION Penicillins [PCN] Allergy Rash Verified 12/05/21 01:22 Family History Father No problems noted. Mother No problems noted. Surgical History Hx of cholecystectomy S/P VSD repair Social History (Updated 06/06/21 @ 07:[address] Laila Bergman MD) household members: family Smoking Status: Never smoker alcohol intake: never substance use type: does not use ROS ROS Narrative Pertinent positives and pertinent negatives as noted in HPI. All other systems were reviewed and are negative. Vital Signs Vital Signs Vital Signs: 12/05/21 01:19 12/05/21 01:38 Temperature 97.1 F L Temperature Source Temporal Pulse Rate 73 Respiratory Rate 14 Respiratory Pattern Normal Blood Pressure 97/82 H Blood Pressure Mean 87 Pulse Ox 97 Oxygen Delivery Method Room Air Weight Weight: 56.8 kg Body Mass Index (BMI) 26.2 Physical Exam Narrative Physical exam: General: Well-nourished, well-developed. Head: Normocephalic, atraumatic, no tenderness Eyes: PERRLA, EOMI ENT: Bloodstains on the lip of patient's mouth. No rhinorrhea noted. Neck: Nontender, full range of motion, no spinal tenderness, deformities, step- off CVS: Regular rate and rhythm. S1-S2 present. No murmur, gallop or rub. Respiratory : clear to auscultation bilaterally, chest wall nontender, no wheezing Abdomen: Soft, nontender, nondistended, normal bowel sounds, no masses : Deferred Back: Nontender, no CVA tenderness, no midline spinal tenderness, deformities, step-offs Extremities: Nontender full range of motion, no trauma Skin: Normal color, no trauma, abrasions Neuro: Alert, oriented, cranial nerves II through XII grossly intact. Psychiatry: Normal mood. Normal affect. Not depressed. Not anxious. Results Lab / Micro Data Result Diagrams: 12/05/21 01:26 12/05/21 01:26 Labs: Laboratory Results - last 24 hr 12/05/21 01:26: WBC 10.3, RBC 4.61, Hgb 15.2, Hct 43.4, MCV 94.1 H, MCH 33.0 H, MCHC 35.0, RDW Std Deviation 50.6 H, RDW Coeff of Annelise 14.7 H, Plt Count 194, MPV 8.9, Immature Gran % (Auto) 0.300, Neut % (Auto) 77.5 H, Lymph % (Auto) 12.7 L, [place] % (Auto) 6.8, Eos % (Auto) 1.7, Baso % (Auto) 1.0, Absolute Neuts (auto) 8.0 H, Absolute Lymphs (auto) 1.31, Nucleated RBC % 0 12/05/21 01:26: Sodium 140, Potassium 3.8, Chloride 108 H, Carbon Dioxide 27.0, Anion Gap 5, BUN 20 H, Creatinine 1.18, Estim Creat Clear Calc 60.84, Est GFR (MDRD) Af Amer 84, Est GFR (MDRD) Non-Af 70, BUN/Creatinine Ratio 16.9, Glucose 112 H, Calcium 9.1, Troponin I High Sens 8 Radiology Impression Abdomen/Pelvis CT 12/05/21 01:33 IMPRESSION: No acute abnormal finding in the abdomen or pelvis. Mild bibasilar atelectasis. Electronically Signed: Darin Chun MD at 3:53 EDT , Brain CT 12/05/21 01:33 IMPRESSION: No acute intracranial pathology. Electronically Signed: Davey Spencer MD at 2:57 EDT , Cervical Spine CT 12/05/21 01:33 IMPRESSION: Normal unenhanced CT examination of the cervical spine. Bilateral pulmonary apex infiltrates. Electronically Signed: Darin Chun MD at 3:26 EDT , Chest X-Ray 12/05/21 01:33 IMPRESSION: No radiographic evidence of acute cardiopulmonary disease. Electronically Signed: Davey Spencer MD at 3:17 EDT , Forearm X-Ray 12/05/21 01:37 IMPRESSION: Old healed fracture involving the distal radius. Electronically Signed: Davey Spencer MD at 3:19 EDT , Humerus X-Ray 12/05/21 01:37 IMPRESSION: Negative left humerus x-rays. Electronically Signed: Davey Spencer MD at 3:20 EDT , Assessment & Plan Assessment/Plan (1) Bradycardia: (2) Syncope: QUALIFIERS: Syncope type: unspecified Qualified Code(s): R55 - Syncope and collapse PLAN: Syncope Abdomen pelvis CT was visualized and independently interpreted and I agree with radiologist interpretation of no acute abnormal findings. Chest x-ray was visualized and independently interpreted and agree with radiologist interpretation of no acute findings. Received IV fluid at the emergency department and continued. Orthostatic vitals ordered. Of note patient is on Flomax which he has tolerated since June 2021. Potassium level is 3.8 ; replacement ordered. On home magnesium; continued. Check magnesium level. Review of labs showed normal white count but with neutrophilia and lymphopenia. Trend CBC. Last echocardiogram on file was on 06/06/2021. Echocardiogram at time showed ejection fraction of 55% with no evidence of diastolic dysfunction. Trivial mitral valve insufficiency. Right ventricular external pressure was 21 mmHg. Mild focal aortic valve thickening. Trivial pulmonary valve insufficiency. Re peat echocardiogram. Bradycardia EKG with sinus rhythm T wave inversions in V1, V3 V4. Leads III and aVF with T wave flattening. Witnessed asymptomatic bradycardia on monitor with heart rate of around 26. Observe at the progressive care unit on telemetry. Cardiology consult Urinary urgency Urinalysis is not impressive as urine nitrite is negative; urine leukocyte Estrace is negative. Urine bacteria is 1+ however there is no pyuria. Because of symptoms your urine culture ordered at the ED, follow. DVT prophylaxis: SCD ordered. Charges/Coding Visit Charges OBSV E&M: 89121 Initial observation care L3
[2021-12-05 04:35] LABS: Mucous, Urine 0 SEEN /hpf (<or=2+); Red Blood Cells-Urine 0 SEEN /hpf (0-5); Squamous Epithelial Cells - UA 0 SEEN /hpf (0-5); White Blood Cells 0 SEEN /hpf (0-5)
[2021-12-05 04:38] LABS: Color, Urine Yellow (Yellow); Glucose, Dipstick Normal (Normal); Ketone-Dipstick Negative (Negative); Leukocyte Esterase-Dipstick Negative /ul (Negative); Nitrite-Dipstick Negative (Negative); Occult Blood-Urine Negative /ul (Negative); Protein-Dipstick 15 mg/dl (Negative); Urine Bilirubin Dipstick Negative (Negative); Urine Clarity Clear (Clear); Urine Urobilinogen Normal (Normal)
[2021-12-05 04:48] LABS: Bacteria 1+ /hpf (None Seen)
[2021-12-05 04:49] LABS: Amorphous Sediment 1+
--- NOTE | 2021-12-05 05:55 | ECHOD_ITS ---
Reason For Study: SYNCOPE/NEAR SYNCOPE Procedure This was a 2D Doppler, Color Flow transthoracic echocardiogram. The exam was of adequate technical quality. Exam performed portable in patient room. Left Ventricle Normal LV size. Left ventricular systolic function is normal. The estimated ejection fraction is 60 %. No evidence for diastolic dysfunction. No regional wall motion abnormalities noted. Right Ventricle Mildly dilated right ventricle. Normal systolic function. Atria Normal left atrium. Normal right atrium. No doppler evidence for ASD. Mitral Valve There is no mitral annular calcification. Mild diffuse mitral valve thickening. Trivial mitral valve insufficiency. Tricuspid Valve Normal tricuspid valve. Mild tricuspid valve insufficiency. Right ventricular systolic pressure estimated to be 24 mmHg. Aortic Valve Trisinus/trileaflet aortic valve. Mild focal aortic valve thickening. Pulmonic Valve The pulmonic valve is not well visualized. Trivial pulmonic valve insufficiency. Great Vessels Normal sized aortic root. Pericardium/Pleural No pericardial effusion. MMode/2D Measurements & Calculations LVIDd: 3.7 cm IVSd: 0.63 cm Ao root diam: 3.1 cm LVIDs: 2.4 cm LVPWd: 0.63 cm RVDd: 3.9 cm FS: 36.2 % LAV(MOD-bp): 24.0 ml LVAd ap4: 21.5 cm2 SV(MOD-sp4): 34.4 ml LAV(MOD-bp) Indexed: 16.3 ml/m2 LVLd ap4: 7.0 cm LAV(MOD-sp2): 22.1 ml EDV(MOD-sp4): 55.3 ml LAV(MOD-sp4): 24.2 ml EDV(sp4-el): 56.0 ml LVAs ap4: 11.6 cm2 LVLs ap4: 5.8 cm ESV(MOD-sp4): 20.9 ml ESV(sp4-el): 19.6 ml EF(MOD-sp4): 62.2 % EF(sp4-el): 64.9 % SV(sp4-el): 36.3 ml LA A4 area: 11.1 cm2 LA dimension(2D): 3.1 cm RA A4 area: 10.3 cm2 Time Measurements MV dec time: 0.19 sec Doppler Measurements & Calculations MV E max ronnie: 83.1 cm/sec Lat Peak E' Ronine: 11.2 cm/sec Med Peak E' Ronnie: 9.1 cm/sec MV A max ronnie: 67.5 cm/sec E/E' lat: 7.4 E/E' med: 9.1 MV E/A: 1.2 Ao V2 max: 107.0 cm/sec LV V1 max: 97.0 cm/sec PA V2 max: 105.0 cm/sec Ao max P.6 mmHg LV V1 max P.8 mmHg TR max ronnie: 227.2 cm/sec TR max P.7 mmHg ECHO/Echo Complete Interpretation Summary Left ventricular systolic function is normal. The estimated ejection fraction is 60 %. Mildly dilated right ventricle. Mild diffuse mitral valve thickening. Trivial mitral valve insufficiency. Mild tricuspid valve insufficiency. Mild focal aortic valve thickening. Trivial pulmonic valve insufficiency. Right ventricular systolic pressure estimated to be 24 mmHg. No evidence for diastolic dysfunction. Ordering Physician: Darien Nj Referring Physician: ROULA BENTLEY Performed By: Trinidad Child RDCS
[2021-12-05] MEDS: Levothyroxine 88 MCG Tablet PO (05:57)
[2021-12-05] MEDS: Potassium Chloride Oral Tablet 20 MEQ PO (05:57)
[2021-12-05 06:54] LABS: Magnesium 2.3 mg/dL (1.6-2.6)
--- NOTE | 2021-12-05 09:45 | PCM.CONS.C ---
Assessment & Plan Assessment/Plan (1) Syncope: QUALIFIERS: Syncope type: unspecified Qualified Code(s): R55 - Syncope and collapse PLAN: The patient has a history of syncopal events. According to the patient's mother, in the past, these events have occurred during various situations and/or illnesses. She states this event appeared to be markedly different from his previous events based upon her witnessing his event being abrupt with total loss of consciousness leading to his falling down the stairs. There is a concern as to whether or not the patient does have a history of a situational/vasovagal type mediated syncope, however, now other is a concern based upon his ongoing findings of marked sinus bradycardia as to whether or not his bradycardia may be contributing to this most recent event. At the present time he is being monitored. He has been requested to have a follow-up transthoracic echocardiogram to reassess his cardiac anatomy and function. Consideration will have to be given as to whether or not he is a candidate for permanent pacemaker support to support his bradycardia, knowing, that this may not necessarily prohibit all syncopal events especially if he does have situational events that lead to vasodepressive events and hypotension. (2) Bradycardia: PLAN: Again he is undergoing evaluation care for his bradycardia. Consideration will be given, based upon his ongoing evaluation, as to whether or not he should be considered for permanent pacemaker as noted above. (3) VSD (ventricular septal defect): PLAN: He does have a history of VSD repair. According to his mother he is done well since that repair. He is being reassessed with a transthoracic echocardiogram. (4) Down's syndrome: PLAN: He also has a history of Down syndrome. He has lived with his parents. He currently participates in and out of the house monitored activity for patients with similar type illnesses. His mother states he is done very well with this program. Addt'l Comments The patient's case has been discussed and reviewed with the patient's mother as well as with Dr. Russell. This note was generated using a voice recognition system and there may be incorrect words, spelling or punctuation that were not noted when reviewing the office note prior to saving. 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 According to the patient, but predominantly according to the patient's mother who is present at the time, the patient underwent VSD repair at the age of approximately 9. Since that time to the best of her knowledge she has had no obvious adverse cardiovascular events or required additional cardiovascular studies other than a transthoracic echocardiogram performed in May 2021. At that time she states that while attending a service at [facility] he experienced a brief loss of consciousness event. She notes that upon returning to [place] he was subsequently evaluated and diagnosed with COVID-19. He did undergo evaluation with a transthoracic echocardiogram. It appeared to demonstrate that his left ventricular systolic function was normal with an LVEF 55% with no hemodynamically significant valvular disease appreciated, and estimated RV systolic pressure 21 mmHg, and no evidence of diastolic dysfunction. She notes over his lifetime she believes he may have had 4 episodes where he briefly lost consciousness. She notes these episodes were usually associated with some other illness. She states since June he has not had any recurrent similar type events. Since that time, when he also was noted to have urinary related issues, he was placed on medical management with Flomax. She notes he has been doing well. She states yesterday he was at his usual daily activities. She reports he did voice some concern about some difficulty urinating during the day. However in the evening she states he appeared to be doing well. She noted that around midnight he had gotten up and gotten dressed and use the bathroom to urinate. She states that she heard him upstairs and noted he was standing at the top of the steps. She then noted that he became limp and tumbled down the stairs. She caught him on approximately the fourth step. She stated he appeared pale. She attempted to locate a pulse but she could not find one, however, she admits she is not a medical professional and thus was not sure she was checking in the correct place. She states that it took 1 to 2 minutes for him to appear to regain consciousness. He was subsequently brought to the emergency department for further evaluation. In the emergency department it was noted that he had a combination of marked sinus bradycardia with ventricular rates between 20 and 30 bpm. He was also noted to be somewhat hypotensive. He underwent various laboratory studies which demonstrated negative cardiac enzymes. His ECG demonstrated sinus rhythm with a nonspecific T wave abnormality. His cardiac rhythm strips have demonstrated episodes, while he is lying in bed resting, of marked sinus bradycardia with ventricular rates between 20 and 30 bpm. He has been intermittently hypotensive. He also underwent a variety of radiologic studies, based upon his fall, that reportedly demonstrated no obvious musculoskeletal defects. According to the patient's mother he has overall been doing well. She has not noticed any obvious recent acute illness. She has not been aware of any obvious symptoms of any form of chest discomfort or difficulty breathing. As noted above she has not noted, since the fall 2020, any recurrent syncopal events. [facility] Medical History (Updated 12/05/21 @ 09:[address] Darin Lujan MD) Anxiety Congenital heart disease Depression Down's syndrome Down's syndrome Hearing loss, left Hearing loss, right History of echocardiogram Loss of consciousness Non-smoker Stroke, hemorrhagic Thyroid disease VSD (ventricular septal defect) Wears glasses Wears hearing aid Wears hearing aid in both ears Home Medications cholecalciferol (vitamin D3) [Vitamin D3] 50 mcg PO DAILY 06/05/21 [History Last Taken 12/04/21] levothyroxine 88 mcg PO MOTUWETHFR 06/05/21 [History Last Taken 12/04/21] simvastatin 20 mg PO DAILY 06/05/21 [History Last Taken 12/04/21] calcium 600 mg PO DAILY 09/24/21 [History Last Taken 12/04/21] fluticasone propionate [Flonase Allergy Relief] 1 spray INTRANASAL DAILY PRN 09/24/21 [History Last Taken 12/04/21] magnesium 250 mg PO DAILY 09/24/21 [History Last Taken Unknown] tamsulosin [Flomax] 0.4 mg PO BID 09/24/21 [History Last Taken 12/04/21] melatonin 5 mg PO QHS 09/26/21 [History Last Taken 12/04/21] Allergy/AdvReac Type Severity Reaction Status Date / Time latex Allergy PT UNSURE Verified 12/05/21 01:22 OF REACTION Penicillins [PCN] Allergy Rash Verified 12/05/21 01:22 Family History Father No problems noted. Mother No problems noted. Surgical History Hx of cholecystectomy S/P VSD repair Social History (Updated 06/06/21 @ 07:[address] Laila Bergman MD) household members: family Smoking Status: Never smoker alcohol intake: never substance use type: does not use ROS Constitutional Constitutional: Reports as per HPI Eyes Eyes: Reports as per HPI ENT HEENT: Reports as per HPI Cardiovascular Cardiovascular: Reports arrhythmia on telemetry and syncope Respiratory/Chest Respiratory/Chest: Reports as per HPI Gastrointestinal Gastrointestinal: Reports as per HPI Genitourinary Genitourinary: Reports difficulty urinating Musculoskeletal Musculoskeletal: Reports as per HPI Integumentary Integumentary: Reports as per HPI Neurologic Neurologic: Reports as per HPI Psychiatric Psychiatric: Reports as per HPI Physical Exam Const alert and no apparent distress Orientation / Consciousness: awake HEENT normocephalic and head/scalp atraumatic HEENT Narrative: Decreased hearing Eyes PERRL, EOMs intact bilaterally and conjunctivae normal Neck full ROM, supple and no JVD Resp clear to auscultation bilaterally Cardio regular rate, regular rhythm, S1 normal heart sound and S2 normal heart sound GI normal to inspection, nondistended, normoactive bowel sounds Extremity no pedal edema Skin no rashes or lesions noted Neuro moves all extremities Psych cooperative Risk Stratification Risk Stratification Applicable: No Procedure Criteria Type of Procedure Procedure Type: Elective Elective Risks - COVID COVID Risk Discussion: The surgeon/proceduralist and patient have discussed in detail the risk of exposure to and/or potential harm posed by the COVID-19 virus with having a surgery/procedure at this time versus the risk of delaying the surgery/procedure. It is not possible to know either the risk of delaying the surgery or procedure or chance of getting an infection with perfect accuracy, but a joint decision was made between the patient and the surgeon/proceduralist to proceed at this time with the scheduled surgery/procedure as indicated on the consent form. Objective Data Vital Signs: Vital Signs Temp Pulse Resp BP Pulse Ox 97.0 F L 60 18 107/73 97 12/05/21 05:17 12/05/21 07:00 12/05/21 05:17 12/05/21 05:20 12/05/21 07:49 Oxygen Delivery Method Room Air Weight: 121 lb 11.123 oz Body Mass Index (BMI) 24.5 Intake & Output: Intake and Output for Last 24 Hours 12/03/21 12/04/21 12/05/21 23:59 23:59 23:59 Intake Total 1250.0 / 1250.0 Output Total 150 / 150 Balance 1100.0 / 1100.0 Lab / Micro Data Result Diagrams: 12/05/21 01:26 12/05/21 01:26 Labs: Laboratory Results - last 24 hr 12/05/21 01:26: WBC 10.3, RBC 4.61, Hgb 15.2, Hct 43.4, MCV 94.1 H, MCH 33.0 H, MCHC 35.0, RDW Std Deviation 50.6 H, RDW Coeff of Annelise 14.7 H, Plt Count 194, MPV 8.9, Immature Gran % (Auto) 0.300, Neut % (Auto) 77.5 H, Lymph % (Auto) 12.7 L, [place] % (Auto) 6.8, Eos % (Auto) 1.7, Baso % (Auto) 1.0, Absolute Neuts (auto) 8.0 H, Absolute Lymphs (auto) 1.31, Nucleated RBC % 0 12/05/21 01:26: Sodium 140, Potassium 3.8, Chloride 108 H, Carbon Dioxide 27.0, Anion Gap 5, BUN 20 H, Creatinine 1.18, Estim Creat Clear Calc 60.84, Est GFR (MDRD) Af Amer 84, Est GFR (MDRD) Non-Af 70, BUN/Creatinine Ratio 16.9, Glucose 112 H, Calcium 9.1, Troponin I High Sens 8 12/05/21 01:26: Magnesium 2.3 12/05/21 04:30: Urine Color Yellow, Urine Clarity Clear, Urine pH 7.0, Ur Specific [place] 1.010, Urine Protein 15 H, Urine Glucose (UA) Normal, Urine Ketones Negative, Urine Occult Blood Negative, Urine Nitrite Negative, Urine Bilirubin Negative, Urine Urobilinogen Normal, Ur Leukocyte Esterase Negative, Urine RBC 0 SEEN, Urine WBC 0 SEEN, Ur Squamous Epith Cells 0 SEEN, Amorphous Sediment 1+, Urine Bacteria 1+, Urine Mucus 0 SEEN Cardiology Labs/Tests 12/05/21 01:26: WBC 10.3, RBC 4.61, Hgb 15.2, Hct 43.4, MCV 94.1 H, MCH 33.0 H, MCHC 35.0, Plt Count 194, MPV 8.9, Immature Gran % (Auto) 0.300, Neut % (Auto) 77.5 H, Lymph % (Auto) 12.7 L, [place] % (Auto) 6.8, Eos % (Auto) 1.7, Baso % (Auto) 1.0, Absolute Neuts (auto) 8.0 H, Nucleated RBC % 0 12/05/21 01:26: Sodium 140, Potassium 3.8, Chloride 108 H, Carbon Dioxide 27.0, Anion Gap 5, BUN 20 H, Creatinine 1.18, Est GFR (MDRD) Af Amer 84, Est GFR (MDRD) Non-Af 70, BUN/Creatinine Ratio 16.9, Glucose 112 H, Calcium 9.1 12/05/21 01:26: Magnesium 2.3 12/05/21 04:30: Urine Color Yellow, Urine Clarity Clear, Urine pH 7.0, Ur Specific [place] 1.010, Urine Protein 15 H, Urine Glucose (UA) Normal, Urine Ketones Negative, Urine Occult Blood Negative, Urine Nitrite Negative, Urine Bilirubin Negative, Urine Urobilinogen Normal, Ur Leukocyte Esterase Negative, Urine RBC 0 SEEN, Urine WBC 0 SEEN Rhythm: Sinus rhythm/marked sinus bradycardia EKG: As noted above ECHO: 06-06-2021 Interpretation Summary The study was technically difficult. Left ventricular systolic function is normal. The estimated ejection fraction is 55 %. Trivial mitral valve insufficiency. Trivial tricuspid valve insufficiency. Mild focal aortic valve thickening. Trivial pulmonic valve insufficiency. Right ventricular systolic pressure estimated to be 21 mmHg. No evidence for diastolic dysfunction. Radiography Diagnostic Testing: Radiology Impression Abdomen/Pelvis CT 12/05/21 01:33 IMPRESSION: No acute abnormal finding in the abdomen or pelvis. Mild bibasilar atelectasis. Electronically Signed: Darin Chun MD at 3:53 EDT , Brain CT 12/05/21 01:33 IMPRESSION: No acute intracranial pathology. Electronically Signed: Davey Spencer MD at 2:57 EDT , Cervical Spine CT 12/05/21 01:33 IMPRESSION: Normal unenhanced CT examination of the cervical spine. Bilateral pulmonary apex infiltrates. Electronically Signed: Darin Chun MD at 3:26 EDT , Chest X-Ray 12/05/21 01:33 IMPRESSION: No radiographic evidence of acute cardiopulmonary disease. Electronically Signed: Davey Spencer MD at 3:17 EDT , Forearm X-Ray 12/05/21 01:37 IMPRESSION: Old healed fracture involving the distal radius. Electronically Signed: Davey Spencer MD at 3:19 EDT , Humerus X-Ray 12/05/21 01:37 IMPRESSION: Negative left humerus x-rays. Electronically Signed: Davey Spencer MD at 3:20 EDT ,
--- NOTE | 2021-12-05 11:02 | PN.HOSP_ITS ---
Subjective Subjective DW pt's mother. Pt was leaning on wall then passed out falling down stairs. Never had this before. Has been on tamsulosin for past couple months. Objective Data Objective Data Vital Signs: Vital Signs Temp Pulse Resp BP Pulse Ox 36.1 C L 60 18 107/73 97 12/05/21 05:17 12/05/21 07:00 12/05/21 05:17 12/05/21 05:20 12/05/21 07:49 Oxygen Delivery Method Room Air Weight: 55.2 kg Body Mass Index (BMI) 24.5 Intake & Output: Intake and Output for Last 24 Hours 12/03/21 12/04/21 12/05/21 23:59 23:59 23:59 Intake Total 1250.0 / 1250.0 Output Total 150 / 150 Balance 1100.0 / 1100.0 Lab / Micro Data Result Diagrams: 12/05/21 01:26 12/05/21 01:26 Labs: Laboratory Results - last 24 hr 12/05/21 01:26: WBC 10.3, RBC 4.61, Hgb 15.2, Hct 43.4, MCV 94.1 H, MCH 33.0 H, MCHC 35.0, RDW Std Deviation 50.6 H, RDW Coeff of Annelise 14.7 H, Plt Count 194, MPV 8.9, Immature Gran % (Auto) 0.300, Neut % (Auto) 77.5 H, Lymph % (Auto) 12.7 L, [place] % (Auto) 6.8, Eos % (Auto) 1.7, Baso % (Auto) 1.0, Absolute Neuts (auto) 8.0 H, Absolute Lymphs (auto) 1.31, Nucleated RBC % 0 12/05/21 01:26: Sodium 140, Potassium 3.8, Chloride 108 H, Carbon Dioxide 27.0, Anion Gap 5, BUN 20 H, Creatinine 1.18, Estim Creat Clear Calc 60.84, Est GFR (MDRD) Af Amer 84, Est GFR (MDRD) Non-Af 70, BUN/Creatinine Ratio 16.9, Glucose 112 H, Calcium 9.1, Troponin I High Sens 8 12/05/21 01:26: Magnesium 2.3 12/05/21 04:30: Urine Color Yellow, Urine Clarity Clear, Urine pH 7.0, Ur Specific [place] 1.010, Urine Protein 15 H, Urine Glucose (UA) Normal, Urine Ketones Negative, Urine Occult Blood Negative, Urine Nitrite Negative, Urine Bilirubin Negative, Urine Urobilinogen Normal, Ur Leukocyte Esterase Negative, Urine RBC 0 SEEN, Urine WBC 0 SEEN, Ur Squamous Epith Cells 0 SEEN, Amorphous Sediment 1+, Urine Bacteria 1+, Urine Mucus 0 SEEN Radiography Diagnostic Testing: Radiology Impression Abdomen/Pelvis CT 12/05/21 01:33 IMPRESSION: No acute abnormal finding in the abdomen or pelvis. Mild bibasilar atelectasis. Electronically Signed: Darin Chun MD at 3:53 EDT , Brain CT 12/05/21 01:33 IMPRESSION: No acute intracranial pathology. Electronically Signed: Davey Spencer MD at 2:57 EDT , Cervical Spine CT 12/05/21 01:33 IMPRESSION: Normal unenhanced CT examination of the cervical spine. Bilateral pulmonary apex infiltrates. Electronically Signed: Darin Chun MD at 3:26 EDT , Chest X-Ray 12/05/21 01:33 IMPRESSION: No radiographic evidence of acute cardiopulmonary disease. Electronically Signed: Davey Spencer MD at 3:17 EDT , Forearm X-Ray 12/05/21 01:37 IMPRESSION: Old healed fracture involving the distal radius. Electronically Signed: Davey Spencer MD at 3:19 EDT , Humerus X-Ray 12/05/21 01:37 IMPRESSION: Negative left humerus x-rays. Electronically Signed: Davey Spencer MD at 3:20 EDT Reading Location ID and State: [facility] / [place] Tel , Service support , Physical Exam Const alert and no apparent distress Cardio regular rate, regular rhythm, S1 normal heart sound and S2 normal heart sound GI normal to inspection, nondistended, normoactive bowel sounds, soft to palpation, non-tender and non-distended Extremity normal to inspection Assessment & Plan Assessment/Plan (1) Syncope: QUALIFIERS: Syncope type: unspecified Qualified Code(s): R55 - Syncope and collapse (2) Bradycardia: PLAN: 1. syncope etiology unclear: hypotensive, vasovagal, bradycardia monitor HLIV as pt is now eating echo pending 2. Bradycardia unclear if symptomatic monitor 3. VTE prophylaxis: LMWH Charges/Coding Visit Charges Inpatient E&M: 60650 Subs Hosp L2
--- NOTE | 2021-12-05 11:45 | CASEMGMT ---
This RN CM to room to complete CM assessment and Dr. Otero is at bedside speaking with pt/family. RN CM to attempt again later. SStsilvio RN CM
[2021-12-05 12:01] LABS: Bedside Glucose 117 mg/dL (74-106)
--- NOTE | 2021-12-05 13:54 | CASEMGMT ---
This RN CM to room to complete CM assessment and pt is out of dept getting pacer placed. SStaten RN CM
--- NOTE | 2021-12-05 15:00 | CASEMGMT ---
SUHAS BYRD assessment: Face to Face with patient for initial transition planning/care coordination assessment. SUHAS BYRD introduced self and role at [facility], pt voices understanding and consents to assessment. Pt is sitting up in bed in no distress on 2L nc. Pt is eating lunch s/p pacer and parents answer all questions appropriately. Per parents, pt is his own person and does not have a guardian. Care providers, pharmacy, and demographics verified. Presentation: Pt fell down approx 13 steps after syncopal episode, pt c/o left arm pain Admitting dx: Syncope, bradycardia PCP: Krystin Specialists: Noelle, uro-Pt will f/u with Dr. Otero Preferred Pharmacy: [facility] Insurance: [employer] [facility] Prescription Benefit: [facility] Living Will/HPOA: Pt does have HPOA and his parents are listed as HPOA but they are aware that AD's are not on file at [facility]. LNOK: Yohana Hart, mother; Michael Hart, father Living Arrangements: Pt lives with parents in 2 story home and states no concerns at home. Pt is independent with ADL's. Transportation: Parents drive and state no transportation concerns. DME/HHC: Pt states no current DME or need for any further DME. Pt states no hx of HHC or SNF but has been to IP rehab in the past. Pt/parents state no concerns pt going home at time of discharge. Pt is on disability. Pt does not smoke cigarettes but does occasionally have a beer. Pt/parents voice no further concerns/needs. CM to follow for any further discharge planning/needs. Advised pt/parents to ask for CM if any further questions/concerns/needs arise, voices understanding. Pt Goal: Home Plan: Home SStaten SUHAS BYRD
[2021-12-05] MEDS: Magnesium Chloride 64 MG Delay Rel.Tablet PO (15:03)
[2021-12-05] MEDS: Tamsulosin HCl 0.4 MG Capsule PO (15:03)
[2021-12-05] MEDS: Cholecalciferol (VIT D3) 25 MCG TABLET (1,000 UNITS) 50 MCG PO (15:03)
[2021-12-05] MEDS: Calcium (Elemental) 500 MG Tablet PO (15:03)
[2021-12-05] MEDS: MELATONIN 10 MG TABLET 5 MG PO (21:57)
[2021-12-05] MEDS: Atorvastatin Calcium 10 MG Tablet PO (21:57)
[2021-12-06] VITALS (7 sets, daily range): BP systolic 91–110; BP diastolic 58–73; PULSE 66–101; RESP 16–18; TEMP 36.4–36.7; O2SAT 93–95
[2021-12-06] MEDS: Enoxaparin 40 MG/0.4 ML Syringe SC (05:50)
[2021-12-06] MEDS: Levothyroxine 88 MCG Tablet PO (05:50)
--- NOTE | 2021-12-06 05:55 | RAD_ITS ---
STUDY: X-RAY CHEST REASON FOR EXAM: Male, 51 years old. Post permanant ICD/Pacemaker -- inspiration/expiration. Arms Down. Wet read to TECHNIQUE: AP inspiratory and expiratory and lateral views of the chest. 3 images COMPARISON: 12/05/2021 FINDINGS: Interval placement of a left subclavian approach dual lead pacemaker with lead tips over the right atrium and right ventricle. There is no acute angulation or disruption of the leads. There is no demonstrated pneumothorax. The lungs are clear and expanded. There is no demonstrated pleural abnormality. Sternal cerclage wires are present from a prior sternotomy. Normal mediastinum and ang. Normal visualized pulmonary arteries. Normal visualized aortic arch and descending thoracic aorta. There is demineralization of the osseous structures. Remote posterior left rib deformities. There is no demonstrated abnormality of the visualized soft tissue structures of the upper abdomen. RAD/Chest 3 View IMPRESSION: Pacemaker placement. There is no demonstrated pneumothorax. Other nonacute findings as outlined above. Electronically Signed: Deana Kam MD at 6:32 EDT Reading Location ID and State: , Service support ,
--- NOTE | 2021-12-06 08:48 | PN.CARD_ITS ---
Subjective Subjective The patient appears to be resting comfortably at this time. His parents are with him. They state that since his procedure his overall color appears to be markedly improved. Objective Data Vital Signs: Vital Signs Temp Pulse Resp BP Pulse Ox 97.5 F L 70 18 97/58 L 95 12/06/21 05:58 12/06/21 07:00 12/06/21 05:58 12/06/21 05:58 12/06/21 07:28 Oxygen Delivery Method Room Air Weight: 121 lb 11.123 oz Body Mass Index (BMI) 24.5 Intake & Output: Intake and Output for Last 24 Hours 12/04/21 12/05/21 12/06/21 23:59 23:59 23:59 Intake Total 1716.0 / 2016.0 540 / 540 Output Total 300 / 600 800 / 800 Balance 1416.0 / 1416.0 -260 / -260 Lab / Micro Data Result Diagrams: 12/05/21 01:26 12/05/21 01:26 Labs: Laboratory Results - last 24 hr 12/05/21 11:54: POC Glucose 117 H Cardiology Labs/Tests Rhythm: Sinus rhythm; electronic atrial paced rhythm Radiography Diagnostic Testing: Radiology Impression Echocardiogram 12/05/21 05:55 Interpretation Summary Left ventricular systolic function is normal. The estimated ejection fraction is 60 %. Mildly dilated right ventricle. Mild diffuse mitral valve thickening. Trivial mitral valve insufficiency. Mild tricuspid valve insufficiency. Mild focal aortic valve thickening. Trivial pulmonic valve insufficiency. Right ventricular systolic pressure estimated to be 24 mmHg. No evidence for diastolic dysfunction. Ordering Physician: Darien Nj Referring Physician: ROULA BENTLEY Performed By: Trinidad Child RDCS Chest X-Ray 12/06/21 05:55 IMPRESSION: Pacemaker placement. There is no demonstrated pneumothorax. Other nonacute findings as outlined above. Electronically Signed: Deana Kam MD at 6:32 EDT Reading Location ID and State: , Service support , Physical Exam Const alert and no apparent distress Orientation / Consciousness: awake HEENT normocephalic and head/scalp atraumatic Eyes PERRL, EOMs intact bilaterally and conjunctivae normal Neck full ROM, supple and no JVD Chest Chest Narrative: Surgical dressing: Clean and dry Chest: left pectoral incision Resp clear to auscultation bilaterally Cardio regular rate, regular rhythm, S1 normal heart sound and S2 normal heart sound GI normal to inspection, nondistended, normoactive bowel sounds Extremity no pedal edema Skin no rashes or lesions noted Neuro moves all extremities Psych cooperative Assessment & Plan Assessment/Plan (1) Syncope: QUALIFIERS: Syncope type: unspecified Qualified Code(s): R55 - Syncope and collapse PLAN: The patient has a history of syncopal events. According to the patient's mother, in the past, these events have occurred during various si tuations and/or illnesses. She states this event appeared to be markedly different from his previous events based upon her witnessing his event being abrupt with total loss of consciousness leading to his falling down the stairs. There is a concern as to whether or not the patient does have a history of a situational/vasovagal type mediated syncope, however, now other is a concern based upon his ongoing findings of marked sinus bradycardia as to whether or not his bradycardia may be contributing to this most recent event. He has now undergone further evaluation with a transthoracic echocardiogram with the results as noted. He has also undergone further evaluation and care with permanent pacemaker placement. (2) Bradycardia: PLAN: Again he is undergoing evaluation care for his bradycardia. He has undergone further evaluation care with permanent pacemaker placement. His post procedure chest x-ray demonstrates no acute changes. He is pending pacemaker interrogation this morning. (3) VSD (ventricular septal defect): PLAN: He does have a history of VSD repair. According to his mother he is done well since that repair. His echocardiogram did not appear to suggest any acute changes. (4) Down's syndrome: PLAN: He also has a history of Down syndrome. He has lived with his parents. He currently participates in and out of the house monitored activity for patients with similar type illnesses. His mother states he is done very well with this program. Sonamsurendra'l Comments Overall, from a cardiac standpoint, he will continue with future outpatient cardiovascular follow-up and permanent pacemaker follow-up. A discussion was also held with his parents regarding his somewhat low blood pressure. They state his blood pressure is not usually that low, however, they note since being on Flomax therapy there has been a question of his blood pressure being somewhat lower. They are going to address this issue, with respect to the Flomax therapy, with his urologist. This note was generated using a voice recognition system and there may be incorrect words, spelling or punctuation that were not noted when reviewing the office note prior to saving.
--- NOTE | 2021-12-06 10:03 | PCM.DC ---
Discharge Instructions Diet Discharge Diet: No restrictions (as you feel able. No excessive stretching. No lifting your arm over your head (keep elbow below shoulder level) until seen for your pacemaker check. Do not lift your elbow away from your side until you are seen for your first visit. Keep the arm sling on if it helps remind you not to lift your arm.) Activity Additional Activity Instructions:: May shower or bathe on [day 3]. Do not scrub the incision or soak in the tub. Just wash with soap and let the water run over the incision. Gently pat dry with towel. Medications: Take your pain medication as directed. Refer to your discharge instruction sheet for a list of medications you are to take. Dressing / Incision Call your doctor if your incision/area has: Continuous Slow Oozing, Sudden Increased Bleeding, Increased Pain/ Swelling, Increased Redness, Foul Smelling Discharge and Swelling at the incision site Call your doctor if you observe: Fever of 101 or Higher, Shortness of breath, Dizziness, Fainting spells, Swelling in the ankles, Chest pain, Prolonged hiccupping and Increased palpitations (irregular heartbeat) Additional Dressing/Incision Instructions:: When dressing is removed, wash and dry incision. Keep covered with a light bandage if it is rubbing against your clothing. Do not cover the incision with an airtight bandage. Change the bandage daily. Do not remove steri strips. The strips will fall off on their own. Follow Up Care Please Follow Up With: Dudley Otero MD When: Call [phone] for follow up. Pacer appointment on Thursday 12/14 at 1 pm Test Results: Test results from this visit will be discussed in further detail at your follow-up appointment, if applicable. Discharge Plan Admission Admit Date/Time: 12/05/21 09:32 Attending Provider: Ruben Russell Primary Care Provider: Sunday Mcclelland Consulting Providers: Darin Lujan Discharge Orders/Prescriptions Prescriptions: No Action levothyroxine 88 mcg tablet 88 mcg PO MOTUWETHFR RF: 0 simvastatin 20 mg tablet 20 mg PO DAILY RF: 0 cholecalciferol (vitamin D3) [Vitamin D3] 50 mcg (2,000 unit) Tablet 50 mcg PO DAILY RF: 0 calcium 600 mg Capsule 600 mg PO DAILY RF: 0 magnesium 250 mg Tablet 250 mg PO DAILY RF: 0 fluticasone propionate [Flonase Allergy Relief] 50 mcg/actuation [place],Suspension 1 spray INTRANASAL DAILY PRN (Reason: ALLERGIES) RF: 0 tamsulosin [Flomax] 0.4 mg capsule 0.4 mg PO BID RF: 0 melatonin 5 mg Tablet 5 mg PO QHS RF: 0 Referrals / Follow Up: Sunday Mcclelland MD [Primary Care Provider] -
[2021-12-06] MEDS: Calcium (Elemental) 500 MG Tablet PO (10:16)
[2021-12-06] MEDS: Cholecalciferol (VIT D3) 25 MCG TABLET (1,000 UNITS) 50 MCG PO (10:16)
[2021-12-06] MEDS: Magnesium Chloride 64 MG Delay Rel.Tablet PO (10:16)
--- NOTE | 2021-12-06 11:07 | DCINST_ITS ---
Discharge Instructions Diet Discharge Diet: No restrictions (as you feel able. No excessive stretching. No lifting your arm over your head (keep elbow below shoulder level) until seen for your pacemaker check. Do not lift your elbow away from your side until you are seen for your first visit. Keep the arm sling on if it helps remind you not to lift your arm.) Activity Additional Activity Instructions:: May shower or bathe on [day 3]. Do not scrub the incision or soak in the tub. Just wash with soap and let the water run over the incision. Gently pat dry with towel. Medications: Take your pain medication as directed. Refer to your discharge instruction sheet for a list of medications you are to take. Dressing / Incision Call your doctor if your incision/area has: Continuous Slow Oozing, Sudden Increased Bleeding, Increased Pain/ Swelling, Increased Redness, Foul Smelling Discharge and Swelling at the incision site Call your doctor if you observe: Fever of 101 or Higher, Shortness of breath, Dizziness, Fainting spells, Swelling in the ankles, Chest pain, Prolonged hiccupping and Increased palpitations (irregular heartbeat) Additional Dressing/Incision Instructions:: When dressing is removed, wash and dry incision. Keep covered with a light bandage if it is rubbing against your clothing. Do not cover the incision with an airtight bandage. Change the bandage daily. Do not remove steri strips. The strips will fall off on their own. Follow Up Care Please Follow Up With: Dudley Otero MD Test Results: Test results from this visit will be discussed in further detail at your follow-up appointment, if applicable. Discharge Plan Admission Admit Date/Time: 12/05/21 09:32 Primary Reason for Your Visit: Bradycardia Attending Provider: Ruben Russell Primary Care Provider: Sunday Mcclelland Consulting Providers: Darin Lujan Discharge Orders/Prescriptions Prescriptions: Continued levothyroxine 88 mcg tablet 88 mcg PO MOTUWETHFR RF: 0 simvastatin 20 mg tablet 20 mg PO DAILY RF: 0 cholecalciferol (vitamin D3) [Vitamin D3] 50 mcg (2,000 unit) Tablet 50 mcg PO DAILY RF: 0 calcium 600 mg Capsule 600 mg PO DAILY RF: 0 magnesium 250 mg Tablet 250 mg PO DAILY RF: 0 fluticasone propionate [Flonase Allergy Relief] 50 mcg/actuation [place],Suspension 1 spray INTRANASAL DAILY PRN (Reason: ALLERGIES) RF: 0 tamsulosin [Flomax] 0.4 mg capsule 0.4 mg PO BID RF: 0 melatonin 5 mg Tablet 5 mg PO QHS RF: 0 Referrals / Follow Up: Dudley Otero MD [STAFF PHYSICIAN] - (office to arrange) Sunday Mcclelland MD [Primary Care Provider] - Within 2 Weeks Disposition Disposition (needs filled in before D/C Order can be placed): Home, Self Care
--- NOTE | 2021-12-06 11:10 | DS.PCM_ITS ---
Providers Date of Admission: 12/05/21 Primary Care Physician: Dr. Roula Bentley MD Consultations 12/05/21 05:11 Consult: Cardiology Routine Consulting Provider: Darin Lujan Reason for Consult: Bradycardia and syncope; hx of VSD with repair EMERGENT Consult: No MD Notified: Yes Date Notified: 12/05/21 Time Notified: 06:42 Method of Notification: Text Method of Consult:: In-Person Reason For Visit: SYNCOPE, BRADYCARDIA Diagnosis Discharge Diagnosis (1) Syncope: Status: Acute Code(s): R55 - Syncope and collapse Qualifiers: Syncope type: unspecified Qualified Code(s): R55 - Syncope and collapse (2) Bradycardia: Status: Acute Code(s): R00.1 - Bradycardia, unspecified (3) VSD (ventricular septal defect): Status: Acute Code(s): Q21.0 - Ventricular septal defect (4) Down's syndrome: Status: Acute Code(s): Q90.9 - Down syndrome, unspecified Medications at Discharge Home Medications cholecalciferol (vitamin D3) [Vitamin D3] 50 mcg PO DAILY 06/05/21 levothyroxine 88 mcg PO MOTUWETHFR 06/05/21 simvastatin 20 mg PO DAILY 06/05/21 calcium 600 mg PO DAILY 09/24/21 fluticasone propionate [Flonase Allergy Relief] 1 spray INTRANASAL DAILY PRN 09/24/21 magnesium 250 mg PO DAILY 09/24/21 tamsulosin [Flomax] 0.4 mg PO BID 09/24/21 melatonin 5 mg PO QHS 09/26/21 Hospital Course Operations None Procedures - (pacemaker) Summary of Care Provided Minutes Spent on Discharge: 28 Hospital Course: This is a 51-year-old male with history of Down syndrome had a syncopal episode where he fell down the stairs. Patient has been feeling unwell for weeks prior. Patient noted to be bradycardic but also hypotensive. This felt that his syncopal episode was due to bradycardia patient underwent a pacemaker placement. Since then his heart rate has improved and he is otherwise feeling better. Patient had his pacemaker interrogated today and had no events and patient will be discharged home. Patient does have activity restrictions related with his left upper extremity, the side where his pacemaker is. Patient did remarkably well after his pacemaker placed and will be discharged to home sooner than expected. Physical Exam Const alert and no apparent distress General Appearance: cooperative Neck no lymphadenopathy Resp normal respiratory effort, no retractions, no use of accessory muscles and clear to auscultation bilaterally Cardio regular rate, regular rhythm, S1 normal heart sound and S2 normal heart sound GI normal to inspection, nondistended, normoactive bowel sounds and soft to palpation Weight / BMI Weight Weight: 55.2 kg Body Mass Index (BMI) 24.5 ABG / Lab / Microbiology Data Result Diagrams: 12/05/21 01:26 12/05/21 01:26 Laboratory: Laboratory Results - last 24 hr 12/05/21 11:54: POC Glucose 117 H Radiography Diagnostic Testing: Radiology Impression Echocardiogram 12/05/21 05:55 Interpretation Summary Left ventricular systolic function is normal. The estimated ejection fraction is 60 %. Mildly dilated right ventricle. Mild diffuse mitral valve thickening. Trivial mitral valve insufficiency. Mild tricuspid valve insufficiency. Mild focal aortic valve thickening. Trivial pulmonic valve insufficiency. Right ventricular systolic pressure estimated to be 24 mmHg. No evidence for diastolic dysfunction. Ordering Physician: Darien Nj Referring Physician: ROULA BENTLEY Performed By: Trinidad Child RDCS Chest X-Ray 12/06/21 05:55 IMPRESSION: Pacemaker placement. There is no demonstrated pneumothorax. Other nonacute findings as outlined above. Electronically Signed: Deana Kam MD at 6:32 EDT Reading Location ID and State: , Service support , D/C Instructions Discharge Diet: No restrictions (as you feel able. No excessive stretching. No lifting your arm over your head (keep elbow below shoulder level) until seen for your pacemaker check. Do not lift your elbow away from your side until you are seen for your first visit. Keep the arm sling on if it helps remind you not to lift your arm.) Additional Activity Instructions: May shower or bathe on [day 3]. Do not scrub the incision or soak in the tub. Just wash with soap and let the water run over the incision. Gently pat dry with towel. Medications: Take your pain medication as directed. Refer to your discharge instruction sheet for a list of medications you are to take. Call your doctor if your incision/area has: Continuous Slow Oozing, Sudden Increased Bleeding, Increased Pain/ Swelling, Increased Redness, Foul Smelling Discharge and Swelling at the incision site Call your doctor if you observe: Fever of 101 or Higher, Shortness of breath, Dizziness, Fainting spells, Swelling in the ankles, Chest pain, Prolonged hiccupping and Increased palpitations (irregular heartbeat) Additional Dressing/Incision Instructions: When dressing is removed, wash and dry incision. Keep covered with a light bandage if it is rubbing against your clothing. Do not cover the incision with an airtight bandage. Change the bandage daily. Do not remove steri strips. The strips will fall off on their own. Please Follow Up With: Dudley Otero MD When: Call [phone] for follow up. Pacer appointment on Thursday 12/14 at 1 pm Meaningful Use Info Meaningful Use Diagnoses (Choose all that apply): None applicable Discharge Plan Admission Admit Date/Time: 12/05/21 09:32 Primary Reason for Your Visit: Bradycardia Attending Provider: Ruben Russell Primary Care Provider: Roula Bentley Consulting Providers: Darin Lujan Discharge Orders/Prescriptions Prescriptions: Continued levothyroxine 88 mcg tablet 88 mcg PO MOTUWETHFR RF: 0 simvastatin 20 mg tablet 20 mg PO DAILY RF: 0 cholecalciferol (vitamin D3) [Vitamin D3] 50 mcg (2,000 unit) Tablet 50 mcg PO DAILY RF: 0 calcium 600 mg Capsule 600 mg PO DAILY RF: 0 magnesium 250 mg Tablet 250 mg PO DAILY RF: 0 fluticasone propionate [Flonase Allergy Relief] 50 mcg/actuation [place],Suspension 1 spray INTRANASAL DAILY PRN (Reason: ALLERGIES) RF: 0 tamsulosin [Flomax] 0.4 mg capsule 0.4 mg PO BID RF: 0 melatonin 5 mg Tablet 5 mg PO QHS RF: 0 Referrals / Follow Up: Dudley Otero MD [STAFF PHYSICIAN] - (office to arrange) Roula Bentley MD [Primary Care Provider] - Within 2 Weeks Disposition Disposition (needs filled in before D/C Order can be placed): Home, Self Care Charges/Coding Visit Charges Inpatient E&M: 83760 Disch Hosp
--- NOTE | 2021-12-06 11:42 | NURSING ---
Pt assisted up out of bed to chair. Tolerated without difficulty. Education provided to pt and family about keeping left arm in sling and avoiding lifting.
--- NOTE | 2021-12-10 11:35 | CL.IE_ITS ---
Patient: RAMYA GUILLERMO Study Date: 12/05/2021 Performing: Dudley Otero MD : 1970 Age: 51 Gender: male PROCEDURES PERFORMED [id number])INITIAL PACER INSERT+DUAL LEADS INDICATIONS Sinoatrial node dysfunction/Sick sinus syndrome PROCEDURE DETAILS The patient was brought to the Catheterization Lab in the postabsorptive nonsedated state. Infor med consent was obtained prior to the procedure. Local anesthetic was given subcutaneously to the le ft upper chest area with Lidocaine 2%. Incision was made to the left upper chest. Access was achieved and a guidewire was advanced into the left subclavian vein. A peel-away sheath was inserted into the left subclavian vein. PPM ventricular lead was inserted / positioned to right ventricular apex. PPM ventricular lead testing performed. PPM ventricular lead testing performed. The sheath was then remov ed. A peel-away sheath was inserted into the left subclavian vein. PPM atrial lead was inserted / pos itioned to the right atrial appendage. PPM atrial lead testing performed. The Ventricular PM lead sut ured in place with 2-0 Silk. The Atrial lead sutured in place with 2-0 Silk. Device pocket was irriga dona with antibiotic. PPM generator was attached to the lead(s) and inserted into the pocket. The PPM generator was sutured in place with 2-0 Silk. Subcutaneous closure was completed with 3-0 Vicryl. Skin closure was completed with 4-0 Vicryl. Steri-strips applied to left subclavicular i ncision. The patient tolerated the procedure well. 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: [employer], Model # l111 , Serial # [id number] DEVICE PARAMETERS ATRIAL LEAD PARAMETERS: P wave (mV) - 7.1 Current (mA) - 1.2 threshold (V) - .7 impedence (OHMS) - 620 VENTRICULAR LEAD PARAMETERS: R wave (mV) - 5.3 current (mA) - .9 threshold (V) - .6 impedence (OHMS) - 676 DEVICE PARAMETERS: Mode - ddd lower rate - 50 upper rate - 130 rate response off CONCLUSIONS / RECOMMENDATIONS Device Conclusions: Successful implantation of a dual chamber pacemaker Device Recommendations: Follow up with Primary Care Physician PROCEDURE MEDICATIONS Versed .5 mg IV Fentanyl 25 mcg IV Versed .5 mg IV Fentanyl 25 mcg IV Versed .5 mg IV Fentanyl 25 mcg IV Oxygen: 2 L/min via nasal cannula Clindamycin 900 mg IV 12/05/2021 12:30:48 Signed By Dudley Otero MD On 12/10/2021 11:34:10 Signed By Dudley Otero MD On 12/05/2021 13:54:45 Dudley Otero MD
== END 2021-12-06 12:30 | disposition home or self-care (01) | DRG 244 ==
LOC: ED 04:18 → PCU 04:42
PROVIDERS: Admitting Provider Hospitalist; Emergency Provider Emergency Medicine; PCP Family Medicine
DX: R00.1 Bradycardia, unspecified (principal); E07.9 Disorder of thyroid, unspecified; I95.9 Hypotension, unspecified; I49.5 Sick sinus syndrome; M79.602 Pain in left arm; R55 Syncope and collapse; Q90.9 Down syndrome, unspecified; N39.41 Urge incontinence; Z79.890 Hormone replacement therapy; Z79.899 Other long term (current) drug therapy; Z87.74 Personal history of (corrected) congenital malformations of heart and circulatory system; Z86.73 Personal history of transient ischemic attack (TIA), and cerebral infarction without residual deficits
CPT/HCPCS: 33208; 70450; 71045; 71047; 72125; 73060; 73090; 74177; 80048; 81001; 82962; 83735; 84484; 85025; 87086; 93005; 93306; 97802; 99152; 99153; 99285; J7030; J7040; J7050; Q9967; A4216; C1894

== ENCOUNTER 2022-05-02 13:18 | Emergency (ER) | payer MEDICARE, SELFPAY ==
[2022-05-02 13:20] VITALS: PULSE 78; RESP 17; TEMP 35.6; O2SAT 97; BMI 27.1
[2022-05-02 13:24] VITALS: BP 109/81
--- NOTE | 2022-05-02 13:28 | EX.ED.DYSGE1 ---
HPI History of Present Illness Chief Complaint: Syncope Informant: patient Onset/Context/Timing Onset: Today Context: Sudden Onset Timing: Intermittent Quality: Syncope Location: General Worsened by: Nothing Relieved by: Nothing Narrative Narrative: Patient presents after syncopal episode that occurred today. Patient states he was at work and started to feel hot when he passed out. Patient has a history of syncope and has a pacemaker. Patient was noted to be bradycardic with a prior syncopal episode which prompted the pacemaker placement. Patient denies any chest pain or palpitations. Patient denies any shortness of breath or cough. Patient denies any nausea or vomiting. Patient denies any headaches. Patient is unsure how long he was out for. Patient denies any recent fevers or chills. Patient states he was feeling fine when he went to work today. [facility] Medical History Anxiety BPH (benign prostatic hyperplasia) Congenital heart disease Depression Down's syndrome Down's syndrome Hearing loss, left Hearing loss, right History of echocardiogram Loss of consciousness Non-smoker Presence of permanent cardiac pacemaker (~12/10/21) Stroke, hemorrhagic Thyroid disease VSD (ventricular septal defect) Wears glasses Wears hearing aid Wears hearing aid in both ears Home Medications cholecalciferol (vitamin D3) 50 mcg (2,000 unit) tablet (Vitamin D3) 50 mcg PO DAILY supplement 06/05/21 [History Last Taken 12/04/21] levothyroxine 88 mcg tablet 88 mcg PO MOTUWETHFR thyroid 06/05/21 [History Last Taken 12/04/21] simvastatin 20 mg tablet 20 mg PO DAILY cholesterol 06/05/21 [History Last Taken 12/04/21] calcium 600 mg capsule 600 mg PO DAILY 09/24/21 [History Last Taken 12/04/21] magnesium 250 mg tablet 250 mg PO DAILY 09/24/21 [History Last Taken Unknown] melatonin 5 mg tablet 5 mg PO QHS 09/26/21 [History Last Taken 12/04/21] bupropion HCl 300 mg 24 hr tablet, extended release 300 mg PO DAILY 05/02/22 [History Last Taken Unknown] tamsulosin 0.4 mg capsule 0.4 mg PO QHS 05/02/22 [History Last Taken Unknown] Allergy/AdvReac Type Severity Reaction Status Date / Time latex Allergy PT UNSURE Verified 12/05/21 01:22 OF REACTION Penicillins [PCN] Allergy Rash Verified 12/05/21 01:22 Family History Father No problems noted. Mother No problems noted. Surgical History Hx of cholecystectomy S/P VSD repair Social History household members: family Smoking Status: Never smoker alcohol intake: never substance use type: does not use ROS ROS ED Constitutional Constitutional ED: Denies chills or fever(s) Eyes Eyes: Denies blurry vision or change in vision ENT ENT ED: Denies rhinorrhea or sore throat Cardiovascular Cardiovascular: Denies chest pain or palpitations Respiratory/Chest Respiratory/Chest: Denies cough or dyspnea Gastrointestinal Gastrointestinal: Denies nausea or vomiting Genitourinary Genitourinary ED: Denies dysuria or hematuria Musculoskeletal Musculoskeletal: Denies back pain or neck pain Integumentary Denies abscess or rash Neurologic Neurologic: Denies headache(s) or weakness Allergic/Immunologic Allergic/Immunologic ED: Denies mouth swelling or urticaria EXAM Physical Exam Const Vital Signs: 05/02/22 13:20 05/02/22 13:24 05/02/22 13:24 Temperature 96.1 F L Temperature Source Temporal Pulse Rate 78 Pulse Rate [Lying] Pulse Rate [Sitting (for 1 minute prior to obtaining)] Respiratory Rate 17 Respiratory Effort Normal Non-Labored Respiratory Pattern Normal Blood Pressure 109/81 H Blood Pressure [Lying] Blood Pressure [Sitting (for 1 minute prior to obtaining)] Blood Pressure [Standing (for 1 minute prior to obtaining)] Blood Pressure Mean 90 Blood Pressure Mean [Lying] Blood Pressure Mean [Sitting (for 1 minute prior to obtaining)] Blood Pressure Mean [Standing (for 1 minute prior to obtaining)] Pulse Ox 97 Oxygen Delivery Method Room Air 05/02/22 14:22 Temperature Temperature Source Pulse Rate Pulse Rate [Lying] 72 Pulse Rate [Sitting (for 1 minute prior to obtaining)] 68 Respiratory Rate Respiratory Effort Respiratory Pattern Blood Pressure Blood Pressure [Lying] 108/51 L Blood Pressure [Sitting (for 1 minute prior to obtaining)] 97/70 Blood Pressure [Standing (for 1 minute prior to obtaining)] 102/65 Blood Pressure Mean Blood Pressure Mean [Lying] 70 Blood Pressure Mean [Sitting (for 1 minute prior to obtaining)] 79 Blood Pressure Mean [Standing (for 1 minute prior to obtaining)] 77 Pulse Ox Oxygen Delivery Method Positive well nourished and well developed General Appearance ED: well developed and NAD HEENT Reports moist mucous membranes Neck supple and no JVD Resp normal respiratory effort and clear to auscultation bilaterally Cardio regular rate, regular rhythm and no murmurs GI normal to inspection, nondistended, normoactive bowel sounds and non-tender Palpation: soft Extremity normal to inspection General Extremety ED: Negative for edema or tenderness General Extremity: Negative for edema Neuro oriented x3, CN's II-XII intact bilaterally and no sensory deficits noted Sensorium / Orientation: alert Motor Exam: strength 5/5 throughout Psych mental status grossly normal Skin no rashes or lesions noted MDM MDM MDM Narrative Medical decision making narrative: EKG was obtained. On my interpretation, it showed a normal sinus rhythm with a rate of 69. AR interval, QRS interval, and QTc intervals were all normal. [place] was normal. There are nonspecific ST-T wave changes. CT scan of the brain was obtained. There is no acute intracranial abnormality. There are chronic involutional changes. This was interpreted by the radiologist and reviewed by myself. CBC was within normal limits. Comprehensive metabolic profile was within normal limits. High-sensitivity troponin was normal. TSH was normal. Urinalysis does not show any evidence of urinary tract infection. Patient and family were advised of his findings. Patient feels better and wants to go home. Patient was instructed to follow-up with his primary care physician in 5 to 7 days for further evaluation. Patient and family understood and were agreeable with the plan. All questions were answered. Lab Data Attestation: I reviewed the patient's lab results. Labs: Laboratory Results - last 24 hr 05/02/22 05/02/22 05/02/22 13:10 13:10 14:20 WBC 6.2 RBC 4.49 L Hgb 14.8 Hct 43.2 MCV 96.2 H MCH 33.0 H MCHC 34.3 RDW Std Deviation 48.8 H RDW Coeff of Annelise 13.8 Plt Count 200 MPV 9.0 Immature Gran % (Auto) 0.300 Neut % (Auto) 63.6 Lymph % (Auto) 24.6 [place] % (Auto) 7.6 Eos % (Auto) 2.9 Baso % (Auto) 1.0 Absolute Neuts (auto) 3.9 Absolute Lymphs (auto) 1.51 Nucleated RBC % 0 Sodium 142 Potassium 3.8 Chloride 110 H Carbon Dioxide 28.0 Anion Gap 4 L BUN 17 Creatinine 1.11 Estim Creat Clear Calc 67.07 Est GFR (MDRD) Af Amer 90 Est GFR (MDRD) Non-Af 75 BUN/Creatinine Ratio 15.3 Glucose 133 H Calcium 8.8 Total Bilirubin 0.40 AST 25 ALT 43 Alkaline Phosphatase 104 Troponin I High Sens 10 Total Protein 6.9 Albumin 3.5 Globulin 3.4 Albumin/Globulin Ratio 1.0 TSH 0.98 Urine Color Yellow Urine Clarity Clear Urine pH 6.0 Ur Specific Adkins 1.020 Urine Protein 15 H Urine Glucose (UA) Normal Urine Ketones Negative Urine Occult Blood Negative Urine Nitrite Negative Urine Bilirubin Negative Urine Urobilinogen Normal Ur Leukocyte Esterase Negative Urine RBC 0 SEEN Urine WBC 0 SEEN Ur Squamous Epith Cells 0 SEEN Urine Bacteria 0 SEEN Urine Mucus 0 SEEN Radiography Diagnostic Testing: Clinical Impression(s) from Imaging Studies Brain CT 05/02/22 13:34 IMPRESSION: Chronic involutional changes of the brain. Electronically Signed: Kirk Arvizu MD at 14:21 EDT , EKG Initial EKG: Attestation: I personally reviewed and interpreted this EKG as follows: Interpretation: Sinus Rhythm (69) and Non-Specific ST Changes Prior EKG tracings: available for review Prior: Unchanged (12/05/2021) Discharge Plan Triage Chief Complaint: Syncope ED Provider: Ruben Briseno Dx/Rx/DC Orders Clinical Impression: Syncope and collapse, Presence of permanent cardiac pacemaker, S/P VSD repair Instructions: ED Fainting, Uncertain Cause Prescriptions: No Action levothyroxine 88 mcg tablet 88 mcg PO MOTUWETHFR Label Comments: TAKE ONE TABLET BY MOUTH ONCE DAILY TAKE ON EMPTY STOMACH Rx Instructions: HALF DOSE ON SA simvastatin 20 mg tablet 20 mg PO DAILY Label Comments: TAKE 1 TABLET BY MOUTH EVERYDAY AT BEDTIME cholecalciferol (vitamin D3) [Vitamin D3] 50 mcg (2,000 unit) Tablet 50 mcg PO DAILY calcium 600 mg Capsule 600 mg PO DAILY magnesium 250 mg Tablet 250 mg PO DAILY melatonin 5 mg Tablet 5 mg PO QHS tamsulosin 0.4 mg capsule 0.4 mg PO QHS Label Comments: TAKE 1 CAPSULE BY MOUTH TWICE A DAY bupropion HCl 300 mg tablet extended release 24 hr 300 mg PO DAILY Label Comments: TAKE 1 TABLET BY MOUTH EVERY DAY Primary Care Provider: Sunday Mcclelland Referrals: Sunday Mcclelland MD [Primary Care Provider] - 5-7 Days Disposition Disposition: Home, Self Care
--- NOTE | 2022-05-02 13:34 | EKG12_ITS ---
Test Reason : Syncope Blood Pressure : / mmHG Vent. Rate : 069 BPM Atrial Rate : 069 BPM P-R Int : 158 ms QRS Dur : 086 ms QT Int : 416 ms P-R-T Axes : 043 039 030 degrees QTc Int : 445 ms Normal sinus rhythm Nonspecific ST and T wave abnormality Abnormal ECG Confirmed by MATEO PARKER, SHAYNE ([id number]), supervising editor news reel JOSE ARITA ([id number]) on 05/03/2022 1:44:35 PM Referred By: Suzanna Confirmed By:SHAYNE GALINDO MD
--- NOTE | 2022-05-02 13:34 | CT_ITS ---
STUDY: CT BRAIN WITHOUT CONTRAST REASON FOR EXAM: Male, 51 years old. Syncope RADIATION DOSAGE (If Supplied By Facility): CTDIvol = ( 47.06 ) mGy, DLP = ( 872.68 ) mGycm TECHNIQUE: Transaxial CT imaging of the brain was performed without administration of intravenous contrast material. Individualized dose optimization techniques were used for this CT. COMPARISON: 12/05/2021 FINDINGS: Normal soft tissue structures. Normal calvarium. There is mild cerebral atrophy with widening of the extra-axial spaces and ventricular dilatation. There are areas of decreased attenuation within the white matter tracts of the supratentorial brain, consistent with microvascular disease changes. Normal basal ganglia and thalami. Normal brainstem. Normal cerebellum. There is no intracranial hemorrhage. Encephalomalacia in the right parietal lobe consistent with a chronic infarct. Normal visualized paranasal sinuses. CT/Brain/Head without Contrast IMPRESSION: Chronic involutional changes of the brain. Electronically Signed: Kirk Arvizu MD at 14:21 EDT ,
[2022-05-02 13:50] LABS: Absolute Lymphocyte Count 1.51 X10^3/uL (0.83-4.51); Absolute Neutrophil Count 3.9 X10^3/uL (2.0-7.7); Basophil# 0.06 X10^3/uL; Eosinophil# 0.18 X10^3/uL; Eosinophils% 2.9 % (0-5); Hematocrit 43.2 % (40-54); Hemoglobin 14.8 g/dL (13.0-16.5); Lymphocyte # 1.51 X10^3/ul (0.83-4.51); Lymphocyte % 24.6 % (19-41); Mean Corp Hgb Conc 34.3 g/dL (32-36); Mean Corpuscular Volume 96.2 fL (80-94); Monocyte# 0.47 X10^3/uL; Monocyte% 7.6 % (0-10); NRBC Flagged by Analyzer 0 % (0-5); Neutrophil # 3.91 X10^3/uL (2.7-7.7); Neutrophil % 63.6 % (47-70); Platelet Count 200 K/mm3 (150-450); RBC Distribution Width CV 13.8 % (11.6-14.6); RBC Distribution Width SD 48.8 fl (35.1-43.9); Red Blood Count 4.49 M/mm3 (4.6-6.2); White Blood Count 6.2 K/mm3 (4.4-11.0)
[2022-05-02 14:15] LABS: AST(SGOT) 25 U/L (15-37); Alanine Aminotransfer ALT/SGPT 43 U/L (16-61); Albumin, Serum 3.5 g/dL (3.2-5.0); Alkaline Phosphatase 104 U/L (45-117); Anion Gap 4 (5-15); BUN 17 mg/dL (7-18); BUN/Creat Ratio 15.3 RATIO (10-20); Calcium,Total 8.8 mg/dL (8.5-10.1); Chloride 110 mmol/L (98-107); Creatinine, Serum 1.11 mg/dL (0.70-1.30); EST Glomerular Filtration Rate 75 mL/min (>60); Est Glom Filt Rate - Afr Amer 90 mL/min (>60); Estimated Creatinine Clearance 67.07 ml/min; Globulin 3.4 g/dL (2.2-4.2); Glucose 133 mg/dL (74-106); Potassium 3.8 mmol/L (3.5-5.1); Protein, Total 6.9 g/dL (6.4-8.2); Sodium Level 142 mmol/L (136-145); Thyroid Stim Hormone (TSH) 0.98 uIU/mL (0.358-3.74); Troponin-I HS 10 pg/mL (3.0-78.0)
[2022-05-02 14:22] VITALS: BP 102/65; BP 108/51; BP 97/70; PULSE 68; PULSE 72
[2022-05-02 14:34] LABS: Bacteria 0 SEEN /hpf (None Seen); Mucous, Urine 0 SEEN /hpf (<or=2+); Red Blood Cells-Urine 0 SEEN /hpf (0-5); Squamous Epithelial Cells - UA 0 SEEN /hpf (0-5); White Blood Cells 0 SEEN /hpf (0-5)
[2022-05-02 14:35] LABS: Color, Urine Yellow (Yellow); Glucose, Dipstick Normal (Normal); Ketone-Dipstick Negative (Negative); Leukocyte Esterase-Dipstick Negative /ul (Negative); Nitrite-Dipstick Negative (Negative); Occult Blood-Urine Negative /ul (Negative); Protein-Dipstick 15 mg/dl (Negative); Urine Bilirubin Dipstick Negative (Negative); Urine Clarity Clear (Clear); Urine Urobilinogen Normal (Normal)
[2022-05-02 15:23] VITALS: BP 102/71; PULSE 68; RESP 17; O2SAT 100
== END 2022-05-02 15:24 | disposition home or self-care (01) ==
PROVIDERS: Emergency Provider Emergency Medicine; PCP Family Medicine; Visit Provider Emergency Medicine
DX: R55 Syncope and collapse (principal); X30.XXXA Exposure to excessive natural heat, initial encounter; R00.1 Bradycardia, unspecified; F41.9 Anxiety disorder, unspecified; F32.A Depression, unspecified; Z95.0 Presence of cardiac pacemaker; Y99.0 Civilian activity done for income or pay
CPT/HCPCS: 70450; 80053; 81001; 84443; 84484; 85025; 93005; 99285; A4216

== ENCOUNTER 2023-02-28 10:44 | Inpatient (IN) | payer MEDICARE, SELFPAY ==
[2023-02-28] VITALS (13 sets, daily range): BP systolic 101–122; BP diastolic 67–91; PULSE 70–91; RESP 14–20; TEMP 35.6–37; O2SAT 95–100; BMI 23.6; BMI 23.2
--- NOTE | 2023-02-28 11:05 | EKG12_ITS ---
Test Reason : STROKE Blood Pressure : / mmHG Vent. Rate : 081 BPM Atrial Rate : 081 BPM P-R Int : 160 ms QRS Dur : 094 ms QT Int : 394 ms P-R-T Axes : 060 059 021 degrees QTc Int : 457 ms Normal sinus rhythm Incomplete right bundle branch block Cannot rule out Inferior infarct , age undetermined Abnormal ECG Confirmed by DRE PARKER, SHERRILL ([id number]), book or script editor JOSE ARITA ([id number]) on 03/03/2023 1:36:47 PM Referred By: RAUL Confirmed By:SHERRILL ERICKSON MD
--- NOTE | 2023-02-28 11:05 | CT_ITS ---
STUDY: CT HEAD STROKE PROTOCOL W/O CONTRAST INJECTION REASON FOR EXAM: Male, 52 years old. Neuro deficit, acute, stroke suspected RADIATION DOSAGE (If Supplied By Facility): CTDIvol = ( 44.99 ) mGy, DLP = ( 762.36 ) mGycm TECHNIQUE: Transaxial CT imaging of the brain was performed without administration of intravenous contrast material. Individualized dose optimization techniques were used for this CT. COMPARISON: Comparison is made with prior study May 02, 2022 and December 05, 2021. FINDINGS: Normal soft tissue structures. Normal calvarium. There is mild cerebral atrophy with widening of the extra-axial spaces and ventricular dilatation. Once again, there are areas of decreased attenuation in the white matter in the right frontal and parietal lobes in keeping with old infarction. Compensatory dilatation of the right lateral ventricle. Persistent increased density in the body of the right caudate nucleus. This is unchanged. Normal basal ganglia and thalami. Normal brainstem. Normal cerebellum. There is no intracranial hemorrhage. There are no findings of an acute ischemic infarction. Normal visualized paranasal sinuses. ASPECT score: 8 CT/STROKE Brain/Head without Cont IMPRESSION: Chronic involutional changes of the brain. N.B. : The above Results were Read Back by Alex Atkinson MD to Dr Suzanna DO, and understanding confirmed on 02/28/2023 11:24:52 (ET). Electronically Signed: Alex Atkinson MD at 11:26 EDT ,
--- NOTE | 2023-02-28 11:05 | ED.VIS.STROK ---
HPI History of Present Illness Chief Complaint: Alt LOC Informant: patient Onset/Context/Timing Onset: Today Context: Sudden Onset Timing: Continuous Quality and Location: Positive for Left Arm Weakness (Left hand) Onset: Approximately 8:45 AM today Worsened by: Nothing Relieved by: Nothing Narrative Narrative: Patient presents after being found laying in his yard this morning. Family states that when he woke up today he did his normal daily activities and got himself dressed without difficulty. After they found him laying in the yard and got him up, family noticed that he was having difficulty moving his left hand. Family states that he has a history of prior intracranial bleeding and had some residual weakness of his left hand after that. Family states that today the weakness became suddenly worse. Family states patient has a history of partial seizures. Family is unsure if the patient had a partial seizure this morning. [facility] Medical History Anxiety BPH (benign prostatic hyperplasia) Congenital heart disease Depression Down's syndrome Down's syndrome Hearing loss, left Hearing loss, right History of echocardiogram Loss of consciousness Non-smoker Presence of permanent cardiac pacemaker (~12/10/21) Stroke, hemorrhagic Thyroid disease VSD (ventricular septal defect) Wears glasses Wears hearing aid Wears hearing aid in both ears Home Medications cholecalciferol (vitamin D3) 50 mcg (2,000 unit) tablet (Vitamin D3) 50 mcg PO DAILY supplement 06/05/21 [History Last Taken 02/28/23] simvastatin 20 mg tablet 20 mg PO DAILY cholesterol 06/05/21 [History Last Taken 02/27/23] melatonin 5 mg tablet 5 mg PO QHS 09/26/21 [History Last Taken 02/27/23] bupropion HCl 300 mg 24 hr tablet, extended release 300 mg PO DAILY 05/02/22 [History Last Taken 02/28/23] levetiracetam 500 mg tablet 750 mg PO BID 07/24/22 [History Last Taken 02/28/23] cetirizine 10 mg tablet (Zyrtec) 10 mg PO DAILY PRN ALLERGIES 02/25/23 [History Last Taken 02/28/23] levothyroxine 100 mcg tablet 100 mcg PO MOTUWETHFRSA THYROID 02/28/23 [History Last Taken 02/28/23] Allergy/AdvReac Type Severity Reaction Status Date / Time latex Allergy PT UNSURE Verified 02/28/23 10:44 OF REACTION Penicillins [PCN] Allergy Rash Verified 02/28/23 10:44 Family History Father No problems noted. Mother No problems noted. Surgical History Hx of cholecystectomy S/P VSD repair Social History household members: family Smoking Status: Never smoker alcohol intake: never substance use type: does not use ROS ROS ED Constitutional Constitutional ED: Denies chills or fever(s) Eyes Eyes: Denies blurry vision or change in vision ENT ENT ED: Denies rhinorrhea or sore throat Cardiovascular Cardiovascular: Denies chest pain or palpitations Respiratory/Chest Respiratory/Chest: Denies cough or dyspnea Gastrointestinal Gastrointestinal: Denies nausea or vomiting Genitourinary Genitourinary ED: Denies dysuria or hematuria Musculoskeletal Musculoskeletal: Denies back pain or neck pain Integumentary Denies abscess or rash Neurologic Neurologic: Reports weakness; Denies headache(s) Allergic/Immunologic Allergic/Immunologic ED: Denies mouth swelling or urticaria EXAM Physical Exam Const Vital Signs: 02/28/23 10:45 02/28/23 11:05 02/28/23 11:15 Temperature 98.6 F Temperature Source Temporal Pulse Rate 82 79 Respiratory Rate 16 16 Blood Pressure 119/81 H 108/76 Blood Pressure Mean 93 86 Pulse Ox 96 97 Oxygen Delivery Method Room Air Room Air Room Air 02/28/23 11:36 02/28/23 12:05 02/28/23 12:30 Temperature 96.1 F L Temperature Source Temporal Pulse Rate 82 75 72 Respiratory Rate 20 H 16 14 Blood Pressure 115/79 106/84 H 111/91 H Blood Pressure Mean 91 91 97 Pulse Ox 100 95 99 Oxygen Delivery Method Room Air Room Air Room Air 02/28/23 13:00 02/28/23 13:30 02/28/23 14:00 Temperature Temperature Source Pulse Rate 73 72 81 Respiratory Rate 18 14 17 Blood Pressure 101/88 H 117/82 H 106/84 H Blood Pressure Mean 92 93 91 Pulse Ox 100 99 99 Oxygen Delivery Method Room Air Room Air Room Air Positive well nourished and well developed General Appearance ED: well developed and NAD HEENT Reports moist mucous membranes Neck supple and no JVD Resp normal respiratory effort and clear to auscultation bilaterally Cardio regular rate and regular rhythm GI normal to inspection, nondistended, normoactive bowel sounds and non-tender Palpation: soft Extremity normal to inspection General Extremety ED: Negative for edema or tenderness General Extremity: Negative for edema Neuro oriented x3, CN's II-XII intact bilaterally and no sensory deficits noted Neuro Narrative: There is some decreased strength with left hand grasp. Patient is able to hold both extremities off the bed for 10 seconds. Patient is able to hold both legs off of the bed for 5 seconds. Connelly Coma Scale: document GCS findings Spontaneous Obeys Commands Oriented 15 Sensorium / Orientation: alert Psych mental status grossly normal Skin no rashes or lesions noted NIHSS NIHSS Initial: 1a Level of Consciousness: 0 1b LOC Questions (Score 2 if aphasic/stupor): 0 1c LOC Commands (Only score 1st attempt): 0 2 Best Gaze (If aphasic, use reflexive mvmts.): 0 3 Visual: 0 4 Facial Palsy: 0 5 Motor Arm Right (UN = amputation/fusion): 0 5 Motor Arm Left: 1 6 Motor Leg Right: 0 6 Motor Leg Left: 0 8 Sensory (Aphasia/stupor=0 or 1, coma=2): 0 9 Best Language: 0 10 Dysarthria (mute, coma=2, intubated=UN): 0 11 Extinction and Inattention (only scored if +): 0 Total Score: 1 MDM MDM MDM Narrative Medical decision making narrative: Differential diagnosis includes intracranial bleeding, stroke, seizure with Bo's paralysis, cardiac dysrhythmia, and electrolyte abnormality. Stroke alert was called since his last known well was less than 3 hours prior to examination. CT scan of the brain will be obtained to assess for intracranial bleeding and stroke. Chest x-ray will be obtained to assess for pneumonia. EKG will be obtained to assess for cardiac dysrhythmia and cardiac ischemia. CBC will be obtained to assess for leukocytosis and anemia. Basic metabolic profile will be obtained to assess for electrolyte abnormality and renal function. High-sensitivity troponin will be obtained to assess for cardiac ischemia. PT with INR and PTT will be obtained to assess for coagulopathy. Lab Data Attestation: I reviewed the patient's lab results. Lab results narrative: CBC was reviewed and was essentially within normal limits. PT was INR and PTT were reviewed and were within normal limits. Basic metabolic profile was reviewed and was normal. High-sensitivity troponin was reviewed and was normal. Labs: Laboratory Results - last 24 hr 02/28/23 02/28/23 02/28/23 11:06 11:06 11:06 WBC 5.8 RBC 5.01 Hgb 16.8 H Hct 49.9 MCV 99.6 H MCH 33.5 H MCHC 33.7 RDW Std Deviation 51.8 H RDW Coeff of Annelise 14.2 Plt Count 191 MPV 9.0 Immature Gran % (Auto) 0.300 Neut % (Auto) 65.2 Lymph % (Auto) 20.7 [place] % (Auto) 8.6 Eos % (Auto) 3.5 Baso % (Auto) 1.7 H Absolute Neuts (auto) 3.8 Absolute Lymphs (auto) 1.20 Nucleated RBC % 0 PT 13.6 INR 1.0 APTT 30.2 Sodium 138 Potassium 4.2 Chloride 106 Carbon Dioxide 28.0 Anion Gap 4 L BUN 21 H Creatinine 1.20 Estim Creat Clear Calc 52.08 Est GFR (MDRD) Af Amer 82 Est GFR (MDRD) Non-Af 68 BUN/Creatinine Ratio 17.5 Glucose 100 Calcium 9.3 Troponin I High Sens 10 POC Glucose 02/28/23 11:16 WBC RBC Hgb Hct MCV MCH MCHC RDW Std Deviation RDW Coeff of Annelise Plt Count MPV Immature Gran % (Auto) Neut % (Auto) Lymph % (Auto) [place] % (Auto) Eos % (Auto) Baso % (Auto) Absolute Neuts (auto) Absolute Lymphs (auto) Nucleated RBC % PT INR APTT Sodium Potassium Chloride Carbon Dioxide Anion Gap BUN Creatinine Estim Creat Clear Calc Est GFR (MDRD) Af Amer Est GFR (MDRD) Non-Af BUN/Creatinine Ratio Glucose Calcium Troponin I High Sens POC Glucose 125 H Radiography Diagnostic Testing: Clinical Impression(s) from Imaging Studies Brain CT 02/28/23 11:05 IMPRESSION: Chronic involutional changes of the brain. N.B. : The above Results were Read Back by Alex Atkinson MD to Dr Suzanna DO, and understanding confirmed on 02/28/2023 11:24:52 (ET). Electronically Signed: Alex Atkinson MD at 11:26 EDT , Head/Neck CTA 02/28/23 11:41 IMPRESSION: Normal CTA Head and neck with contrast. N.B. : The above Results were Read Back by Alex Atkinson MD to Dr Suzanna DO, and understanding confirmed on 02/28/2023 12:06:56 (ET). Electronically Signed: Alex Atkinson MD at 12:08 EDT , Chest X-Ray 02/28/23 11:42 IMPRESSION: No acute abnormality is seen. Electronically Signed: Alex Atkinson MD at 12:19 EDT , CT scan of the brain was obtained. There is an old bleed in the right basal ganglia and it was unchanged compared to previous CT scan. This was interpreted by the radiologist and was also independently reviewed by myself. CTA of the head and neck was obtained. There is no evidence of large vessel occlusion or aneurysm. This was interpreted by the radiologist and was also independently reviewed by myself. Portable 1 view chest x-ray was obtained. On my independent interpretation, lung glasgow are clear. There is normal cardiac silhouette. Bony thorax is normal. There is no acute process noted. Radiologist also interpreted the x-ray and agrees. EKG Initial EKG: Attestation: I personally reviewed and interpreted this EKG as follows: Interpretation: Sinus Rhythm (81), No Acute Injury Pattern and RBBB (Incomplete) Comments: EKG was obtained. On my independent interpretation, it showed a normal sinus rhythm with a rate of 81. DC interval, QRS interval, and QTc intervals were all normal. [place] was normal. There are no acute ST or T wave changes. Prior EKG tracings: available for review Prior: Unchanged (05/02/2022) Management Discussion w/another healthcare provider: Hospitalist (Dr. Sims) Treatment and Re-Evaluation Narrative: Stroke alert was called. Patient was evaluated by stroke neurologist from [facility], Dr. Rodas. He did not recommend giving tenecteplase due to the previous bleed and low NIH scale. He did recommend further work-up and admission. Patient and family were advised of the findings. Case was discussed with the hospitalist. He will admit the patient to his service. Patient and family understood and were agreeable with the plan. All questions were answered. 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
--- NOTE | 2023-02-28 11:14 | ED.RN ---
1103 [facility] CONTACTED INITIAL INFORMATION GIVEN. PT IN CT. 1114 [facility] CONTACTED, INFORMED OF PT RETURN FROM CT.
[2023-02-28 11:18] LABS: Absolute Neutrophil Count 3.8 X10^3/uL (2.0-7.7); Basophil% 1.7 % (0-1); Eosinophils% 3.5 % (0-5); Hematocrit 49.9 % (40-54); Hemoglobin 16.8 g/dL (13.0-16.5); Lymphocyte % 20.7 % (19-41); Mean Corp Hgb Conc 33.7 g/dL (32-36); Mean Corpuscular Hgb 33.5 pg (27.0-32.0); Mean Corpuscular Volume 99.6 fL (80-94); Monocyte% 8.6 % (0-10); NRBC Flagged by Analyzer 0 % (0-5); Neutrophil # 3.77 X10^3/uL (2.7-7.7); Neutrophil % 65.2 % (47-70); Platelet Count 191 K/mm3 (150-450); RBC Distribution Width CV 14.2 % (11.6-14.6); RBC Distribution Width SD 51.8 fl (35.1-43.9); Red Blood Count 5.01 M/mm3 (4.6-6.2); White Blood Count 5.8 K/mm3 (4.4-11.0)
[2023-02-28 11:28] LABS: Prothrombin Time (Protime)PT. 13.6 SECONDS (11.7-14.9)
[2023-02-28 11:29] LABS: Partial Thromboplast Time 30.2 Seconds (24.1-36.2)
[2023-02-28 11:35] LABS: Bedside Glucose 125 mg/dL (74-106)
--- NOTE | 2023-02-28 11:41 | CT_ITS ---
STUDY: CTA HEAD AND NECK WITH CONTRAST REASON FOR EXAM: Male, 52 years old. Stroke RADIATION DOSAGE (If Supplied By Facility): CTDIvol = ( 21.21 ) mGy, DLP = ( 602.97 ) mGycm TECHNIQUE: CT angiography was performed with a multi-detector CT scanner. Data acquisition was obtained from the skull base through the vertex following intravenous administration of IV 75mL Isovue-370. MIP images were reconstructed from the axial data set. Post-processing of the angiographic images was performed, with multiplanar reformation and 3D reconstruction. Individualized dose optimization techniques were used for this CT. COMPARISON: No relevant priors. FINDINGS: Normal bilateral petrous carotid arteries. Normal right cavernous carotid artery with a normal supraclinoid bifurcation. Normal left cavernous carotid artery with a normal supraclinoid bifurcation. Normal right A1 segments of the anterior cerebral artery. Normal left A1 segments of the anterior cerebral artery. Normal intact anterior communicating artery (ACOM). Normal bilateral A2 segments of the anterior cerebral arteries. Normal right M1 and M2 segments of the middle cerebral arteries, with a normal M1 bifurcation. Normal left M1 and M2 segments of the middle cerebral arteries, with a normal M1 bifurcation. Normal right posterior communicating artery (PCOM). Normal left posterior communicating artery (PCOM). Normal bilateral vertebral arteries. Normal basilar artery with a normal basilar bifurcation. The visualized bilateral superior cerebellar (SCA) arteries are normal. Normal bilateral P1, P2 and visualized P3 segments of the posterior cerebral arteries. There is no demonstrated aneurysm of the [place]. AORTIC ARCH: Normal visualized aortic arch. Normal origins of the brachiocephalic, left common carotid, and left subclavian arteries. RIGHT CAROTID ARTERIES: Normal right common carotid artery (CCA). Normal right common carotid bulb. Normal origin of the right internal carotid (ICA) artery without a hemodynamically significant stenosis. Normal visualized cervical portion of the right internal carotid artery. Normal origin of the right external carotid artery (ECA). LEFT CAROTID ARTERIES: Normal left common carotid artery (CCA). Normal left common carotid bulb. Normal origin of the left internal carotid (ICA) artery without a hemodynamically significant stenosis. Normal visualized cervical portion of the left internal carotid artery. Normal origin of the left external carotid artery (ECA). VERTEBRAL ARTERIES: There is enhancement within the bilateral vertebral arteries with a small right vertebral artery, and a dominant left vertebral artery. CT/STROKE CTA Head AND Neck W/Con IMPRESSION: Normal CTA Head and neck with contrast. N.B. : The above Results were Read Back by Alex Atkinson MD to Dr Suzanna DO, and understanding confirmed on 02/28/2023 12:06:56 (ET). Electronically Signed: Alex Atkinson MD at 12:08 EDT ,
[2023-02-28 11:42] LABS: Anion Gap 4 (5-15); BUN 21 mg/dL (7-18); BUN/Creat Ratio 17.5 RATIO (10-20); Calcium,Total 9.3 mg/dL (8.5-10.1); Chloride 106 mmol/L (98-107); EST Glomerular Filtration Rate 68 mL/min (>60); Est Glom Filt Rate - Afr Amer 82 mL/min (>60); Estimated Creatinine Clearance 52.08 ml/min; Glucose 100 mg/dL (74-106); Potassium 4.2 mmol/L (3.5-5.1); Sodium Level 138 mmol/L (136-145); Troponin-I HS 10 pg/mL (3.0-78.0)
--- NOTE | 2023-02-28 11:42 | RAD_ITS ---
STUDY: X-RAY CHEST REASON FOR EXAM: Male, 52 years old. Neuro deficit, acute, stroke suspected TECHNIQUE: Single AP portable view of the chest. COMPARISON: Comparison is made with prior study December 06, 2021. FINDINGS: EKG electrodes are seen. The lungs are clear and expanded. There is no demonstrated pleural abnormality. Sternal cerclage wires are present from a prior sternotomy. A left-sided dual-chamber pacemaker is seen. Normal mediastinum and ang. Normal visualized pulmonary arteries. Normal visualized aortic arch and descending thoracic aorta. Normal visualized thoracic spine. Normal visualized ribs, clavicles, and shoulders. There is no demonstrated abnormality of the visualized soft tissue structures of the upper abdomen. RAD/Chest 1 View IMPRESSION: No acute abnormality is seen. Electronically Signed: Alex Atkinson MD at 12:19 EDT ,
--- NOTE | 2023-02-28 13:27 | PCM.HP.STD ---
[facility] - General General Date of Service: 02/28/23 Chief Complaint: Found laying on the yard. HPI Narrative RAMYA GUILLERMO, is a 52 M with history of Down syndrome, seizure in October 2022 woke up fine and doing normal daily activities. He dressed himself for his routine appointment [facility] for group meeting for mental health and went outside the deck waiting for the bus to pick him up. After that patient's sister found him laying on the floor with face down and left hand under his chest. When his mother called him he was unaware, confused but looked better. It took some time for come back to his baseline. Patient right now is in baseline with mild some residual weakness of left hand. Patient had prior intracranial bleed in 2012 and he was managed with bur hole and drainage of bleed. Stroke alert was called in ED and patient was evaluated by [facility]. NIH stroke scale was found 1 for left hand weakness. CTA head and neck reported normal. Patient was recommended admission for further work-up. As per the parents he is on antiepileptic medication Keppra. The patient mother stated that probably he might be considered to be started on lamotrigine on next visit. Twelve-lead EKG shows normal sinus rhythm incomplete RBBB at 81 bpm, QTc 4 and 57 seconds. FORMERLY [facility], [facility] Medical History Anxiety BPH (benign prostatic hyperplasia) Congenital heart disease Depression Down's syndrome Down's syndrome Hearing loss, left Hearing loss, right History of echocardiogram Loss of consciousness Non-smoker Presence of permanent cardiac pacemaker (~12/10/21) Stroke, hemorrhagic Thyroid disease VSD (ventricular septal defect) Wears glasses Wears hearing aid Wears hearing aid in both ears Home Medications cholecalciferol (vitamin D3) 50 mcg (2,000 unit) tablet (Vitamin D3) 50 mcg PO DAILY supplement 06/05/21 [History Last Taken 02/28/23] simvastatin 20 mg tablet 20 mg PO DAILY cholesterol 06/05/21 [History Last Taken 02/27/23] melatonin 5 mg tablet 5 mg PO QHS 09/26/21 [History Last Taken 02/27/23] bupropion HCl 300 mg 24 hr tablet, extended release 300 mg PO DAILY 05/02/22 [History Last Taken 02/28/23] levetiracetam 500 mg tablet 750 mg PO BID 07/24/22 [History Last Taken 02/28/23] cetirizine 10 mg tablet (Zyrtec) 10 mg PO DAILY PRN ALLERGIES 02/25/23 [History Last Taken 02/28/23] levothyroxine 100 mcg tablet 100 mcg PO MOTUWETHFRSA THYROID 02/28/23 [History Last Taken 02/28/23] Allergy/AdvReac Type Severity Reaction Status Date / Time latex Allergy PT UNSURE Verified 02/28/23 10:44 OF REACTION Penicillins [PCN] Allergy Rash Verified 02/28/23 10:44 Family History Father No problems noted. Mother No problems noted. Surgical History Hx of cholecystectomy S/P VSD repair Social History household members: family Smoking Status: Never smoker alcohol intake: never substance use type: does not use ROS ROS Narrative 14 system ROS mainly collected from parents near the bedside. Patient has Down syndrome therefore is limited comprehensive and memory Constitutional: Reports fatigue and weakness. No fever. HEENT: Bilateral hearing loss, uses hearing aid. Reports systems reviewed and no addt'l complaints, except as documented Respiratory/Chest: No acute shortness of breath or respiratory distress or wheezing. CVS: History of VSD and open heart surgery at 8 years of age. No chest pain or tightness. Gastrointestinal: Denies coffee ground emesis, hematemesis or vomiting Genitourinary: No acute urinary incontinence. Denies burning urination or new urinary tract symptoms Musculoskeletal: Denies acute joint pain or limited range of motion. Scratch over left hand mild abrasion. Neurologic: History of seizure in the past and stroke in 2013. skin: No ulcer. Mild abrasion in left hand. Endocrinology: Reports systems reviewed and no addt'l complaints, except as documented Hematologic/Lymphatic: Reports systems reviewed and no addt'l complaints, except as documented Rest 14 ROS are negative except as mentioned in HPI Vital Signs Vital Signs Vital Signs: 02/28/23 10:45 02/28/23 11:05 02/28/23 11:15 Temperature 98.6 F Temperature Source Temporal Pulse Rate 82 79 Respiratory Rate 16 16 Blood Pressure 119/81 H 108/76 Blood Pressure Mean 93 86 Pulse Ox 96 97 Oxygen Delivery Method Room Air Room Air Room Air 02/28/23 11:36 02/28/23 12:05 02/28/23 12:30 Temperature 96.1 F L Temperature Source Temporal Pulse Rate 82 75 72 Respiratory Rate 20 H 16 14 Blood Pressure 115/79 106/84 H 111/91 H Blood Pressure Mean 91 91 97 Pulse Ox 100 95 99 Oxygen Delivery Method Room Air Room Air Room Air 02/28/23 13:00 Temperature Temperature Source Pulse Rate 73 Respiratory Rate 18 Blood Pressure 101/88 H Blood Pressure Mean 92 Pulse Ox 100 Oxygen Delivery Method Room Air Weight Weight: 120 lb 13.013 oz Body Mass Index (BMI) 23.6 Physical Exam Narrative General: Awake, on baseline. Simple communication and answers questions. It seems patient oriented x3. HEENT: Atraumatic, PERRLA, EOMI, Normocephalic Oral: Oral mucosa dry. No Gingival or Mucosal Lesions/ Ulcerations Neck: Supple, No JVD, Negative Carotid Bruits Lungs: Air entry diminished in bilateral lung bases. No crepitation/rhonchi Cardiovascular: Open heart surgery status post VSD repair. Regular rate, Regular Rhythm, Normal S1, Normal S2, No murmurs. Left subclavicular pacemaker Abdomen: Bowel Sounds Present, Soft, Non Tender, Non-Distended : No renal angle tenderness. No suprapubic tenderness. Extremities: No edema, Capillary Refill Less than 3 Seconds Skin: Mild abrasion over radial side of distal left forearm. No open ulcer. ROM intact. Musculoskeletal: Mild tenderness over squeezing of distal left forearm. No Tenderness to Palpation of Joints or Extremities Neurological: Cranial nerves II-XII grossly intact, DTR 2+/4, muscle strength 5/5 at major joints of extremities Psych/Mental Status: Flat affect, mild cognitive deficit, Down syndrome. Results Lab / Micro Data Result Diagrams: 02/28/23 11:06 02/28/23 11:06 Labs: Laboratory Results - last 24 hr 02/28/23 11:06: WBC 5.8, RBC 5.01, Hgb 16.8 H, Hct 49.9, MCV 99.6 H, MCH 33.5 H, MCHC 33.7, RDW Std Deviation 51.8 H, RDW Coeff of Annelise 14.2, Plt Count 191, MPV 9.0, Immature Gran % (Auto) 0.300, Neut % (Auto) 65.2, Lymph % (Auto) 20.7, Richardson % (Auto) 8.6, Eos % (Auto) 3.5, Baso % (Auto) 1.7 H, Absolute Neuts (auto) 3.8, Absolute Lymphs (auto) 1.20, Nucleated RBC % 0 02/28/23 11:06: PT 13.6, INR 1.0, APTT 30.2 02/28/23 11:06: Sodium 138, Potassium 4.2, Chloride 106, Carbon Dioxide 28.0, Anion Gap 4 L, BUN 21 H, Creatinine 1.20, Estim Creat Clear Calc 52.08, Est GFR (MDRD) Af Amer 82, Est GFR (MDRD) Non-Af 68, BUN/Creatinine Ratio 17.5, Glucose 100, Calcium 9.3, Troponin I High Sens 10 02/28/23 11:16: POC Glucose 125 H Radiology Impression Brain CT 02/28/23 11:05 IMPRESSION: Chronic involutional changes of the brain. N.B. : The above Results were Read Back by Alex Atkinson MD to Dr Suzanna DO, and understanding confirmed on 02/28/2023 11:24:52 (ET). Electronically Signed: Alex Atkinson MD at 11:26 EDT , Head/Neck CTA 02/28/23 11:41 IMPRESSION: Normal CTA Head and neck with contrast. N.B. : The above Results were Read Back by Alex Atkinson MD to Dr Suzanna DO, and understanding confirmed on 02/28/2023 12:06:56 (ET). Electronically Signed: Alex Atkinson MD at 12:08 EDT , Chest X-Ray 02/28/23 11:42 IMPRESSION: No acute abnormality is seen. Electronically Signed: Alex Atkinson MD at 12:19 EDT , Assessment & Plan Assessment/Plan (1) Altered mental status: PLAN: Plan This is a 52-year-old gentleman was brought to ED for evaluation of sudden loss of consciousness/syncope//altered mental status. 1. Unwitnessed LOC/syncope, exact etiology unclear suspected complex partial seizure: Patient has history of partial seizure first observed in October 2022 at [facility]. He was admitted in [facility] in December 2022 where he had a continuous EEG monitoring but no events were captured. He was diagnosed with focal epilepsy/simple partial seizure. He follows Dr. Serrano on March 31, 2023. Patient is on Keppra 750 mg twice daily. Loading dose 1500 mg started. Electrolytes magnesium and phosphorus ordered. Serum sodium and potassium normal. EEG ordered. Patient was last admitted in November 2021 for syncope and at that time he was bradycardic and hypotensive. He underwent pacemaker placement. Pacemaker interrogation 2. Possible stroke although seems less likely: Patient was evaluated by [facility] after stroke alert. MRI brain without contrast ordered. 2D echo ordered. PT, OT, speech therapy/swallow evaluation and management, nursing NIH stroke scale, BP and glucose monitoring and control as per stroke protocol. TSH, A1c, UA fasting lipid profile tomorrow AM. MRI brain and 2D echo with bubble contrast study ordered 3. Down syndrome, history of VSD repair, pacemaker for bradycardia: Patient follows Dr. Iyer last clinic visit 03/14. Living will/advanced directive/end of life care: Patient does not have living will or advanced directive. His mother and father near the bedside. After discussion of benefits/risks procedures involved with full code, DNR CC arrest and DNR CC, the opted for full code. The patient's parent do want artificial life support including intubation, tube feed, ventilator and/chest compression, central venous catheter, vasopressor and DC shock if needed Total time spent in [id number] encounter in discussion of advanced directive 17 minutes. Laboratory Results 02/28/23 11:06: WBC 5.8, RBC 5.01, Hgb 16.8 H, Hct 49.9, MCV 99.6 H, MCH 33.5 H, MCHC 33.7, RDW Std Deviation 51.8 H, RDW Coeff of Annelise 14.2, Plt Count 191, MPV 9.0, Immature Gran % (Auto) 0.300, Neut % (Auto) 65.2, Lymph % (Auto) 20.7, Richardson % (Auto) 8.6, Eos % (Auto) 3.5, Baso % (Auto) 1.7 H, Absolute Neuts (auto) 3.8, Absolute Lymphs (auto) 1.20, Nucleated RBC % 0 02/28/23 11:06: PT 13.6, INR 1.0, APTT 30.2 02/28/23 11:06: Sodium 138, Potassium 4.2, Chloride 106, Carbon Dioxide 28.0, Anion Gap 4 L, BUN 21 H, Creatinine 1.20, Estim Creat Clear Calc 52.08, Est GFR (MDRD) Af Amer 82, Est GFR (MDRD) Non-Af 68, BUN/Creatinine Ratio 17.5, Glucose 100, Calcium 9.3, Troponin I High Sens 10 02/28/23 11:16: POC Glucose 125 H Clinical Impression(s) from Imaging Studies Brain CT 02/28/23 11:05 IMPRESSION: Chronic involutional changes of the brain. N.B. : The above Results were Read Back by Alex Atkinson MD to Dr Suzanna DO, and understanding confirmed on 02/28/2023 11:24:52 (ET). Electronically Signed: Alex Atkinson MD at 11:26 EDT , Head/Neck CTA 02/28/23 11:41 IMPRESSION: Normal CTA Head and neck with contrast. Chest X-Ray 02/28/23 11:42 IMPRESSION: No acute abnormality is seen. Electronically Signed: Alex Atkinson MD at 12:19 EDT , Charges/Coding Visit Charges Inpatient E&M: 16023 Init Hosp L3 Procedures Hospitalists Procedures: 09667 Advncd Care Plan 30 Min
--- NOTE | 2023-02-28 14:03 | RAD_ITS ---
STUDY: X-RAY - LEFT RADIUS AND ULNA REASON FOR EXAM: Male, 52 years old. Left forearm pain TECHNIQUE: 2 view(s) of the forearm. COMPARISON: None. FINDINGS: There is no demonstrated soft tissue swelling. Deformity of the distal aspect of the radius with a healed fracture. Old avulsion fracture of the ulna. RAD/Forearm 2 Views IMPRESSION: Deformity of the distal aspect of the radius secondary to a healed distal radial fracture. Old avulsion fracture of the ulnar styloid. Electronically Signed: Alex Atkinson MD at 14:43 EDT ,
--- NOTE | 2023-02-28 14:03 | RAD_ITS ---
STUDY: X-RAY - LEFT WRIST REASON FOR EXAM: Male, 52 years old. Fall/pain TECHNIQUE: 3 view(s) of the wrist were obtained. COMPARISON: None. FINDINGS: Old healed fracture of the distal radius. Old avulsion fracture of the ulnar styloid. Normal radiocarpal articulation. Normal distal radioulnar articulation. Normal carpal bones. Normal carpal articulations. Normal carpometacarpal articulation of the thumb. Normal second through fifth carpometacarpal articulations. Normal visualized metacarpal bones. The soft tissue structures are unremarkable. RAD/Wrist min 3 Views IMPRESSION: Old avulsion fracture of the ulnar styloid and healed fracture of the distal radial metaphysis. Electronically Signed: Alex Atkinson MD at 14:45 EDT ,
--- NOTE | 2023-02-28 14:03 | RAD_ITS ---
STUDY: X-RAY - LEFT HAND REASON FOR EXAM: Male, 52 years old. Fall TECHNIQUE: 3 view(s) of the hand. COMPARISON: None. FINDINGS: Normal radiocarpal articulation. Normal distal radioulnar joint. Normal visualized carpal bones. Normal carpal articulations Normal carpometacarpal articulation of the thumb. Normal second through fifth carpometacarpal joints. Normal metacarpi. Normal metacarpophalangeal joint of the thumb. Normal interphalangeal joint of the thumb. Normal proximal and distal phalanges of the thumb. Normal metacarpophalangeal joints of the second through fifth fingers. There is diffuse articular joint space narrowing of the proximal and distal interphalangeal joints of the second through fifth fingers, but without erosive changes or periarticular soft tissue swelling. Normal phalanges of the second through fifth fingers. Soft tissue swelling. RAD/Hand Min 3 Views IMPRESSION: Degenerative joint disease of the hand, as described above. Electronically Signed: Alex Atkinson MD at 14:44 EDT ,
--- NOTE | 2023-02-28 15:06 | ECHOD_ITS ---
Reason For Study: CVA Procedure This was a 2D Doppler, Color Flow transthoracic echocardiogram. Exam performed portable in patient room. Left Ventricle Normal LV size. Left ventricular systolic function is normal. The estimated ejection fraction is 60 %. No regional wall motion abnormalities noted. Right Ventricle Normal RV size. ICD or pacer leads identified within the right ventricle. Normal systolic function. Atria Normal left atrium. Normal right atrium. Patent foramen ovale. Mitral Valve Normal mitral valve. Tricuspid Valve Normal tricuspid valve. Mild tricuspid valve insufficiency. Pulmonary artery systolic pressure is 26 mmHg. Aortic Valve Normal aortic valve. Trisinus/trileaflet aortic valve. Pulmonic Valve Normal pulmonic valve. Great Vessels Normal aortic root. The pulmonary artery is normal size. Normal inferior vena cava. Pericardium/Pleural No pericardial effusion. Medication Performed a rapid injection of agitated mix of 9 cc saline and 1cc air to assess for atrial septal defect. MMode/2D Measurements & Calculations LVIDd: 3.4 cm IVSd: 0.86 cm Ao root diam: 2.8 cm LVIDs: 2.1 cm LVPWd: 0.77 cm RVDd: 2.9 cm FS: 39.1 % LAV(MOD-bp): 12.7 ml LVAd ap4: 18.9 cm2 SV(MOD-sp4): 24.3 ml LAV(MOD-bp) Indexed: 8.4 ml/m2 LVLd ap4: 6.8 cm LAV(MOD-sp2): 13.4 ml EDV(MOD-sp4): 42.2 ml LAV(MOD-sp4): 10.6 ml EDV(sp4-el): 44.6 ml LVAs ap4: 11.0 cm2 LVLs ap4: 5.7 cm ESV(MOD-sp4): 17.9 ml ESV(sp4-el): 18.1 ml EF(MOD-sp4): 57.5 % EF(sp4-el): 59.3 % SV(sp4-el): 26.5 ml LA A4 area: 6.3 cm2 LA dimension(2D): 2.4 cm RA A4 area: 7.5 cm2 Time Measurements MV dec time: 0.22 sec Doppler Measurements & Calculations MV E max ronnie: 59.7 cm/sec Lat Peak E' Ronnie: 11.1 cm/sec Med Peak E' Ronnie: 6.7 cm/sec MV A max ronnie: 38.2 cm/sec E/E' lat: 5.4 E/E' med: 8.9 MV E/A: 1.6 MV dec slope: 268.5 cm/sec2 Ao V2 max: 71.7 cm/sec LV V1 max: 62.5 cm/sec Ao max P.1 mmHg LV V1 max P.6 mmHg Ao V2 mean: 52.6 cm/sec Ao mean P.2 mmHg Ao V2 VTI: 14.0 cm PA V2 max: 88.9 cm/sec TR max ronnie: 234.5 cm/sec TR max P.0 mmHg ECHO/Echo Complete Interpretation Summary Normal LV size. Left ventricular systolic function is normal. The estimated ejection fraction is 60 %. Patent foramen ovale. ICD or pacer leads identified within the right ventricle. Mild tricuspid valve insufficiency. Ordering Physician: Doug Sims Referring Physician: Sunday Mcclelland Performed By: Gisela Chino, JORGE, RVT
[2023-02-28] MEDS: Aspirin 81 MG TAB.CHEW PO (17:42)
[2023-02-28] MEDS: KCL 20MEQ in 0.9% NS 20 MEQ/1,000 ML IV.SOLN. 100 MEQ IV (18:19)
[2023-02-28] MEDS: MELATONIN 10 MG TABLET 5 MG PO (22:08)
[2023-02-28] MEDS: Atorvastatin Calcium 80 MG Tablet 40 MG PO (22:08)
[2023-03-01] VITALS (7 sets, daily range): BP systolic 91–119; BP diastolic 63–83; PULSE 60–81; RESP 14–18; TEMP 36.4–36.7; O2SAT 96–100; BMI 23.2
--- NOTE | 2023-03-01 03:42 | NURSING ---
Patient NIH completed late due to this nurse attending a code on another unit
[2023-03-01] MEDS: KCL 20MEQ in 0.9% NS 20 MEQ/1,000 ML IV.SOLN. 100 MEQ IV ×3 (03:48→23:02)
[2023-03-01] MEDS: Levothyroxine 100 MCG Tablet PO (06:09)
[2023-03-01 06:33] LABS: Bedside Glucose 142 mg/dL (74-106)
[2023-03-01 07:53] LABS: Cholesterol 206 mg/dL (200); High Density Lipoprotein 51 mg/dL; Triglycerides 82 mg/dL; Very Low Density Lipoprotein 16 mg/dL (5-40)
--- NOTE | 2023-03-01 07:55 | PCM.PN.HOSP ---
Reason for Visit Reason for Visit: Diagnoses Altered mental status, unspecified (02/28/23) Subjective Subjective Patient evaluated with family members at bedside, family reported that he has had problems with seizures since 2020 and is struggled with partial seizures since then. Most recent seizure was in December and he has been having medication adjustments with his neurologist. Due to the Wellbutrin lowering the seizure threshold he is currently being tapered off of it and is down to 150 mg of bupropion every other day and will have that through this week and then will be discontinued. Also has been on a Lamictal titration and is presently on Lamictal 100 daily in addition to his Keppra. Family endorses that he was sitting outside waiting for the van like he usually does around 1 one of the daughters walked outside she saw him 15 feet from where he should have been sitting on the porch and when his mother turned him over he seemed very dazed and out of it and did note that he had fallen on his left arm but when they got him up his left arm was entirely hanging. Left arm has significantly improved and mental status returned to baseline, his left hand still is weaker than his right but reportedly this is chronic and that seems to be back to baseline. Objective Data Objective Data Vital Signs: Vital Signs Temp Pulse Resp BP Pulse Ox O2 Del Method 98.1 F 60 14 107/67 96 Room Air 03/01/23 06:13 03/01/23 06:13 03/01/23 06:13 03/01/23 06:13 03/01/23 06:13 03/01/23 06:13 Oxygen Delivery Method Room Air Weight: 54 kg Body Mass Index (BMI) 23.2 Intake & Output: Intake and Output for Last 24 Hours 02/27/23 02/28/23 03/01/23 23:59 23:59 23:59 Intake Total 665 / 665 948.33 / 948.33 Balance 665 / 665 948.33 / 948.33 Lab / Micro Data Result Diagrams: 02/28/23 11:06 02/28/23 11:06 Labs: Laboratory Results - last 24 hr 02/28/23 11:06: WBC 5.8, RBC 5.01, Hgb 16.8 H, Hct 49.9, MCV 99.6 H, MCH 33.5 H, MCHC 33.7, RDW Std Deviation 51.8 H, RDW Coeff of Annelise 14.2, Plt Count 191, MPV 9.0, Immature Gran % (Auto) 0.300, Neut % (Auto) 65.2, Lymph % (Auto) 20.7, [place] % (Auto) 8.6, Eos % (Auto) 3.5, Baso % (Auto) 1.7 H, Absolute Neuts (auto) 3.8, Absolute Lymphs (auto) 1.20, Nucleated RBC % 0 02/28/23 11:06: PT 13.6, INR 1.0, APTT 30.2 02/28/23 11:06: Sodium 138, Potassium 4.2, Chloride 106, Carbon Dioxide 28.0, Anion Gap 4 L, BUN 21 H, Creatinine 1.20, Estim Creat Clear Calc 52.08, Est GFR (MDRD) Af Amer 82, Est GFR (MDRD) Non-Af 68, BUN/Creatinine Ratio 17.5, Glucose 100, Calcium 9.3, Troponin I High Sens 10 02/28/23 11:16: POC Glucose 125 H 03/01/23 05:24: Triglycerides 82, Cholesterol 206 H, LDL Cholesterol 139 H, VLDL Cholesterol 16, HDL Cholesterol 51, TSH 5.30 H 03/01/23 06:12: POC Glucose 142 H Radiography Diagnostic Testing: Radiology Impression Brain CT 02/28/23 11:05 IMPRESSION: Chronic involutional changes of the brain. N.B. : The above Results were Read Back by Alex Atkinson MD to Dr Suzanna DO, and understanding confirmed on 02/28/2023 11:24:52 (ET). Electronically Signed: Alex Atkinson MD at 11:26 EDT , Head/Neck CTA 02/28/23 11:41 IMPRESSION: Normal CTA Head and neck with contrast. N.B. : The above Results were Read Back by Alex Atkinson MD to Dr Suzanna DO, and understanding confirmed on 02/28/2023 12:06:56 (ET). Electronically Signed: Alex Atkinson MD at 12:08 EDT , Chest X-Ray 02/28/23 11:42 IMPRESSION: No acute abnormality is seen. Electronically Signed: Alex Atkinson MD at 12:19 EDT , Forearm X-Ray 02/28/23 14:03 IMPRESSION: Deformity of the distal aspect of the radius secondary to a healed distal radial fracture. Old avulsion fracture of the ulnar styloid. Electronically Signed: Alex Atkinson MD at 14:43 EDT , Hand X-Ray 02/28/23 14:03 IMPRESSION: Degenerative joint disease of the hand, as described above. Electronically Signed: Alex Atkinson MD at 14:44 EDT , Wrist X-Ray 02/28/23 14:03 IMPRESSION: Old avulsion fracture of the ulnar styloid and healed fracture of the distal radial metaphysis. Electronically Signed: Alex Atkinson MD at 14:45 EDT , Echocardiogram 02/28/23 15:06 Interpretation Summary Normal LV size. Left ventricular systolic function is normal. The estimated ejection fraction is 60 %. Patent foramen ovale. ICD or pacer leads identified within the right ventricle. Mild tricuspid valve insufficiency. Ordering Physician: Doug Sims Referring Physician: Sunday Mcclelland Performed By: Gisela Chino, JORGE, RVT Physical Exam Narrative General: Alert, oriented, no apparent distress HEENT: Atraumatic, normocephalic Eyes: Anicteric, normal conjunctiva, extraocular movements grossly intact Neck: Supple Respiratory: Clear to auscultation bilaterally, normal respiratory effort Cardiovascular: Regular rate and rhythm GI: Soft, nontender, nondistended Extremities: No edema Musculoskeletal: Moving all extremities, is squeezing ball with left hand to try to improve strength Neuro: No other overt focal neurological deficits Skin: No rashes appreciated Psych: Cooperative Assessment & Plan Assessment/Plan (1) Loss of consciousness: (2) Presence of permanent cardiac pacemaker: (3) S/P VSD repair: (4) History of partial seizures: (5) Thyroid disease: (6) Down's syndrome: PLAN: Plan #Loss of consciousness -Patient has history of partial seizures with most recent being 2 months ago -Episode on day of presentation was unwitnessed and he was confused shortly after and dazed and was not moving his left arm but unclear if this could have been a stroke versus seizure with something like Bo's paralysis -CT/CTA unremarkable, EEG abnormal but no seizure activity noted. Family reports that he has abnormal EEG at baseline and they have been told this in the past but unable to specify further -MRI ordered however cannot be done till Friday due to pacemaker and needing this coordinated with MRI as well as cardiology -Discussed risks and benefits at length with family regarding discharge home versus staying, given unclear if this was a breakthrough seizure despite recent adjustment of seizure medication versus stroke risks of going home seem to outweigh the benefits and family was in agreement at this time -MRI on Friday, would plan for neurology to evaluate post MRI especially if MRI negative so that further seizure medication adjustments can be advised -Continue Keppra 750 twice daily, home Lamictal 100 mg reordered, did not miss more than 2 doses so do not need to restart titration -We will continue Wellbutrin taper, order entered for 150 mg every other day for 3 more doses as they report that is the final week of his taper and that is presently what he is on -Continue aspirin and statin -Did have LDL of 139 and total cholesterol of 206, A1c 5.4 -Continue to monitor on telemetry -Echocardiogram with EF of 60% as well as patent foramen ovale noted #History of partial seizures -Continue Keppra, Lamictal, Wellbutrin taper #History of VSD repair/sick sinus syndrome/permanent cardiac pacemaker 12/10/2021 -Supportive management and #Down syndrome -Supportive care #Hypothyroidism -TSH 5.30, will check free T4 with next labs -Continue Synthroid #DVT ppx: Kofi score is only 1 and typically VTE prophylaxis not necessary however given acute stroke being ruled out will place on Lovenox subcu at this time though if stroke is ruled out we will discontinue this this patient is low risk Doreen Wells MD Time spent in the patient's overall evaluation,decision-making process, review of diagnostic data, adjustment of management, discussion with other providers, nursing nursing and ancillary staff involved in patient's care documentation, 45 Minutes Charges/Coding Visit Charges Inpatient E&M: 32554 Subs Hosp L3
[2023-03-01] MEDS: levETIRAcetam 500 MG Tablet 750 MG PO ×2 (09:54→22:13)
[2023-03-01] MEDS: buPROPion (XL) 300 MG TABLET.XL PO (09:54)
[2023-03-01] MEDS: Aspirin 81 MG TAB.CHEW PO (09:54)
[2023-03-01] MEDS: Cholecalciferol (VIT D3) 25 MCG TABLET (1,000 UNITS) 50 MCG PO (09:55)
[2023-03-01] MEDS: 0.9% Saline Lock 10 ML Syringe IV (09:56)
[2023-03-01 10:06] LABS: Hemoglobin A1c 5.4 % (3.8-5.6)
--- NOTE | 2023-03-01 10:10 | CASEMGMT ---
RN CM Face to Face with patient for initial transition planning/care coordination assessment. RN CM introduced self and role at [facility]. Patient sitting in chair, alert and oriented, parents at bedside. Parents willing to participate in assessment as patient has down syndrome. Care providers, pharmacy, and demographics verified. Parents wish for patient to discharge home, with possible outpatient therapy for OT. Parents state theu have no further needs or concerns at this time. CM to follow for discharge planning needs that may arise. PCP: Krystin Specialists: Zach neurologist [facility]; ROSANNAG, cardiology Preferred Pharmacy: [facility] Insurance: [employer] [facility] Prescription Benefit: yes Living Will/HPOA: yes, parents LNOK: parents Living Arrangements: Patient lives with parents in a 2 story home. Patient is independent and able to ambulate stairs. Transportation: parents DME/HHC: No DME in the home. No previous HHC or SNF. Disposition Plan: Patient to discharge home with family support and follow-up plans in place. Will monitor outpatient OT at discharge. Alie ALVES, RN, CM
[2023-03-01 17:16] LABS: Bacteria 0 SEEN /hpf (None Seen); Mucous, Urine 0 SEEN /hpf (<or=2+); Red Blood Cells-Urine 0 SEEN /hpf (0-5); Squamous Epithelial Cells - UA 0 SEEN /hpf (0-5); White Blood Cells 0 SEEN /hpf (0-5)
[2023-03-01 17:24] LABS: Color, Urine Yellow (Yellow); Glucose, Dipstick Normal (Normal); Ketone-Dipstick Negative (Negative); Leukocyte Esterase-Dipstick Negative /ul (Negative); Nitrite-Dipstick Negative (Negative); Occult Blood-Urine Negative /ul (Negative); Protein-Dipstick Negative (Negative); Urine Bilirubin Dipstick Negative (Negative); Urine Clarity Clear (Clear); Urine Urobilinogen Normal (Normal); Urine pH 6.5 (5.0 - 8.0)
[2023-03-01] MEDS: MELATONIN 10 MG TABLET 5 MG PO (22:14)
[2023-03-01] MEDS: Atorvastatin Calcium 80 MG Tablet 40 MG PO (22:14)
[2023-03-02 02:01] VITALS: BP 104/76; PULSE 71; RESP 18; TEMP 36.6; O2SAT 97
[2023-03-02 02:13] VITALS: BMI 23.2
[2023-03-02 06:00] VITALS: BP 108/74; PULSE 64; RESP 18; TEMP 36.7; O2SAT 100
[2023-03-02 06:01] LABS: Absolute Lymphocyte Count 1.93 X10^3/uL (0.83-4.51); Absolute Neutrophil Count 4.3 X10^3/uL (2.0-7.7); Basophil# 0.11 X10^3/uL; Basophil% 1.5 % (0-1); Eosinophil# 0.29 X10^3/uL; Hematocrit 46.3 % (40-54); Hemoglobin 15.6 g/dL (13.0-16.5); Lymphocyte # 1.93 X10^3/ul (0.83-4.51); Lymphocyte % 26.7 % (19-41); Mean Corp Hgb Conc 33.7 g/dL (32-36); Mean Corpuscular Hgb 33.7 pg (27.0-32.0); Mean Platelet Vol. 9.2 fl (6.2-12.0); Monocyte# 0.62 X10^3/uL; Monocyte% 8.6 % (0-10); NRBC Flagged by Analyzer 0 % (0-5); Neutrophil # 4.26 X10^3/uL (2.7-7.7); Neutrophil % 58.9 % (47-70); Platelet Count 196 K/mm3 (150-450); RBC Distribution Width CV 14.1 % (11.6-14.6); RBC Distribution Width SD 52.7 fl (35.1-43.9); Red Blood Count 4.63 M/mm3 (4.6-6.2); White Blood Count 7.2 K/mm3 (4.4-11.0)
[2023-03-02 06:30] LABS: ALB/GLOB Ratio 1.1 RATIO (0.9-2.4); AST(SGOT) 31 U/L (15-37); Alanine Aminotransfer ALT/SGPT 54 U/L (16-61); Albumin, Serum 3.6 g/dL (3.2-5.0); Alkaline Phosphatase 100 U/L (45-117); Anion Gap 3 (5-15); BUN 17 mg/dL (7-18); BUN/Creat Ratio 14.9 RATIO (10-20); Chloride 112 mmol/L (98-107); Creatinine, Serum 1.14 mg/dL (0.70-1.30); EST Glomerular Filtration Rate 72 mL/min (>60); Est Glom Filt Rate - Afr Amer 87 mL/min (>60); Estimated Creatinine Clearance 54.82 ml/min; Globulin 3.4 g/dL (2.2-4.2); Glucose 94 mg/dL (74-106); Potassium 4.4 mmol/L (3.5-5.1); Sodium Level 141 mmol/L (136-145); T4 Free Direct 0.89 ng/dL (0.76-1.46)
--- NOTE | 2023-03-02 08:34 | PN.HOSP_ITS ---
Reason for Visit Reason for Visit: Diagnoses Disorder of thyroid, unspecified (02/28/23) Down syndrome, unspecified (02/28/23) Unspecified coma (02/28/23) Altered mental status, unspecified (02/28/23) Personal history of other diseases of the nervous system and sense organs (02/28/23) Personal history of (corrected) congenital malformations of heart and circulatory system (02/28/23) Presence of cardiac pacemaker (02/28/23) Subjective Subjective Sitting up in bed, pleasant, doing well Objective Data Objective Data Vital Signs: Vital Signs Temp Pulse Resp BP Pulse Ox O2 Del Method 98.1 F 64 18 108/74 100 Room Air 03/02/23 06:00 03/02/23 06:00 03/02/23 06:00 03/02/23 06:00 03/02/23 06:00 03/02/23 08:23 Oxygen Delivery Method Room Air Weight: 54 kg Body Mass Index (BMI) 23.2 Intake & Output: Intake and Output for Last 24 Hours 02/28/23 03/01/23 03/02/23 23:59 23:59 23:59 Intake Total 665 / 665 3591.66 / 3591.66 Balance 665 / 665 3591.66 / 3591.66 Lab / Micro Data Result Diagrams: 03/02/23 05:39 03/02/23 05:39 Labs: Laboratory Results - last 24 hr 02/28/23 17:00: Urine Color Yellow, Urine Clarity Clear, Urine pH 6.5, Ur Specif ic [place] 1.010, Urine Protein Negative, Urine Glucose (UA) Normal, Urine Ketones Negative, Urine Occult Blood Negative, Urine Nitrite Negative, Urine Bilirubin Negative, Urine Urobilinogen Normal, Ur Leukocyte Esterase Negative, Urine RBC 0 SEEN, Urine WBC 0 SEEN, Ur Squamous Epith Cells 0 SEEN, Urine Bacteria 0 SEEN, Urine Mucus 0 SEEN 03/01/23 05:24: Hemoglobin A1c 5.4 03/02/23 05:39: WBC 7.2, RBC 4.63, Hgb 15.6, Hct 46.3, MCV 100.0 H, MCH 33.7 H, MCHC 33.7, RDW Std Deviation 52.7 H, RDW Coeff of Annelise 14.1, Plt Count 196, MPV 9.2, Immature Gran % (Auto) 0.300, Neut % (Auto) 58.9, Lymph % (Auto) 26.7, [place] % (Auto) 8.6, Eos % (Auto) 4.0, Baso % (Auto) 1.5 H, Absolute Neuts (auto) 4.3, Absolute Lymphs (auto) 1.93, Nucleated RBC % 0 03/02/23 05:39: Sodium 141, Potassium 4.4, Chloride 112 H, Carbon Dioxide 26.0, Anion Gap 3 L, BUN 17, Creatinine 1.14, Estim Creat Clear Calc 54.82, Est GFR (MDRD) Af Amer 87, Est GFR (MDRD) Non-Af 72, BUN/Creatinine Ratio 14.9, Glucose 94, Calcium 9.0, Total Bilirubin 0.30, AST 31, ALT 54, Alkaline Phosphatase 100, Total Protein 7.0, Albumin 3.6, Globulin 3.4, Albumin/Globulin Ratio 1.1, Free T4 0.89 Physical Exam Narrative General: Alert, oriented, no apparent distress HEENT: Atraumatic, normocephalic Eyes: Anicteric, normal conjunctiva, extraocular movements grossly intact Neck: Supple Respiratory: Clear to auscultation bilaterally, normal respiratory effort Cardiovascular: Regular rate and rhythm GI: Soft, nontender, nondistended Extremities: No edema Musculoskeletal: Moving all extremities, again demonstrated slight decrease in movement of the left hand compared to right but family reported this specifically was chronic but his initial entire left arm deficit was not Neuro: No other overt focal neurological deficits Skin: No rashes appreciated Psych: Cooperative Assessment & Plan Assessment/Plan (1) Loss of consciousness: (2) Presence of permanent cardiac pacemaker: (3) S/P VSD repair: (4) History of partial seizures: (5) Thyroid disease: (6) Down's syndrome: PLAN: Plan #Loss of consciousness -Patient has history of partial seizures with most recent being 2 months ago -Episode on day of presentation was unwitnessed and he was confused shortly after and dazed and was not moving his left arm but unclear if this could have been a stroke versus seizure with something like Bo's paralysis -CT/CTA unremarkable, EEG abnormal but no seizure activity noted. Family reports that he has abnormal EEG at baseline and they have been told this in the past but unable to specify further -MRI ordered however cannot be done till Friday due to pacemaker and needing this coordinated with MRI as well as cardiology -Discussed risks and benefits at length with family regarding discharge home versus staying, given unclear if this was a breakthrough seizure despite recent adjustment of seizure medication versus stroke risks of going home seem to o utweigh the benefits and family was in agreement at this time -MRI on Friday, would plan for neurology to evaluate post MRI especially if MRI negative so that further seizure medication adjustments can be advised -Continue Keppra 750 twice daily, home Lamictal 100 mg reordered, did not miss more than 2 doses so do not need to restart titration -We will continue Wellbutrin taper, order entered for 150 mg every other day for 3 more doses as they report that is the final week of his taper and that is presently what he is on -Continue aspirin and statin -Did have LDL of 139 and total cholesterol of 206, A1c 5.4 -Continue to monitor on telemetry -Echocardiogram with EF of 60% as well as patent foramen ovale noted -03/02: MRI should be 03/03 due to coordination for his pacemaker. After that we will need neurology evaluation, patient does have PFO, depending if this was stroke or seizure will depend on urgency/timing of PFO evaluation #History of partial seizures -Continue Keppra, Lamictal, Wellbutrin taper #History of VSD repair/sick sinus syndrome/permanent cardiac pacemaker 12/10/2021 -Supportive management #Down syndrome -Supportive care #Hypothyroidism -TSH 5.30, will check free T4 with next labs -Continue Synthroid #DVT ppx: Kofi score is only 1 and typically VTE prophylaxis not necessary however given acute stroke being ruled out will place on Lovenox subcu at this time though if stroke is ruled out we will discontinue this this patient is low risk Doreen Wells MD Time spent in the patient's overall evaluation,decision-making process, review of diagnostic data, adjustment of management, discussion with other providers, nursing nursing and ancillary staff involved in patient's care documentation, 37 Minutes Charges/Coding Visit Charges Inpatient E&M: 70025 Subs Hosp L3
[2023-03-02] MEDS: KCL 20MEQ in 0.9% NS 20 MEQ/1,000 ML IV.SOLN. 100 MEQ IV ×2 (08:57→19:07)
[2023-03-02] MEDS: Aspirin 81 MG TAB.CHEW PO (09:00)
[2023-03-02] MEDS: Cholecalciferol (VIT D3) 25 MCG TABLET (1,000 UNITS) 50 MCG PO (09:00)
[2023-03-02] MEDS: levETIRAcetam 500 MG Tablet 750 MG PO ×2 (09:00→21:39)
[2023-03-02] MEDS: lamoTRIgine 100 MG Tablet PO (09:00)
[2023-03-02] MEDS: Enoxaparin 40 MG/0.4 ML Syringe SC (09:01)
[2023-03-02 09:06] VITALS: BMI 23.2
[2023-03-02 10:00] VITALS: BP 108/82; PULSE 72; RESP 18; TEMP 36.3; O2SAT 100
[2023-03-02 13:57] VITALS: BMI 23.2
[2023-03-02 14:00] VITALS: BP 112/81; PULSE 69; RESP 18; TEMP 36.6; O2SAT 98
[2023-03-02 18:00] VITALS: BP 117/73; PULSE 75; RESP 16; TEMP 36.8; O2SAT 99
[2023-03-02 21:27] VITALS: BP 113/73; PULSE 76; RESP 18; TEMP 36.7; O2SAT 98
[2023-03-02] MEDS: Atorvastatin Calcium 80 MG Tablet 40 MG PO (21:38)
[2023-03-02] MEDS: MELATONIN 10 MG TABLET 5 MG PO (21:38)
--- NOTE | 2023-03-02 23:14 | NURSING ---
This RN placed pt on bipap, but pt immediately pulled it off and started to get more irritable. pt switched back on 4L w/ saturation in 93-95%. pt's daughter in room, no further concerns at this time.
[2023-03-03] VITALS (9 sets, daily range): BP systolic 104–117; BP diastolic 56–79; PULSE 64–81; RESP 16–18; TEMP 36.5–36.8; O2SAT 95–100; BMI 23.2
[2023-03-03] MEDS: KCL 20MEQ in 0.9% NS 20 MEQ/1,000 ML IV.SOLN. 100 MEQ IV (05:15)
[2023-03-03] MEDS: Levothyroxine 100 MCG Tablet PO (05:15)
[2023-03-03 05:58] LABS: Absolute Lymphocyte Count 1.67 X10^3/uL (0.83-4.51); Absolute Neutrophil Count 5.6 X10^3/uL (2.0-7.7); Basophil% 1.2 % (0-1); Eosinophil# 0.28 X10^3/uL; Eosinophils% 3.3 % (0-5); Hemoglobin 15.6 g/dL (13.0-16.5); Lymphocyte # 1.67 X10^3/ul (0.83-4.51); Lymphocyte % 19.8 % (19-41); Mean Corp Hgb Conc 33.9 g/dL (32-36); Mean Corpuscular Hgb 33.8 pg (27.0-32.0); Mean Corpuscular Volume 99.8 fL (80-94); Mean Platelet Vol. 9.2 fl (6.2-12.0); Monocyte# 0.73 X10^3/uL; Monocyte% 8.6 % (0-10); NRBC Flagged by Analyzer 0 % (0-5); Neutrophil # 5.62 X10^3/uL (2.7-7.7); Neutrophil % 66.6 % (47-70); Platelet Count 200 K/mm3 (150-450); RBC Distribution Width CV 14.1 % (11.6-14.6); Red Blood Count 4.61 M/mm3 (4.6-6.2); White Blood Count 8.4 K/mm3 (4.4-11.0)
[2023-03-03 06:34] LABS: AST(SGOT) 36 U/L (15-37); Alanine Aminotransfer ALT/SGPT 75 U/L (16-61); Albumin, Serum 3.4 g/dL (3.2-5.0); Alkaline Phosphatase 96 U/L (45-117); Anion Gap 4 (5-15); BUN 16 mg/dL (7-18); BUN/Creat Ratio 14.4 RATIO (10-20); Calcium,Total 8.7 mg/dL (8.5-10.1); Chloride 112 mmol/L (98-107); Creatinine, Serum 1.11 mg/dL (0.70-1.30); EST Glomerular Filtration Rate 74 mL/min (>60); Est Glom Filt Rate - Afr Amer 90 mL/min (>60); Estimated Creatinine Clearance 56.31 ml/min; Globulin 3.3 g/dL (2.2-4.2); Glucose 104 mg/dL (74-106); Potassium 4.8 mmol/L (3.5-5.1); Protein, Total 6.7 g/dL (6.4-8.2); Sodium Level 141 mmol/L (136-145)
[2023-03-03] MEDS: Aspirin 81 MG TAB.CHEW PO (08:30)
[2023-03-03] MEDS: buPROPion (XL) 150 MG TABLET.XL PO (08:30)
[2023-03-03] MEDS: lamoTRIgine 100 MG Tablet PO (08:30)
[2023-03-03] MEDS: Cholecalciferol (VIT D3) 25 MCG TABLET (1,000 UNITS) 50 MCG PO (08:30)
[2023-03-03] MEDS: levETIRAcetam 500 MG Tablet 750 MG PO (08:30)
[2023-03-03] MEDS: Enoxaparin 40 MG/0.4 ML Syringe SC (08:31)
--- NOTE | 2023-03-03 09:00 | MRI_ITS ---
EXAM: MR HEAD WITHOUT INTRAVENOUS CONTRAST CLINICAL INDICATION: stroke TECHNIQUE: Multiplanar and multisequence MR images of the brain were obtained without intravenous contrast. COMPARISON: CT brain 02/28/2023 FINDINGS: BRAIN AND EXTRA-AXIAL SPACES: Right frontal encephalomalacic changes again seen with posterior dilatation of the right lateral ventricle. No restricted diffusion to suggest acute ischemia. Prominence of the cortical sulci and ventricles related to volume loss change. No intra- or extra-axial hemorrhage. No intracranial mass or mass effect. Posterior fossa structures are unremarkable. Basal cisterns are patent. SELLA: Normal. Normal sella turcica, pituitary gland, infundibular stalk, optic chiasm and hypothalamus. AUDITORY SYSTEM: Normal. The internal auditory canals are patent. BONES/JOINTS: Intact calvarium. SINUSES: Unremarkable as visualized. Clear. MASTOID AIR CELLS: Unremarkable as visualized. Clear. ORBITS: Unremarkable as visualized. Both globes, extraocular muscles, optic nerves and retrobulbar fat appear unremarkable. VASCULATURE: Unremarkable as visualized. Normal flow voids in the major intracranial circulation. MRI/Brain without Contrast IMPRESSION: 1. No evidence of acute ischemia. 2. 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 Electronically Signed: Terence Lehman MD at 12:09 EDT ,
--- NOTE | 2023-03-03 13:35 | PCM.DC.SUM ---
Providers Date of Admission: 02/28/23 Date of Discharge: 03/03/23 Primary Care Physician: Dr. Sunday Mcclelland MD Reason For Visit: AMS, LAYINGDOWN Diagnosis Discharge Diagnosis (1) Loss of consciousness: Status: Acute Code(s): R40.20 - Unspecified coma (2) Presence of permanent cardiac pacemaker: Status: Chronic Code(s): Z95.0 - Presence of cardiac pacemaker (3) S/P VSD repair: Status: Chronic Code(s): Z87.74 - Personal history of (corrected) congenital malformations of heart and circulatory system (4) History of partial seizures: Status: Acute Code(s): Z86.69 - Personal history of other diseases of the nervous system and sense organs (5) Thyroid disease: Status: Acute Code(s): E07.9 - Disorder of thyroid, unspecified (6) Down's syndrome: Status: Acute Code(s): Q90.9 - Down syndrome, unspecified Medications at Discharge Home Medications cholecalciferol (vitamin D3) 50 mcg (2,000 unit) tablet (Vitamin D3) 50 mcg PO DAILY supplement 06/05/21 simvastatin 20 mg tablet 20 mg PO DAILY cholesterol 06/05/21 melatonin 5 mg tablet 5 mg PO QHS 09/26/21 bupropion HCl 300 mg 24 hr tablet, extended release 300 mg PO DAILY 05/02/22 levetiracetam 500 mg tablet 750 mg PO BID 07/24/22 cetirizine 10 mg tablet (Zyrtec) 10 mg PO DAILY PRN ALLERGIES 02/25/23 levothyroxine 100 mcg tablet 100 mcg PO MOTUWETHFRSA THYROID 02/28/23 lamotrigine 100 mg tablet 100 mg PO DAILY #0 tabs 03/03/23 Hospital Course Summary of Care Provided Minutes Spent on Discharge: 35 Hospital Course: Is a 52-year-old gentleman with multiple comorbidities including partial seizures Down syndrome admitted following episode of unconsciousness 1. Altered mental status ? Suspected to be secondary to patient's underlying seizure disorder with breakthrough seizure. Admitted to monitored bed underwent subsequent evaluation with an MRI which was negative for acute CVA. Did continue patient on home antiepileptic medications instructed to follow-up with primary neurologist for subsequent adjustment of his antiseizure medications 2. History of partial seizures ? Patient is on Keppra as well as Lamictal did continue 3. History of VSD ? Status post repair 4. History of sick sinus syndrome ? Status post permanent cardiac pacemaker on 12/10/2021 5. Down syndrome ? Supportive care 6. Hypothyroidism - Patient is on levothyroxine home dose continued 7. DVT prophylaxis ? Low risk Physical Exam Narrative GENERAL: cooperative HEENT: Atraumatic; normocephalic EYES; Anicteric, Normal Conjunctiva NECK; supple, normal thyroid, RESPIRATORY: Diminished to auscultation CARDIOVASCULAR: Regular S1 S2, GI: soft, normoactive bowel sounds, : No Renal angle tenderness; EXTREMITIES: No edema, no clubbing, MUSCULOSKELETAL: no muscle wasting NEURO: Awake; no lateralizing signs. SKIN: No Rash PSYCH; Flat affect Weight / BMI Weight Weight: 54 kg Body Mass Index (BMI) 23.2 ABG / Lab / Microbiology Data Result Diagrams: 03/03/23 05:32 03/03/23 05:32 Laboratory: Laboratory Results - last 24 hr 03/03/23 05:32: WBC 8.4, RBC 4.61, Hgb 15.6, Hct 46.0, MCV 99.8 H, MCH 33.8 H, MCHC 33.9, RDW Std Deviation 52.0 H, RDW Coeff of Annelise 14.1, Plt Count 200, MPV 9.2, Immature Gran % (Auto) 0.500, Neut % (Auto) 66.6, Lymph % (Auto) 19.8, [place] % (Auto) 8.6, Eos % (Auto) 3.3, Baso % (Auto) 1.2 H, Absolute Neuts (auto) 5.6, Absolute Lymphs (auto) 1.67, Nucleated RBC % 0 03/03/23 05:32: Sodium 141, Potassium 4.8, Chloride 112 H, Carbon Dioxide 25.0, Anion Gap 4 L, BUN 16, Creatinine 1.11, Estim Creat Clear Calc 56.31, Est GFR (MDRD) Af Amer 90, Est GFR (MDRD) Non-Af 74, BUN/Creatinine Ratio 14.4, Glucose 104, Calcium 8.7, Total Bilirubin 0.30, AST 36, ALT 75 H, Alkaline Phosphatase 96, Total Protein 6.7, Albumin 3.4, Globulin 3.3, Albumin/Globulin Ratio 1.0 Microbiology: Microbiology 02/28/23 17:00 Urine, Clean Catch Urine Culture - Final Mixed Gram Positive Organisms Radiography Diagnostic Testing: Radiology Impression Brain MRI 03/03/23 09:00 IMPRESSION: 1. No evidence of acute ischemia. 2. 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 Electronically Signed: Terence Lehman MD at 12:09 EDT Reading Location ID and State: [address] [place] [address] Tel , Service support , Meaningful Use Info Meaningful Use Diagnoses (Choose all that apply): None applicable Discharge Plan Admission Admit Date/Time: 02/28/23 14:01 Attending Provider: jJ Treviño Primary Care Provider: Sunday Mcclelland Consulting Providers: Doug Sims ; Doreen Wells Discharge Orders/Prescriptions Prescriptions: New lamotrigine 100 mg Tablet 100 mg PO DAILY Qty: 0 0RF Continued levetiracetam 500 mg tablet 750 mg PO BID cetirizine [Zyrtec] 10 mg tablet 10 mg PO DAILY PRN (Reason: ALLERGIES) simvastatin 20 mg tablet 20 mg PO DAILY Label Comments: TAKE 1 TABLET BY MOUTH EVERYDAY AT BEDTIME cholecalciferol (vitamin D3) [Vitamin D3] 50 mcg (2,000 unit) Tablet 50 mcg PO DAILY melatonin 5 mg Tablet 5 mg PO QHS bupropion HCl 300 mg tablet extended release 24 hr 300 mg PO DAILY Label Comments: TAKE 1 TABLET BY MOUTH EVERY DAY levothyroxine 100 mcg tablet 100 mcg PO MOTUWETHFRSA Label Comments: TAKE ONE TABLET BY MOUTH ONCE DAILY TAKE ON EMPTY STOMACH Referrals / Follow Up: Sunday Mcclelland MD [Primary Care Provider] - Within 1 Week Disposition Disposition (needs filled in before D/C Order can be placed): Home, Self Care Charges/Coding Visit Charges Inpatient E&M: 06747 Disch Hosp >30min
--- NOTE | 2023-03-03 13:45 | PHA.DC.MR ---
Pharmacy Service has performed discharge medication reconciliation for this patient. The patient's discharge medication list was reviewed for discrepancies and discrepancies were resolved. Per hospitalist note and external fill history, Lamictal is not new. Medications reviewed. Home Medications cholecalciferol (vitamin D3) 50 mcg (2,000 unit) tablet (Vitamin D3) 50 mcg PO DAILY supplement 06/05/21 simvastatin 20 mg tablet 20 mg PO DAILY cholesterol 06/05/21 melatonin 5 mg tablet 5 mg PO QHS 09/26/21 bupropion HCl 300 mg 24 hr tablet, extended release 300 mg PO DAILY 05/02/22 levetiracetam 500 mg tablet 750 mg PO BID 07/24/22 cetirizine 10 mg tablet (Zyrtec) 10 mg PO DAILY PRN ALLERGIES 02/25/23 levothyroxine 100 mcg tablet 100 mcg PO MOTUWETHFRSA THYROID 02/28/23 lamotrigine 100 mg tablet 100 mg PO DAILY #0 tabs 03/03/23
--- NOTE | 2023-03-03 14:49 | CASEMGMT ---
RN CM in to discuss discharge needs with patient and family, mother states they would like Outpatient OT at discharge. Mother had no further questions or concerns at home. Script received for outpatient OT. Script provided to nurse to include in discharge instruction.
== END 2023-03-03 15:47 | disposition home or self-care (01) | DRG 101 ==
LOC: ED 14:16 → PCU 15:07
PROVIDERS: Internal Medicine; Admitting Provider Internal Medicine; Emergency Provider Emergency Medicine; PCP Family Medicine; Visit Provider Internal Medicine
DX: G40.209 Localization-related (focal) (partial) symptomatic epilepsy and epileptic syndromes with complex partial seizures, not intractable, without status epilepticus (principal); E03.9 Hypothyroidism, unspecified; I69.334 Monoplegia of upper limb following cerebral infarction affecting left non-dominant side; Q90.9 Down syndrome, unspecified; Z95.0 Presence of cardiac pacemaker; Z87.74 Personal history of (corrected) congenital malformations of heart and circulatory system; Z79.890 Hormone replacement therapy; Z79.899 Other long term (current) drug therapy; H91.93 Unspecified hearing loss, bilateral
CPT/HCPCS: 36415; 70450; 70496; 70498; 70551; 71045; 73090; 73110; 73130; 80048; 80053; 80061; 81001; 82962; 83036; 84439; 84443; 84484; 85025; 85610; 85730; 87086; 87088; 92610; 93005; 93306; 94762; 95819; 97162; 97166; 99285; Q9967; A4216

== ENCOUNTER 2023-05-12 15:30 | Outpatient (RCR) | payer MEDICARE, SELFPAY ==
--- NOTE | 2023-03-04 17:46 | HP.OTEVAL_ITS ---
Patient's Visit Information RAMYA GUILLERMO is a 52 year old M, referred to Occupational Therapy by Dr. Jj Treviño MD, with a diagnosis of weakness, seizure, ataxia. Date of Evaluation: 03/04/23 Occupational Therapist: [facility] - Subjective Patient arrived with parents who have power of risk management manager. On Friday02/28/23, he was found lying down outside and at that time his left arm was flaccid. In the hospital over the weekend and discharged 03/03/23. Parents report they believe patient had a stroke given his symptoms, but the hospital scans came back negative and no signs of fracture. 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 Patient has a high pain threshold, but denies pain at this time. He has had a few seizures in his life, last seizure was in Oct 2022, lasted 5-30 seconds where he is rigid and unresponsive. Parents don't believe this last event was seizure related as previous seizures presented so differently. home environment: lives with parents at their home bedroom is upstairs. 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 Attends [employer] on /. - ADLs Comments: independent with daily self-care - he has modified the way he does things given his L hand/wrist weakness and decreased function but is still modified independent. home mgmt: helps with cleaning, unloading bicycle technician, taking the trash out, does his own laundry - ROM Shoulder: L flexion and abduction: 125 degrees actively Elbow: L flexion 109, extension -10 degrees actively Forearm: L supination neutral actively Wrist: no active wrist movement ROM Comments: R hand dominant. R UE WNL. Able to flex L hand and make a fist but unable to extend fingers actively. able to achieve full PROM of L UE. Tone assessment: patient presenting with slight spasticity in the L long finger flexors, biceps, and pronator muscles. A 1 on the modified otoniel scale. - Strength Shoulder: R flexion: 28.8/extension 20.9; L flexion 19.3/extension 18.4 Elbow: R flexion 19.8/extension 17.5; L flexion 9.8/extension 13 Wrist: R flexion 15.8/extension 16.8 Aquaculturist: R 41; L14 Strength Comments: R UE WNL. L hand: able to actively squeeze and make a fist but cannot extend/open hand - Edema Other: none noted - Sensation Sensation Comments: appears intact, denies any tingling/numbness or parasthesias however patient may not be completely accurate with his response - Visual/Perceptual Skills Comments: no changes in vision, wears glasses - Cognitive Skills Follows Directions: Yes Short Term Memory Impaired: No Cognitive Comments: parents report cognitively he is at his baseline - Attention Attention: Normal - Quick DASH-Disab of Arm,Shoulder& Hand Quick DASH Score: 63.6350 - Goals Goal:: Patient will demonstrate improved L UE strength evidenced by an increase in overall strength in shoulder, elbow, and wound care coordinator strength by at least 5# according to the FET 2 and dynamometer. Goal:: Patient will improve L UE ROM evidenced by ability to actively flex/extend L wrist a total of 30 degrees. Goal:: Patient will improve functional use of left hand evidenced by ability to grasp/release varying sized objects and place in a targeted space with accuracy at least 75% of measured opportunities. Goal:: Patient will improve bimanaul skills evidenced by ability to open varying sized containers/common functional objects independently 75% of the time. Goal:: Patient will be independent with HEP. - Rehabilitation General Assessment: Patient presents to OT evaluation with his parents after a medical event on 02/28/23 that resulted in hospitalization over the weekend. He was discharged home 03/03/23. According to hospital notes and report from physician, patient did not have a CVA but it is unclear exactly what happened, possible seizure, however, parents report his symptoms were and still are very stroke-like. He presents with left sided weakness and at the time of the event, he had left facial drooping and slurred speech which have since resolved. Additionally, per dad's report, patient had increased tone in the L hand requiring overpressure to achieve full PROM with finger extension. Patient continues to demonstrate a 1 on the MAS for tone in the L biceps, finger flexors, and pronator muscles. He has no active movement in the L wrist, no finger extension, and reduced active movement and strength in the remainder of his arm. Patient would benefit from skilled occupational therapy to rehab L UE to improve active ROM and strength. Rehabilitation Potential: Good - Anticipated Interventions Early Active Motion, Strengthening, Fine Motor Coord/Vik, Neuro Reeducation, ADL Training - Visit Plan Frequency: 2x /Week Duration: 10 weeks General Plan: 2x/week for 10 weeks; 60 minute appointments unless there is a need to reduce to 30 minute appointments based on how the first few go. Looking to maximize his available visits. Plan to use neuro re-ed techniques to improve AROM and strength to L UE including e stim, repetitive task practice, exercise, AAROM, mirror therapy, bimanual tasks, and weight bearing. TEXT: Thank you for the opportunity to evaluate your patient. For Medicare and Medicare HMO plans, please review the plan of care and approve it. It will need to be FAXED BACK to us at [phone] for Medicare purposes. Please let me know if there are questions or concerns regarding this plan of care. Physician Signature: Date:
--- NOTE | 2023-05-12 18:21 | HP.OTDCSUM ---
Discharge Summary D/C Summary: It has been my pleasure to treat RAMYA GUILLERMO under orders from Dr. Sunday Mcclelland MD, for the diagnosis of weakness, seizure, ataxia for a total of 17 visit(s). Please see the following information for a summary of their discharge status. Overall Improvement % Improvement: 50 Objective Objective/Function: Shoulder: (eval) R flexion: 28.8/extension 20.9; L flexion 19.3/extension 18.4 Current (retested all for accurate comparison): R flexion: 18.5/extension 23.8; L flexion 15.9/extension 14.1 Elbow: (eval) R flexion 19.8/extension 17.5; L flexion 9.8/extension 13 Current (retested all for accurate comparison): R flexion 14.9/extension 23; L flexion 12.4/extension 13 Grounds Cleaner: (Eval) R 41; L14 Current: R 45# L 18# (Eval) no active wrist movement Current: 5/15 wrist extension while resting on elbow- 30 degrees with hand in pronation therapy session was directly supervised and doc. approved by Yue Nguyen OTR/Nati,CHT. Goals Patient Goals: Improve Fine Motor Skills, Use Hand/Wrist/Arm Normally Again, Increase ROM, Be More Independent in ADLS and Resume Former Household Responsibilities (Cooking,Cleaning,Yard, etc.) Other: increase strength Goal:: Patient will demonstrate improved L UE strength evidenced by an increase in overall strength in shoulder, elbow, and vendor management consultant strength by at least 5# according to the FET 2 and dynamometer. Goal:: Patient will improve L UE ROM evidenced by ability to actively flex/extend L wrist a total of 30 degrees. Goal:: Patient will improve functional use of left hand evidenced by ability to grasp/release varying sized objects and place in a targeted space with accuracy at least 75% of measured opportunities. Goal:: Patient will improve bimanaul skills evidenced by ability to open varying sized containers/common functional objects independently 75% of the time. Goal:: Patient will be independent with HEP. Plan Plan: cont 2x/week for 10 weeks; total 20 visits Will focus on functional tasks and shoulder strengthening with air cast Discontinue on 05/15 Try mirror therapy next session? D/C Information Discharge Comments: Pt has been seen for 18 visits of skilled OT sessions. Pt making minimal, inconsistent gains throughout sessions. Therapist directed neuro re-ed, exercises, modalities, and therapeutic activities where spasticity has minimal change throughout sessions. Pt able to open containers with adapted approach. Pt's DASH score improved by 13 points. Spasticity continues to limit full recovery at this time. Advised to limit overstretching and discuss with neurologist for next care planning for spasticity. Pt and pt's dad agreeable for discharge at this time and reports will continue with HEP. d/c sentence: If there are questions or concerns regarding this patient's occupational therapy, please fell free to call me at [phone]. Thank you for the referral of this patient. Sincerely, Yue Nguyen, OTR/L, CHT
== END 2023-05-12 19:00 | disposition home or self-care (01) ==
LOC: OT 15:30
PROVIDERS: PCP Family Medicine; Referring Provider Internal Medicine; Visit Provider Family Medicine
DX: R27.0 Ataxia, unspecified (principal); R53.1 Weakness; R56.9 Unspecified convulsions
CPT/HCPCS: 97110; 97112; 97140; 97166; 97530; 97760

== ENCOUNTER 2023-09-10 09:25 | Emergency (ER) | payer MEDICARE, SELFPAY ==
[2023-09-10 09:26] VITALS: BP 96/70; PULSE 64; RESP 16; TEMP 39.9; O2SAT 99; BMI 23.9
--- NOTE | 2023-09-10 10:48 | CT_ITS ---
STUDY: CT BRAIN WITHOUT CONTRAST REASON FOR EXAM: Male, 53 years old. Head injury. Recent falls. RADIATION DOSAGE (If Supplied By Facility): CTDIvol = ( 44.99 ) mGy, DLP = ( 745.49 ) mGycm TECHNIQUE: Transaxial CT imaging of the brain was performed without administration of intravenous contrast material. Individualized dose optimization techniques were used for this CT. COMPARISON: Comparison is made with prior study dated February 28, 2023. FINDINGS: Normal soft tissue structures. Normal calvarium. Large left isodense acute on subacute subdural hematoma overlying the left frontoparietal occipital lobes with shift of the midline towards the right side of 1 cm. There is dilatation of the right temporal horn. Progressive white matter edema in the right frontal lobe. Subfalcine herniation should be ruled out. Normal basal ganglia and thalami. Normal brainstem. Normal cerebellum. There is no intracranial hemorrhage. There are no findings of an acute ischemic infarction. Normal visualized paranasal sinuses. CT/Brain/Head without Contrast IMPRESSION: Large left-sided acute on subacute subdural hematoma overlying the left frontoparietal occipital lobes with shift of the midline towards the right side of 1 cm. Dilatation of the right temporal horn suggestive of a subfalcine herniation. Focal areas of decreased attenuation in the right frontal lobe suggestive of a old infarction with encephalomalacia. N.B. : The above Results were Read Back by Alex Atkinson MD to Blayne Jacob DO, and understanding confirmed on 09/10/2023 12:21:10 (ET). Electronically Signed: Alex Atkinson MD at 12:22 EST ,
--- NOTE | 2023-09-10 10:48 | EKG12_ITS ---
Test Reason : Blood Pressure : / mmHG Vent. Rate : 063 BPM Atrial Rate : 063 BPM P-R Int : 158 ms QRS Dur : 082 ms QT Int : 402 ms P-R-T Axes : 026 030 030 degrees QTc Int : 411 ms Normal sinus rhythm Minimal voltage criteria for LVH, may be normal variant ( R in aVL ) Borderline ECG Confirmed by DRE PARKER, SHERRILL ([id number]), video news editor SHAHZAD BUSTAMANTE ([id number]) on 09/11/2023 10:41:12 AM Referred By: Confirmed By:SHERRILL ERICKSON MD
--- NOTE | 2023-09-10 10:50 | EX.ED.DYSGE1 ---
HPI History of Present Illness Chief Complaint: Seizure Informant: patient, family and EMS Narrative Narrative: 53-year-old male with a history of Down syndrome and seizure disorder presenting to the emergency room with change in seizure patterns. Patient is currently under the care of Dr. Monk (neurology [facility]). Recently at the end of July the Keppra was discontinued. Due to side effects they have been changing the dosing of Lamictal and Zonegran and is set to begin Clobazam. They note over the past week the patient has been requiring significantly more help with ADLs and has been falling. They state that he has hit his head and right ribs. Today they noticed a seizure that lasted at least a minute. They describe it as partial complex. They note that his seizures typically only last 5 to 10 seconds. He has had an increase in the frequency of seizures as well. No reported infectious symptoms. There is a triage temperature of 103.9 but he is 97.9 orally on my examination [facility] Medical History Anxiety BPH (benign prostatic hyperplasia) Congenital heart disease Depression Down's syndrome Hearing loss, left Hearing loss, right History of echocardiogram History of partial seizures Loss of consciousness Non-smoker Presence of permanent cardiac pacemaker (~12/10/21) Stroke, hemorrhagic Thyroid disease VSD (ventricular septal defect) Wears glasses Wears hearing aid in both ears Home Medications cholecalciferol (vitamin D3) 50 mcg (2,000 unit) tablet (Vitamin D3) 50 mcg PO DAILY supplement 06/05/21 [History Last Taken 02/28/23] simvastatin 20 mg tablet 20 mg PO DAILY cholesterol 06/05/21 [History Last Taken 02/27/23] melatonin 5 mg tablet 5 mg PO QHS 09/26/21 [History Last Taken 02/27/23] cetirizine 10 mg tablet (Zyrtec) 10 mg PO DAILY PRN ALLERGIES 02/25/23 [History Last Taken 02/28/23] levothyroxine 100 mcg tablet 100 mcg PO MOTUWETHFRSA THYROID 02/28/23 [History Last Taken 02/28/23] clobazam 10 mg tablet 5 mg PO DAILY 09/10/23 [History Last Taken Unknown] lamotrigine 100 mg tablet 100 mg PO BID 09/10/23 [History Last Taken Unknown] wswfqkjy-iit-sivzo-vit K-lycop PO 09/10/23 [History Last Taken Unknown] sertraline 50 mg tablet 25 mg PO DAILY 09/10/23 [History Last Taken Unknown] zonisamide 100 mg capsule 100 mg PO DAILY 09/10/23 [History Last Taken Unknown] Allergy/AdvReac Type Severity Reaction Status Date / Time latex Allergy PT UNSURE Verified 09/10/23 09:32 OF REACTION Penicillins [PCN] Allergy Rash Verified 09/10/23 09:32 Family History Father No problems noted. Mother No problems noted. Surgical History Hx of cholecystectomy S/P VSD repair Social History household members: family Smoking Status: Unknown if ever smoked alcohol intake: never substance use type: does not use ROS ROS ED Constitutional Constitutional ED: Reports fever(s); Denies chills or weight loss Eyes Eyes: Denies change in vision or diplopia ENT ENT ED: Denies ear pain, rhinorrhea or sore throat Cardiovascular Cardiovascular: Reports chest pain; Denies orthopnea, palpitations or racing heartbeat Respiratory/Chest Respiratory/Chest: Denies cough, dyspnea or orthopnea Gastrointestinal Gastrointestinal: Denies abdominal pain, diarrhea, nausea or vomiting Genitourinary Genitourinary ED: Denies dysuria, hematuria or urinary frequency Musculoskeletal Musculoskeletal: Denies arthralgias or myalgias Integumentary Denies abscess or rash Neurologic Neurologic: Reports other Details: Change in quantity and quality of seizures ; Denies headache(s), paresthesias or weakness Psychiatric Psychiatric: Denies anxiety, depression, suicidal ideation or suicidal thoughts Endocrine Endocrinology: Denies polydipsia, polyphagia or polyuria Allergic/Immunologic Allergic/Immunologic ED: Denies mouth swelling, tongue swelling or urticaria EXAM Physical Exam Const Vital Signs: 09/10/23 09:26 09/10/23 12:10 Temperature 103.9 F H Temperature Source Temporal Pulse Rate 64 80 Respiratory Rate 16 19 H Blood Pressure 96/70 96/74 Blood Pressure Mean 78 81 Pulse Ox 99 27 Oxygen Delivery Method Room Air Positive well nourished and well developed General Appearance ED: well developed HEENT Reports normocephalic and moist mucous membranes HEENT Narrative: Contusion left high tempo - parietal region of scalp Eyes PERRL and EOMs intact bilaterally Neck no lymphadenopathy, supple and no JVD Chest Wall Chest Narrative: Tender to palpation mid to lower right mid axillary ribs. No ecchymosis or crepitance felt Resp normal respiratory effort and clear to auscultation bilaterally Cardio regular rate, regular rhythm and no murmurs GI normal to inspection, nondistended, normoactive bowel sounds and non-tender Palpation: soft Back/Spine no CVA tenderness and normal ROM Extremity normal to inspection General Extremety ED: Negative for edema General Extremity: Negative for edema Neuro oriented x3 and CN's II-XII intact bilaterally Neuro Narrative: GCS 15 Sensorium / Orientation: alert Motor Exam: strength 5/5 throughout Psych mental status grossly normal Mood & Affect: Negative for depressed or tearful Skin no rashes or lesions noted and no wounds MDM MDM MDM Narrative Medical decision making narrative: Spoke with the family after the H&P and informed them that most likely he would need to be transferred. I told him this is they were not thinking that that was going to be needed that he could follow-up as an outpatient but after reading the dad's notes about how much she is changed I thought it was most likely the endpoint. Basic blood work was ordered. This showed normal coags. White count 9.2 hemoglobin of 14.3 platelet count of 254. BMP lactic acid CMP otherwise negative except for alk phos of [address] the brain demonstrates a large left subdural hematoma with shift and possible early subfalcine herniation. Family was updated. His neurologist is at [facility]. I spoke with the [facility] transfer line and then [facility] Dr. Jimenez. Patient has been accepted. While we await for the ambulance we will obtain a CT of the cervical spine and of the chest to evaluate for the rib tenderness and for spine injury. He continues to be at his neurologic baseline per the parents with a GCS of 15. History & Record Review Discussion w/independent historian: EMS personnel, Patient and Family Additional record(s) reviewed:: Prior labs Lab Data Attestation: I reviewed the patient's lab results. Labs: Laboratory Results - last 24 hr 09/10/23 11:10 WBC 9.2 RBC 4.34 L Hgb 14.3 Hct 42.6 MCV 98.2 H MCH 32.9 H MCHC 33.6 RDW Std Deviation 51.0 H RDW Coeff of Annelise 14.0 Plt Count 254 MPV 9.0 Immature Gran % (Auto) 0.400 Neut % (Auto) 80.0 H Lymph % (Auto) 9.8 L [place] % (Auto) 7.4 Eos % (Auto) 1.2 Baso % (Auto) 1.2 H Absolute Neuts (auto) 7.4 Absolute Lymphs (auto) 0.90 Nucleated RBC % 0 PT 14.7 INR 1.1 APTT 29.1 Sodium 139 Potassium 4.0 Chloride 108 H Carbon Dioxide 27.0 Anion Gap 4 L BUN 13 Creatinine 1.19 Estim Creat Clear Calc 51.94 Est GFR (MDRD) Af Amer 83 Est GFR (MDRD) Non-Af 68 BUN/Creatinine Ratio 10.9 Glucose 107 H Lactic Acid 1.1 Calcium 9.1 Total Bilirubin 0.40 Direct Bilirubin 0.12 AST 34 ALT 64 H Alkaline Phosphatase 211 H Total Protein 7.3 Albumin 3.4 Globulin 3.9 Lipase 27 Radiography Diagnostic Testing: Clinical Impression(s) from Imaging Studies Brain CT 09/10/23 10:48 IMPRESSION: Large left-sided acute on subacute subdural hematoma overlying the left frontoparietal occipital lobes with shift of the midline towards the right side of 1 cm. Dilatation of the right temporal horn suggestive of a subfalcine herniation. Focal areas of decreased attenuation in the right frontal lobe suggestive of a old infarction with encephalomalacia. N.B. : The above Results were Read Back by Alex Atkinson MD to Blayne Jacob DO, and understanding confirmed on 09/10/2023 12:21:10 (ET). Electronically Signed: Alex Atkinson MD at 12:22 EST , ADDENDUM: 09/10/23 1225 IMPRESSION: Large left-sided acute on subacute subdural hematoma overlying the left frontoparietal occipital lobes with shift of the midline towards the right side of 1 cm. Dilatation of the right temporal horn suggestive of a subfalcine herniation. Focal areas of decreased attenuation in the right frontal lobe suggestive of a old infarction with encephalomalacia. N.B. : The above Results were Read Back by Alex Atkinson MD to Blayne Jacob DO, and understanding confirmed on 09/10/2023 12:21:10 (ET). Electronically Signed: Alex Atkinson MD at 12:22 EST , Cervical Spine CT 09/10/23 12:23 IMPRESSION: Multilevel degenerative changes. Electronically Signed: Carla Ridley MD at 12:59 EST , Chest CT 09/10/23 12:29 IMPRESSION: Bilateral groundglass opacities, a nonspecific finding which may be secondary to edema and/or an infectious process. Healing left acromium and left second and 10th rib fractures. Electronically Signed: Carla Ridley MD at 12:54 EST , EKG Initial EKG: Attestation: I personally reviewed and interpreted this EKG as follows: Comments: Normal sinus rhythm ventricular rate of 63 bpm Management Discussion w/another healthcare provider: Other (Dr. Jimenez ([facility])) Critical Care Time Critical Care Time: Yes Critical care time (excluding procedures): 30-74 minutes (34 min), Including time spent:, Discussing w/Patient &/or Family/Quality Control Supervisor, Discussing w/Consultants, Arranging Admission or Transfer and Performing Direct Patient Care at Bedside Discharge Plan Triage Chief Complaint: Seizure ED Provider: Blayne Jacob Dx/Rx/DC Orders Clinical Impression: Acute subdural hematoma, Down's syndrome, Epileptic seizure Prescriptions: No Action cetirizine [Zyrtec] 10 mg tablet 10 mg PO DAILY PRN (Reason: ALLERGIES) simvastatin 20 mg tablet 20 mg PO DAILY Patient Comments: TAKE 1 TABLET BY MOUTH EVERYDAY AT BEDTIME cholecalciferol (vitamin D3) [Vitamin D3] 50 mcg (2,000 unit) Tablet 50 mcg PO DAILY melatonin 5 mg Tablet 5 mg PO QHS levothyroxine 100 mcg tablet 100 mcg PO MOTUWETHFRSA Patient Comments: TAKE ONE TABLET BY MOUTH ONCE DAILY TAKE ON EMPTY STOMACH sertraline 50 mg tablet 25 mg PO DAILY Patient Comments: take 1/2 tablet by mouth once a day.] pxnqiazg-ekk-uasam-vit K-lycop [Men's 50 Plus Multivitamin] PO clobazam 10 mg tablet 5 mg PO DAILY Patient Comments: NEW MED ADDED. PT HAS NOT STARTED YET DUE TO NOT BEING IN STOCK IN PHARMACY. zonisamide 100 mg capsule 100 mg PO DAILY Patient Comments: PT TO WEAN AND D/C ON 09/16 lamotrigine 100 mg Tablet 100 mg PO BID Primary Care Provider: Sunday Mcclelland Referrals: Sunday Mcclelland MD [Primary Care Provider] - Disposition Disposition: Acute Care Hospital Discharge Location: [facility]
[2023-09-10 11:17] LABS: Absolute Neutrophil Count 7.4 X10^3/uL (2.0-7.7); Basophil# 0.11 X10^3/uL; Basophil% 1.2 % (0-1); Eosinophil# 0.11 X10^3/uL; Eosinophils% 1.2 % (0-5); Hematocrit 42.6 % (40-54); Hemoglobin 14.3 g/dL (13.0-16.5); Lymphocyte % 9.8 % (19-41); Mean Corp Hgb Conc 33.6 g/dL (32-36); Mean Corpuscular Hgb 32.9 pg (27.0-32.0); Mean Corpuscular Volume 98.2 fL (80-94); Monocyte# 0.68 X10^3/uL; Monocyte% 7.4 % (0-10); NRBC Flagged by Analyzer 0 % (0-5); Neutrophil # 7.38 X10^3/uL (2.7-7.7); Platelet Count 254 K/mm3 (150-450); Red Blood Count 4.34 M/mm3 (4.6-6.2); White Blood Count 9.2 K/mm3 (4.4-11.0)
[2023-09-10] MEDS: 0.9% Normal Saline (1000mL) 1,000 ML 1000 ML IV (11:25)
[2023-09-10 11:31] LABS: International Normalized Ratio 1.1; Partial Thromboplast Time 29.1 Seconds (24.1-36.2); Prothrombin Time (Protime)PT. 14.7 SECONDS (11.7-14.9)
[2023-09-10 11:35] LABS: AST(SGOT) 34 U/L (15-37); Alanine Aminotransfer ALT/SGPT 64 U/L (16-61); Albumin, Serum 3.4 g/dL (3.2-5.0); Alkaline Phosphatase 211 U/L (45-117); Anion Gap 4 (5-15); BUN 13 mg/dL (7-18); BUN/Creat Ratio 10.9 RATIO (10-20); Bilirubin, Direct 0.12 mg/dL (0.00-0.30); Calcium,Total 9.1 mg/dL (8.5-10.1); Chloride 108 mmol/L (98-107); Creatinine, Serum 1.19 mg/dL (0.70-1.30); EST Glomerular Filtration Rate 68 mL/min (>60); Est Glom Filt Rate - Afr Amer 83 mL/min (>60); Estimated Creatinine Clearance 51.94 ml/min; Globulin 3.9 g/dL (2.2-4.2); Glucose 107 mg/dL (74-106); Lipase 27 U/L (13-75); Protein, Total 7.3 g/dL (6.4-8.2); Sodium Level 139 mmol/L (136-145)
[2023-09-10 11:40] LABS: Lactic Acid 1.1 mmol/L (0.4-1.9)
[2023-09-10 12:10] VITALS: BP 96/74; PULSE 80; RESP 19; O2SAT 27
--- NOTE | 2023-09-10 12:23 | CT_ITS ---
INDICATION: injury EXAMINATION: CT CERVICAL SPINE - CT Spine Cervical W/O Contrast Injection TECHNIQUE: Helically acquired images were obtained of the cervical spine. 2D reformatted images were reviewed. A radiation dose optimization technique was used for this scan. IV Contrast dosage and agent: None. RADIATION DOSAGE (If Supplied By Facility): CTDIvol = ( 13.97 ) mGy, DLP = ( 253.77 ) mGycm COMPARISON: December 05, 2021 FINDINGS: There is a separate dedicated CT report of the head. VERTEBRAE: No fracture or traumatic subluxation. No discrete lytic or blastic abnormality. There is stable loss of the normal cervical lordosis. There is multilevel endplate spondylosis and facet hypertrophy. Normal craniocervical junction and cervicothoracic junction. DISCS and SPINAL CANAL: There is multilevel degenerative disc disease. No critical stenosis. NECK SOFT TISSUES: No prevertebral soft tissue swelling. There is no cervical adenopathy. LUNG APICES: There is a separate dedicated CT report of the chest. CT/Spine Cervical without Contras IMPRESSION: Multilevel degenerative changes. Electronically Signed: Carla Ridley MD at 12:59 EST ,
--- NOTE | 2023-09-10 12:29 | CT_ITS ---
INDICATION: right chest wall trauma EXAMINATION: CT CHEST WITHOUT CONTRAST - CT Chest W/O Contrast Injection TECHNIQUE: Helically acquired images were obtained of the chest. A radiation dose optimization technique was used for this scan. IV Contrast dosage and agent: None. RADIATION DOSAGE (If Supplied By Facility): CTDIvol = ( 10.01 ) mGy, DLP = ( 310.14 ) mGycm COMPARISON: June 05, 2021 FINDINGS: Motion artifact degrades anatomic detail. LUNGS, PLEURA AND LARGE AIRWAYS: There are scattered bilateral groundglass opacities throughout the lungs. . No pneumothorax. THYROID: No thyroid lesions. HEART AND PERICARDIUM: Heart size is normal. No pericardial effusion. CORONARY ARTERIES: Coronary artery calcification is not seen. VESSELS: Thoracic aorta is not dilated. MEDIASTINUM AND TEAGAN: No mediastinal or hilar adenopathy. Esophagus is unremarkable. No hiatal hernia. UPPER ABDOMEN: No acute pathology. BONES: There is a deformity within the left acromium consistent with a healing fracture. There are healing left second and 10th rib fractures. There are additional old left rib fractures. CT/Chest without Contrast IMPRESSION: Bilateral groundglass opacities, a nonspecific finding which may be secondary to edema and/or an infectious process. Healing left acromium and left second and 10th rib fractures. Electronically Signed: Carla Ridley MD at 12:54 EST ,
[2023-09-10] MEDS: 0.9% Normal Saline (1000mL) 1,000 ML 150 ML IV (12:30)
[2023-09-10 13:15] VITALS: BP 92/62; PULSE 62; RESP 16; O2SAT 97
[2023-09-12 15:08] LABS: Lamotrigine (Lamictal) Level 8.5 ug/mL (2.0-20.0)
== END 2023-09-10 13:24 | disposition short-term general hospital (02) ==
PROVIDERS: Emergency Provider Emergency Medicine; PCP Family Medicine; Visit Provider Emergency Medicine
DX: I62.01 Nontraumatic acute subdural hemorrhage (principal); G40.909 Epilepsy, unspecified, not intractable, without status epilepticus; Q90.9 Down syndrome, unspecified
CPT/HCPCS: 70450; 71250; 72125; 80048; 80076; 82542; 83605; 83690; 85025; 85610; 85730; 87428; 93005; 96360; 96361; 99285; J7030

== ENCOUNTER 2023-12-11 17:00 | Outpatient (RCR) | payer MEDICARE, SELFPAY ==
--- NOTE | 2023-10-03 11:05 | HP.PTEVAL ---
Patient's Visit Information Visit Information Visit Information: RAMYA GUILLERMO is a 53 year old M referred to Physical Therapy by TEJINDER GONZALES with a diagnosis of subdural hematoma. Date of Evaluation: 10/03/23 Physical Therapist: Karson Hernández, PT, ATC Visit Plan Frequency: 2x /Week Duration: 4-6 Weeks Plan: Pt has a 5# lifting limit at this time L LE strengthening, balance and proprio, gait training, stair negotiation, transfer training, nustep, and HEP Subjective Subjective: Pt had multiple seizures on 09/10/23 which resulted in a subdural hematoma on the L side of his brain. Pt notes he had the bleed drained which helped out a lot. Pt now is very fatigued, has difficulty with sit to stand transfers, and is weak on the L side of his body. Pt also has difficulty with ambulation at this time. Pt has had a similar experience to this a long time ago which effected his R side of the body which he recovered well from. Pt has 13 stairs at home that he is going to have to be able to negotiate when he is all better. Pt reports he has good sensation in his LE's. Pt has a 5# lifting limit in order to avoid increasing intercranial pressure. Pt is not in any pain at this time. Ramya is retired at this time. Objective Objective: Neuro: B LE sensation is WNL to light touch. B patellar reflex 3/3 sit to stand 30 sec: 4.5 reps 6 min walk test: 460 feet MMT: R LE grossly 5/5 throughout while L LE is 4-/4 throughout Stairs: able to negotiate 23 stairs with 2 handrails, very slowly Balance/Special Test Scores Lower Extremity Functional Score: 15 Goals Goal 1:: Increase L LE strength x 1 grade to aid with stair negotiation Goal Time Frame: 4-6 Weeks Goal 2:: Pt will be able to reciprocally negotiate 13 steps with use of 0-1 handrails to aid with I at home Goal 3:: Pt will perform 8 sit to stand transfers in 30 sec to aid with I at home Goal Time Frame: 4-6 Weeks Goal 4:: Pt will be able to ambulate greater than 800 feet in 6 min walk test to aid with community ambulation Goal Time Frame: 4-6 Weeks Goal 5:: I with HEP Goal Time Frame: 6-8 Weeks Rehabilitation Potential Physical Therapy Diagnosis: Pt has L LE weakness, decreased balance, and difficulty with transfers secondary to residual effects from subdural hematoma Rehabilitation Potential: Good Anticipated Interventions Patient/Client Instruction: Educate patient on: Condition and Plan of Care For the Purpose of:: To improve self management Therapeutic Exercise to Include: Strength training, Endurance training, Balance training, Gait and locomotor training, Passive ROM, Active ROM and Dynamic Lumbar Stabilization For the Purpose of:: To improve muscle performance and motor function, To increase tolerance to activity/condition/position and To improve performance and independence with ADL's Text: Thank you for the opportunity to evaluate your patient. For Medicare and Medicare HMO plans, please review the plan of care and approve it. It will need to be FAXED BACK to us at [phone] for Medicare purposes. For Medicare only, by signing this I certify the plan of care. Please let me know if there are questions or concerns regarding this plan of care. Physician Signature: Date:
--- NOTE | 2023-10-03 11:51 | HP.OTEVAL ---
Patient's Visit Information Visit Information Visit Information: RAMYA GUILLERMO is a 53 year old M, referred to Occupational Therapy by TEJINDER GONZALES, with a diagnosis of SDH. Date of Evaluation: 10/03/23 Occupational Therapist: Yue Nguyen, OTR/Nati, CHT Subjective Subjective: This 53 year old male was seen for OT eval with dx of craniotomy- February 2023- found in yard- had seizure that affected left arm- Jun 27- new seizure-worked with medication- no change with CT scar found slow bleed, and went to [facility] for craniotomy. pt states pt was released 09/15/23 and family has been mtg. pts. pt states residual blood still on the brain- so next will go for another CT scan pt is on 5# lifting restriction ADLs Comments: pt lives with family in two story home 13 steps to his bedroom has railing x 2 pt does by himself but slow father states pt is at supervised level with bathing/dressing family has been putting socks on. has grab bars in shower- pt states he goes to [employer] - with family (5 days a week for about 4 hrs) ROM Shoulder: right 160 left 130 Elbow: right WNL left -65/135 Forearm: right WNL left slight trace of sup/pron Wrist: right WNL left trace ROM Comments: right hand composite fist left min motion- increase tone pt demo trace of left shoulder shrug Strength Electrical Design Technician: right 50# left 5# Lateral Pinch: right 6# left unable Tripod Pinch: right 3# left unable Sensation Sensation Comments: denies Movement Muscle Tone: pt demo with increase tone of left UE Visual/Perceptual Skills Comments: denies Attention Attention: Normal Goals Goal:: pt will demo a left applications developer strength of 40# or greater to return to using left UE with ADLs by d/c pt will demo a 6# tripod pinch to increase use of left hand with ADls and IADls. Goal:: pt will demo the ability to perform left shoulder shrugs to increase IND with ADLS by d.c pt will demo left shoulder flexion to 150* or greater to increase pt IND with ADLs and reaching IADLS by d/c pt will demo left forearm supination to WNL for pt to receive coins, items without dropping by d.c pt will demo the ability to form a grasp/release to picket [employer] small, med. and large objects to increase pts ind. with ADLs by d/c Goal:: pt will demo increase in left hand grasp/release, manipulate tying shoes , opening pen/marker caps by d/c Goal:: pt and family will report IND with donning socks and shoes by dc Rehabilitation General Assessment: pt arrives 3 weeks and 2 days s/p from Craniotomy- pt demo with left UE limited ROM, weakness and increase tone limiting pts use of left UE with all ADLS and IADLs. Pt would benefit from skilled OT services 2-3x week for 8 weeks to increase decrease pts tone, improve left UE ROM and strength to return pt to his PLOF. Pt and pts father agree with POC. Rehabilitation Potential: Good Anticipated Interventions Anticipated Interventions: A/AAROM/PROM, Strengthening, Triggerpoint Release, Sensory Retraining, Modalities, Fine Motor Coord/Vik, Neuro Reeducation, ADL Training, Education re assistive Equipment, Education re Diagnosis, Caregiver Training and Home Program Visit Plan Frequency: 2-3x /Week Duration: 2 Months TEXT: Thank you for the opportunity to evaluate your patient. For Medicare and Medicare HMO plans, please review the plan of care and approve it. It will need to be FAXED BACK to us at [phone] for Medicare purposes. Please let me know if there are questions or concerns regarding this plan of care. Physician Signature: Date:
--- NOTE | 2023-11-04 15:09 | HP.PTREVAL ---
Re-Evaluation Intro: TEJINDER GONZALES, It has been my pleasure to treat RAMYA GUILLERMO over the last 10 visits for subdural hematoma. Please see the progress note below for an update on the physical therapy plan of care! Subjective Subjective: Pt reports he feels like PT has been helping him out a lot at this time. Pt reports she still gets very tired with most activity. Objective Objective/Function: MMT: L hip flex/abd/add are all 5/5 throughout. L knee flex and ext 4+/5 Stairs: Pt is able to negotiate 2 flights of steps with the use of one UE. Pt negotiates them very slowly, and requires SBA for safety. sit to stands: Pt is able to stand up 5 times in 30 seconds walking: Pt is able to ambulate 850 feet until needing to rest and becoming unstable with gait, almost experiencing multiple LOB episodes. Pt was able to ambulate 640 feet in 6 minutes. Pt is I with HEP Plan Plan Plan: Attempt to get 10 more visits approved to focus on L LE strength, ambulation tolerance, and safe stair negotiation to aid with I at home and in the community. Balance/Gait/Functional tests Balance/Special Test Scores Lower Extremity Functional Score: 39 Goals Goals Goal 1:: Increase L LE strength x 1 grade to aid with stair negotiation Goal Time Frame: 4-6 Weeks Goal Progress: Progressing Goal 2:: Pt will be able to reciprocally negotiate 13 steps with use of 0-1 handrails to aid with I at home Goal Progress: Goal Met Goal 3:: Pt will perform 8 sit to stand transfers in 30 sec to aid with I at home Goal Time Frame: 4-6 Weeks Goal Progress: Progressing Goal 4:: Pt will be able to ambulate greater than 800 feet in 6 min walk test to aid with community ambulation Goal Time Frame: 4-6 Weeks Goal Progress: Progressing Goal 5:: I with HEP Goal Time Frame: 6-8 Weeks Goal Progress: Goal Met Anticipated Interventions Anticipated Interventions Patient/Client Instruction: Educate patient on: Condition and Plan of Care For the Purpose of:: To improve self management Therapeutic Exercise to Include: Strength training, Endurance training, Balance training, Gait and locomotor training, Passive ROM, Active ROM and Dynamic Lumbar Stabilization For the Purpose of:: To improve muscle performance and motor function, To increase tolerance to activity/condition/position and To improve performance and independence with ADL's Re-Evaluation Ending Re-evaluation ending: Please do not hesitate to contact me at [phone] by phone or if you have questions or concerns regarding this new plan of care! Sincerely, Karson Hernández, PT, ATC
--- NOTE | 2023-12-19 07:45 | HP.OTDCSUM ---
Discharge Summary D/C Summary: It has been my pleasure to treat RAMYA GUILLERMO under orders from TEJINDER GONZALES, for the diagnosis of SDH for a total of 5 visit(s). Please see the following information for a summary of their discharge status. Overall Improvement % Improvement: 70 Goals Patient Goals: Regain Mobility, Improve Fine Motor Skills, Use Hand/Wrist/Arm Normally Again and Be More Independent in ADLS Goal:: pt will demo a left grip assembler strength of 40# or greater to return to using left UE with ADLs by d/c pt will demo a 6# tripod pinch to increase use of left hand with ADls and IADls. Goal:: pt will demo the ability to perform left shoulder shrugs to increase IND with ADLS by d.c pt will demo left shoulder flexion to 150* or greater to increase pt IND with ADLs and reaching IADLS by d/c pt will demo left forearm supination to WNL for pt to receive coins, items without dropping by d.c pt will demo the ability to form a grasp/release to machine operator hop picker small, med. and large objects to increase pts ind. with ADLs by d/c Goal:: pt will demo increase in left hand grasp/release, manipulate tying shoes , opening pen/marker caps by d/c Goal:: pt and family will report IND with donning socks and shoes by dc Plan Plan: Ramya and his father arrived to OT to thank us for working with him- due to Ramya's mom having heart attack and insurance issues they will continue with a HEP. both agree with d/c D/C Information d/c sentence: If there are questions or concerns regarding this patient's occupational therapy, please fell free to call me at [phone]. Thank you for the referral of this patient. Sincerely, Yue Nguyen, OTR/L, CHT
== END 2023-12-11 19:00 | disposition home or self-care (01) ==
LOC: PT 17:00
PROVIDERS: PCP Family Medicine
DX: S06.5XAD Traumatic subdural hemorrhage with loss of consciousness status unknown, subsequent encounter (principal)
CPT/HCPCS: 97014; 97110; 97112; 97161; 97166; 97530; G0283

== ENCOUNTER 2024-03-16 16:24 | Emergency (ER) | payer MEDICARE, SELFPAY ==
[2024-03-16 16:25] VITALS: BP 104/76; PULSE 60; RESP 18; TEMP 36.4; O2SAT 100; BMI 23.8
[2024-03-16 16:39] VITALS: O2SAT 98
--- NOTE | 2024-03-16 18:01 | CT_ITS ---
STUDY: CT BRAIN WITHOUT CONTRAST REASON FOR EXAM: Male, 53 years old. Head trauma, walking to the right RADIATION DOSAGE (If Supplied By Facility): CTDIvol = ( 44.99 ) mGy, DLP = ( 745.49 ) mGycm TECHNIQUE: Transaxial CT imaging of the brain was performed without administration of intravenous contrast material. Individualized dose optimization techniques were used for this CT. COMPARISON: September 10, 2023 FINDINGS: Normal soft tissue structures. There is left frontal craniotomy. There is mild cerebral atrophy with widening of the extra-axial spaces and ventricular dilatation. There are areas of decreased attenuation within the white matter tracts of the supratentorial brain, consistent with microvascular disease changes. There is right frontal volume loss and encephalomalacia. Normal basal ganglia and thalami. Normal brainstem. Normal cerebellum. There is no intracranial hemorrhage. There are no findings of an acute ischemic infarction. Normal visualized paranasal sinuses. CT/Brain/Head without Contrast IMPRESSION: Chronic involutional changes of the brain. Electronically Signed: Chance Hutchinson MD at 18:58 EDT ,
--- NOTE | 2024-03-16 18:03 | EX.ED.GENINJ ---
HPI History of Present Illness Chief Complaint: Head Injury Detail of Chief Complaint: Head injury secondary to fall yesterday afternoon Informant: patient and parent Onset/Context/Timing Onset: Today (Today they noticed he has trouble walking and walking to the right) and Yesterday Mechanism/Context: Blunt Injury Location: Patient has an abrasion over the left frontal temporal region Current Severity: Per parents he does not proceed pain Maximum Severity: Unable to determine Worsened by: Nothing Relieved by: Nothing Associated Symptoms Associated Symptoms: Positive for Inability to ambulate (Difficulty ambulating) and Amnesia (Unable to assess); Negative for Parasthesias, Weakness or Loss of function Narrative Narrative: Patient is a 53-year-old male. He has history of Down syndrome, sick sinus syndrome, thyroid disease, partial seizures as well as a pacemaker. He has a prior history of subdural hematoma August 2023 secondary to fall. With him having evidence of head trauma now having difficulty walking parents contacted his doctor who recommended he come to the emergency room for evaluation. History is limited due to his cognitive impairment secondary to Down syndrome. Per parents has been no vomiting. Per parents he has not complained of any head pain. Prior similar symptoms: Yes Recent Illness/Hospitalization: No [facility] Medical History History of partial seizures Presence of permanent cardiac pacemaker (~12/10/21) VSD (ventricular septal defect) Wears hearing aid in both ears Hearing loss, left Hearing loss, right History of echocardiogram Wears glasses Depression Anxiety Thyroid disease Down's syndrome Loss of consciousness Non-smoker BPH (benign prostatic hyperplasia) Stroke, hemorrhagic Congenital heart disease Home Medications ?Medication ?Instructions ?Recorded ?Last Taken ?Type cholecalciferol (vitamin D3) 50 50 mcg PO DAILY supplement 06/05/21 02/28/23 History mcg (2,000 unit) tablet (Vitamin D3) simvastatin 20 mg tablet 20 mg PO DAILY cholesterol 06/05/21 02/27/23 History melatonin 5 mg tablet 5 mg PO QHS 09/26/21 02/27/23 History cetirizine 10 mg tablet (Zyrtec) 10 mg PO DAILY PRN ALLERGIES 02/25/23 02/28/23 History levothyroxine 100 mcg tablet 100 mcg PO MOTUWETHFRSA THYROID 02/28/23 02/28/23 History clobazam 10 mg tablet 5 mg PO DAILY 09/10/23 Unknown History lamotrigine 100 mg tablet 100 mg PO BID 09/10/23 Unknown History [id number]-[id number]-vit K-lycop PO 09/10/23 Unknown History sertraline 50 mg tablet 25 mg PO DAILY 09/10/23 Unknown History zonisamide 100 mg capsule 100 mg PO DAILY 09/10/23 Unknown History Allergy/AdvReac Type Severity Reaction Status Date / Time latex Allergy PT UNSURE Verified 03/16/24 16:27 OF REACTION Penicillins (PCN) Allergy Rash Verified 03/16/24 16:27 Family History Father No problems noted. Mother No problems noted. Surgical History Hx of cholecystectomy S/P VSD repair Social History household members: family Smoking Status: Unknown if ever smoked alcohol intake: never substance use type: does not use ROS ROS ED Review of Systems ROS Unobtainable: due to mental status EXAM Physical Exam Const Vital Signs: 03/16/24 16:25 03/16/24 16:39 03/16/24 18:07 Temperature 97.6 F L Temperature Source Temporal Pulse Rate 60 81 Respiratory Rate 18 18 Respiratory Effort Normal Blood Pressure 104/76 155/78 H Blood Pressure Mean 85 103 Pulse Ox 100 98 96 Oxygen Delivery Method Room Air Room Air Room Air Positive well nourished and well developed General Appearance ED: well developed and NAD HEENT HEENT Narrative: Left frontal temporal region. There is no palpable pression. No clinical signs of basilar skull fracture. There is no CSF leak Reah rhinorrhea. There is no septal deviation hematoma. There is no dental trauma. trauma and tenderness Eyes PERRL and EOMs intact bilaterally General Eye ED: Yes other Other Details: There is no nystagmus. There is no subconjunctival hemorrhage noted. Neck full ROM General: Negative for tenderness Resp normal respiratory effort and clear to auscultation bilaterally Cardio regular rhythm, S1 normal heart sound, S2 normal heart sound and no murmurs Rate: regular rate Back/Spine normal to inspection Extremity Extremity Narrative: Limitation of use left upper extremity due to prior subdural hematoma. He was seen at urgent care yesterday for elbow pain and was determined not to have any acute problems other than contusion Neuro No oriented x3, CN's II-XII intact bilaterally, No moves all extremities, No no focal motor deficits and No no sensory deficits noted Neuro Narrative: Deficit left due to prior subdural hematoma Plantar Reflex: Downgoing: left and Upgoing (positive Babinski): right Psych Negative for mental status grossly normal or thought process normal Psych Narrative: Secondary to Down syndrome Skin Trauma: abrasion MDM MDM MDM Narrative Medical decision making narrative: Differential diagnosis would include subdural hematoma, traumatic subarachnoid hemorrhage, intraparenchymal contusion, concussion. Will obtain CT of the head. Patient was made NPO. Radiography Diagnostic Testing: Clinical Impression(s) from Imaging Studies Brain CT 03/16/24 18:01 IMPRESSION: Chronic involutional changes of the brain. Electronically Signed: Chance Hutchinson MD at 18:58 EDT , CT per my review revealed no acute process. Formal read is unremarkable. Patient's gait was observed. He has a little hitch when he walks. Romberg with eyes open and close negative. No dysmetria. He is not walking to 1 side. Feel this is due to a concussion. He will be discharged home with appropriate home-going structures. Discharge Plan Triage Chief Complaint: Head Injury ED Provider: Hayden Card Dx/Rx/DC Orders Clinical Impression: Concussion with loss of consciousness status unknown, initial encounter, Down's syndrome, History of partial seizures Instructions: ED Concussion Prescriptions: No Action cetirizine [Zyrtec] 10 mg tablet 10 mg PO DAILY PRN (Reason: ALLERGIES) simvastatin 20 mg tablet 20 mg PO DAILY Patient Comments: TAKE 1 TABLET BY MOUTH EVERYDAY AT BEDTIME cholecalciferol (vitamin D3) [Vitamin D3] 50 mcg (2,000 unit) Tablet 50 mcg PO DAILY melatonin 5 mg Tablet 5 mg PO QHS levothyroxine 100 mcg tablet 100 mcg PO MOTUWETHFRSA Patient Comments: TAKE ONE TABLET BY MOUTH ONCE DAILY TAKE ON EMPTY STOMACH sertraline 50 mg tablet 25 mg PO DAILY Patient Comments: take 1/2 tablet by mouth once a day.] jpnteira-fgj-aousl-vit K-lycop [Men's 50 Plus Multivitamin] PO clobazam 10 mg tablet 5 mg PO DAILY Patient Comments: NEW MED ADDED. PT HAS NOT STARTED YET DUE TO NOT BEING IN STOCK IN PHARMACY. zonisamide 100 mg capsule 100 mg PO DAILY Patient Comments: PT TO WEAN AND D/C ON 09/16 lamotrigine 100 mg Tablet 100 mg PO BID Primary Care Provider: Sunday Mcclelland Referrals: Sunday Mcclelland MD [Primary Care Provider] - 10-14 Days if not better Print Language: Upper Sorbian Disposition Disposition: Home, Self Care
[2024-03-16 18:07] VITALS: BP 155/78; PULSE 81; RESP 18; O2SAT 96
[2024-03-16 19:55] VITALS: BP 150/72; PULSE 78; RESP 16; TEMP 36.4; O2SAT 99
== END 2024-03-16 19:55 | disposition home or self-care (01) ==
PROVIDERS: Emergency Provider Emergency Medicine; PCP Family Medicine; Visit Provider Emergency Medicine
DX: S06.0XAA Concussion with loss of consciousness status unknown, initial encounter (principal); R26.2 Difficulty in walking, not elsewhere classified; Q90.9 Down syndrome, unspecified; W19.XXXA Unspecified fall, initial encounter
CPT/HCPCS: 70450; 99282